=== PATIENT | female | born 1945 | race Caucasian/White ===

== ENCOUNTER → 2017-10-07 06:57 | Outpatient (CLI) | payer MEDICARE, OTHER, SELFPAY ==
[2017-10-07 08:09] LABS: Hemoglobin A1c 9.7 % (4.2-6.3)
[2017-10-07 08:16] LABS: ALB/GLOB Ratio 0.9 RATIO (0.9-2.4); AST(SGOT) 22 U/L (15-37); Alanine Aminotransfer ALT/SGPT 41 U/L (13-56); Albumin, Serum 3.7 g/dL (3.2-5.0); Alkaline Phosphatase 139 U/L (45-117); Anion Gap 8 (5-15); BUN 24 mg/dL (7-18); BUN/Creat Ratio 27.5 RATIO (10-20); Calcium,Total 8.3 mg/dL (8.5-10.1); Chloride 97 mmol/L (98-107); Cholesterol 200 mg/dL (200); Creatinine, Serum 0.87 mg/dL (0.55-1.02); EST Glomerular Filtration Rate 68 mL/min (>60); Est Glom Filt Rate - Afr Amer 82 mL/min (>60); Globulin 3.9 g/dL (2.2-4.2); Glucose 250 mg/dL (74-106); High Density Lipoprotein 56 mg/dL; Potassium 3.7 mmol/L (3.5-5.1); Protein, Total 7.6 g/dL (6.4-8.2); Sodium Level 136 mmol/L (136-145); Thyroid Stim Hormone (TSH) 1.06 uIU/mL (0.358-3.74); Triglycerides 358 mg/dL; Very Low Density Lipoprotein 72 mg/dL (5-40)
== END ==
PROVIDERS: Family Provider Family Medicine; PCP Family Medicine; Visit Provider Internal Medicine Endocrinology, Diabetes & Metabolism
DX: E11.65 Type 2 diabetes mellitus with hyperglycemia (principal)
CPT/HCPCS: 36415; 80053; 80061; 83036; 84443

== ENCOUNTER 2017-12-16 10:00 | Emergency (ER) | payer MEDICARE, OTHER, SELFPAY ==
[2017-12-16 10:02] VITALS: BP 177/99; PULSE 86; RESP 16; TEMP 36.9; O2SAT 94; BMI 33.2
--- NOTE | 2017-12-16 11:07 | ED.VISSUMM ---
- ER Visit Summary Date of Service: 12/16/17 Chief Complaint: Diabetic problem History of Present Illness: The patient is a 72 F who has a diabetic monitoring device on her right arm. She states she usually wears it for 14 days. The current one is only been on for 9 days. The monitor is starting to come loose and will not connect to show a reading. She states she was told that if it comes loose she should go to the emergency room and have them go back in place. Physical Examination: Vital signs are significant for blood pressure 177/99, otherwise unremarkable. Patient sitting upright in bed reading a book. She is in no acute distress. Skin examination is significant for a white round monitoring device on the right upper arm that is loose along the anterior border. No underlying skin changes are noted. Test Results: [] Emergency Department Course and Treatment: Endocrinology nurse from the hospital came down. She states that if the device is not connecting to the monitor there is no point in trying to reattach it. It simply needs to be removed. Patient cannot get her next device for another 3 days. She was instructed to use fingerstick blood sugars until that time. The patient follows up with an slurry control operator helper through [facility] [place]. I did talk to the nursing staff for this DrMayela and updated them on the patient's current situation as well. Treatment Plan: [] Disposition: Discharge Impression: Diabetic device check This note was generated with [employer] dictation software. It may contain incorrect words, spelling, and punctuation that were not noted in review of the chart prior to signing ED Disposition - Plan for ED Patient: Chief Complaint: Other, Pain/Inj Referrals: Theodore Rodríguez DO [Primary Care Provider] -
--- NOTE | 2017-12-16 11:09 | ED.DEP ---
ED Disposition - Plan for ED Patient: Disposition: Home or Assisted Living Chief Complaint: Other, Pain/Inj Referrals: Theodore Rodríguez DO [Primary Care Provider] - Additional Instructions: Use finger stick blood sugars for the next [address] a new monitoring device.
[2017-12-16 11:21] VITALS: BP 160/70; PULSE 82; RESP 18; O2SAT 98
== END 2017-12-16 11:22 | disposition home or self-care (01) ==
PROVIDERS: Emergency Provider Emergency Medicine; Family Provider Family Medicine; PCP Family Medicine
DX: T85.628A Displacement of other specified internal prosthetic devices, implants and grafts, initial encounter (principal); Z86.73 Personal history of transient ischemic attack (TIA), and cerebral infarction without residual deficits
CPT/HCPCS: 99282

== ENCOUNTER → 2018-02-11 12:53 | Outpatient (CLI) | payer MEDICARE, OTHER, SELFPAY ==
[2018-02-11 14:59] LABS: Anion Gap 9 (5-15); BUN 23 mg/dL (7-18); Calcium,Total 9.2 mg/dL (8.5-10.1); Chloride 99 mmol/L (98-107); Creatinine, Serum 1.15 mg/dL (0.55-1.02); EST Glomerular Filtration Rate 50 mL/min (>60); Est Glom Filt Rate - Afr Amer 60 mL/min (>60); Glucose 172 mg/dL (74-106); Potassium 3.4 mmol/L (3.5-5.1); Sodium Level 140 mmol/L (136-145)
[2018-02-11 15:06] LABS: BNP,B-Type NATRIURETIC PEPTIDE < 2.0 pg/mL (0-100)
== END ==
PROVIDERS: Family Provider Family Medicine; PCP Family Medicine; Visit Provider Nurse Practitioner Family
DX: I10 Essential (primary) hypertension (principal); R06.02 Shortness of breath
CPT/HCPCS: 36415; 80048; 83880

== ENCOUNTER → 2018-02-13 06:11 | Outpatient (CLI) | payer MEDICARE, OTHER, SELFPAY ==
--- NOTE | 2018-02-13 08:07 | ECHOD_ITS ---
Reason For Study: SOB Procedure This was a 2D Doppler, Color Flow transthoracic echocardiogram. The exam was of poor technical quality due to body habitus. The study was technically difficult. Exam performed in department. Left Ventricle Normal LV size. Left ventricular systolic function is normal. The estimated ejection fraction is 65 %. Normal diastology for age. No regional wall motion abnormalities noted. Right Ventricle Normal RV size. Normal systolic function. Atria Normal left atrium. Normal right atrium. No doppler evidence for ASD. Mitral Valve There is no mitral annular calcification. Normal mitral valve. Trivial mitral valve insufficiency. Tricuspid Valve Normal tricuspid valve. Mild tricuspid valve insufficiency. Right ventricular systolic pressure estimated to be 25 mmHg. Aortic Valve Trisinus/trileaflet aortic valve. Mild focal aortic valve calcification. Pulmonic Valve The pulmonic valve is not well visualized. Trivial pulmonic valve insufficiency. Great Vessels Normal sized aortic root. Pericardium/Pleural No pericardial effusion. MMode/2D Measurements & Calculations LVIDd: 3.7 cm IVSd: 1.3 cm Ao root diam: 3.2 cm LVIDs: 2.4 cm LVPWd: 1.2 cm RVDd: 3.1 cm FS: 35.9 % LAV(MOD-bp): 24.2 ml LA A4 area: 9.9 cm2 RA A4 area: 8.1 cm2 LAV(MOD-bp) Indexed: 13.5 ml/m2 LAV(MOD-sp2): 29.5 ml LAV(MOD-sp4): 20.0 ml Doppler Measurements & Calculations MV E max klaus: 54.5 cm/sec Lat Peak E' Klaus: 5.6 cm/sec Med Peak E' Klaus: 4.1 cm/sec MV A max klaus: 97.1 cm/sec E/E' lat: 9.7 E/E' med: 13.2 MV E/A: 0.56 Ao V2 max: 118.9 cm/sec LV V1 max: 96.4 cm/sec PA V2 max: 79.1 cm/sec Ao max P.7 mmHg LV V1 max P.7 mmHg Ao V2 mean: 84.3 cm/sec Ao mean P.3 mmHg Ao V2 VTI: 21.9 cm TR max klaus: 233.5 cm/sec TR max P.8 mmHg Interpretation Summary The study was technically difficult. Left ventricular systolic function is normal. The estimated ejection fraction is 65 %. Trivial mitral valve insufficiency. Mild tricuspid valve insufficiency. Mild focal aortic valve calcification. Trivial pulmonic valve insufficiency. Right ventricular systolic pressure estimated to be 25 mmHg. Normal diastology for age. Ordering Physician: RENZO Saldana Referring Physician: Theodore Rodríguez M.D. Performed By: Ana Longoria RDCS, SANJANAT
== END ==
PROVIDERS: Family Provider Family Medicine; PCP Family Medicine; Visit Provider Nurse Practitioner Family
DX: R06.02 Shortness of breath (principal); R07.9 Chest pain, unspecified
CPT/HCPCS: 93306

== ENCOUNTER → 2018-02-24 08:55 | Outpatient (CLI) | payer MEDICARE, OTHER, SELFPAY ==
--- NOTE | 2018-02-24 08:59 | STEWCON_ITS ---
Reason For Study: CAD Stress Results Protocol: Dobutamine Stress Echo Maximum Predicted HR: 150 bpm Target HR: 128 bpm% Maximum Pre dicted HR: 87 % DurationHeart Rate Stage (mm:ss) (bpm) BPCom ment Baseline 73 167/87 Definity 5 ML Diluted Given; No Chest Pain DSE 10 MCG 3:27 71 160/65No Chest Pain DSE 20 MCG 3:00 10 0 160/61No Chest Pain DSE 30 MCG 3:00 11 6 145/59No Chest Pain DSE 40 MCG 3:45 13 0 132/61Atropine 0.25 MG IVP; No Chest Pain Recovery 88 133/62 No Chest Pain Stress Duration: 13:12 mm:ss Maximum Stress HR: 130 bpm Baseline Echocardiogram Findings Stress Echo Wall motion Data Resting WMIntermediate WMStress WM Resting Wall Motion Wall Motion Int. Wall Motion Stress All segments Normal. All segments Hyperkinetic. All segments Hyperkinetic. Ejection Fraction 55 %. Ejection Fraction 65 %. Ejection Fraction 75 %. Stress Results Heart rate response: target heart rate achieved Arrhythmias: occasional PVC during infusion and recovery; isolated ventricular couplet during infusion. EKG Data Baseline ECG: NSR. Peak pharmacologic ECG: no obvious ECG changes. Symptoms with Stress No c/o chest pain during infusion / recovery. Interpretation Summary The study was technically difficult. Contrast injection was performed. Negative (adequate) Dobutamine Stress Echocardiogram Ordering Physician: RENZO Saldana Referring Physician: Tom Cabrales M.D. Performed By: Alise Sutton RDCS
== END ==
PROVIDERS: Family Provider Family Medicine; PCP Family Medicine; Visit Provider Nurse Practitioner Family
DX: R07.9 Chest pain, unspecified (principal); G47.33 Obstructive sleep apnea (adult) (pediatric); Z79.899 Other long term (current) drug therapy; I25.10 Atherosclerotic heart disease of native coronary artery without angina pectoris; I10 Essential (primary) hypertension; E11.9 Type 2 diabetes mellitus without complications; K21.9 Gastro-esophageal reflux disease without esophagitis; Z79.4 Long term (current) use of insulin
CPT/HCPCS: 93017; 93350; J7030; Q9957; A4216; C8928

== ENCOUNTER → 2018-05-01 08:05 | Outpatient (CLI) | payer MEDICARE, OTHER, SELFPAY ==
[2018-05-01 09:13] LABS: Hemoglobin A1c 8.9 % (4.2-6.3)
[2018-05-01 09:27] LABS: AST(SGOT) 25 U/L (15-37); Alanine Aminotransfer ALT/SGPT 45 U/L (13-56); Albumin, Serum 3.9 g/dL (3.2-5.0); Alkaline Phosphatase 137 U/L (45-117); Anion Gap 6 (5-15); BUN 16 mg/dL (7-18); BUN/Creat Ratio 18.5 RATIO (10-20); Calcium,Total 8.6 mg/dL (8.5-10.1); Chloride 99 mmol/L (98-107); Cholesterol 294 mg/dL (200); Creatinine, Serum 0.86 mg/dL (0.55-1.02); EST Glomerular Filtration Rate 69 mL/min (>60); Est Glom Filt Rate - Afr Amer 83 mL/min (>60); Globulin 3.8 g/dL (2.2-4.2); Glucose 269 mg/dL (74-106); High Density Lipoprotein 58 mg/dL; Potassium 4.4 mmol/L (3.5-5.1); Protein, Total 7.7 g/dL (6.4-8.2); Sodium Level 134 mmol/L (136-145); Thyroid Stim Hormone (TSH) 2.14 uIU/mL (0.358-3.74); Triglycerides 297 mg/dL; Very Low Density Lipoprotein 59 mg/dL (5-40)
== END ==
PROVIDERS: Family Provider Family Medicine; PCP Family Medicine; Referring Provider Internal Medicine Endocrinology, Diabetes & Metabolism; Visit Provider Internal Medicine Endocrinology, Diabetes & Metabolism
DX: E11.65 Type 2 diabetes mellitus with hyperglycemia (principal)
CPT/HCPCS: 36415; 80053; 80061; 83036; 84443

== ENCOUNTER 2019-02-25 20:07 | Emergency (ER) | payer MEDICARE, OTHER, SELFPAY ==
[2018-10-01 15:19] VITALS: BMI 33.3
[2019-02-25 20:09] VITALS: BP 165/82; PULSE 83; RESP 18; TEMP 36.6; O2SAT 96; BMI 33.0
--- NOTE | 2019-02-25 20:41 | RAD_ITS ---
STUDY: X-RAY - RIGHT TIBIA AND FIBULA REASON FOR EXAM: Female, 73 years old. Pain after falling. TECHNIQUE: 2 view(s) of the tibia and fibula were obtained. COMPARISON: None. FINDINGS: Multiple fragments at the tip of the lateral malleolus of indeterminate age. Fragments at the tip of the lateral malleolus of indeterminate age. Otherwise normal tibia and fibula status post total knee replacement with no acute hardware findings. Diffuse swelling of the ankle and medial side of the leg. RAD/Tibia & Fibula 2 Views IMPRESSION: Small osseous fragments at the tip of the medial and lateral malleolar line. Avulsion injuries of indeterminate age. Otherwise negative for fracture of the tibia or fibula. Total knee replacement intact with no hardware abnormality. Electronically Signed: Jessica Livingston MD at 21:37 EDT , Service support ,
--- NOTE | 2019-02-25 20:42 | ED.DCSUM_ITS ---
- ER Visit Summary Date of Service: 02/25/19 Chief Complaint: Fall x2 with right lower leg and left posterior shoulder pain. History of Present Illness: The patient is a 73 F getting in her hammock when it was over and she fell to the ground. She got back in it and fell again. She denies any head injury. No LOC. She is on no blood thinners besides aspirin. Denies any neck pain. Complaining of left posterior shoulder pain and right lower leg pain. No chest or abdominal pain. Physical Examination: Older female no acute distress. Vital signs are stable. She is afebrile. HEENT exam unremarkable atraumatic. Pupils round reactive light. No hematoma or swelling to the face or scalp. C-spine nontender. Back nontender. Trachea midline. Lungs clear to auscultation bilaterally. Heart regular rate and rhythm no murmur. Chest were nontender. Abdomen soft nontender. Pelvic girdle intact. Extremities moves all 4. Neurovascular intact. She has limited range of motion with extension her left elbow which is chronic. Both hands neurovascular intact. Her left posterior shoulder is swollen and tender. There is no gross bony deformity. Her right lower leg just below the knee the tib-fib is swollen and tender. Right foot neurovascular intact with normal touch sensation pulse and dorsi plantarflexion. Left lower extremity is unremarkable as is the right upper extremity. Neurologically she is awake and alert. Hard of hearing but no focal motor deficits. Answering questions and acting appropriately. Test Results: Left shoulder x-ray 3 view shows no acute abnormality read by myself. Right tibia and fibula x-ray no acute abnormality read by myself 2 views. Prosthesis has no acute abnormality either. Emergency Department Course and Treatment: Treated with [place] for pain. Repeat exam she is doing well at 2130. I discussed the x-ray results with her and her . Treatment Plan: She will use Tylenol at home for pain.. Disposition: discharge Impression: Fall out of a hammock x2 Left shoulder contusion Right lower leg contusion This note was generated with [employer] dictation software. It may contain incorrect words, spelling, and punctuation that were not noted in review of the chart prior to signing ED Disposition - Plan for ED Patient: Referrals: Theodore Rodríguez DO [Primary Care Provider] -
[2019-02-25] MEDS: HYDROcodone Bitartrate/Apap 5/325 Tablet PO (20:56)
--- NOTE | 2019-02-25 20:57 | RAD_ITS ---
STUDY: X-RAY - LEFT SHOULDER REASON FOR EXAM: Female, 73 years old. Pain after falling from hammock. TECHNIQUE: 4 view(s) of the shoulder. COMPARISON: None. FINDINGS: Normal glenohumeral articulation. Normal acromioclavicular joint. Normal acromion. Normal humeral head and visualized proximal humerus. The soft tissue structures are unremarkable. Normal visualized pulmonary apex. RAD/Shoulder min 2 Views IMPRESSION: Normal x-ray examination of the shoulder. Electronically Signed: Jessica Livingston MD at 21:38 EDT , Service support ,
--- NOTE | 2019-02-25 21:32 | ED.DEP ---
ED Disposition - Plan for ED Patient: Disposition: Home or Assisted Living Instructions: CONTUSION, Lower Extremity Referrals: Theodore Rodríguez DO [Primary Care Provider] - As Needed Additional Instructions: Ice and elevate both your left shoulder and right knee. You have significant bruises to both. Tylenol and Motrin or Naprosyn for pain. Your x-rays are unremarkable tonight. Follow-up if not improving.
== END 2019-02-25 21:57 | disposition home or self-care (01) ==
PROVIDERS: Emergency Provider Emergency Medicine; Family Provider Family Medicine; PCP Family Medicine
DX: S40.012A Contusion of left shoulder, initial encounter (principal); S80.11XA Contusion of right lower leg, initial encounter; W17.89XA Other fall from one level to another, initial encounter; Y93.9 Activity, unspecified; Y92.9 Unspecified place or not applicable; Y99.9 Unspecified external cause status; R19.7 Diarrhea, unspecified; I25.10 Atherosclerotic heart disease of native coronary artery without angina pectoris; E11.9 Type 2 diabetes mellitus without complications; I10 Essential (primary) hypertension; Z79.4 Long term (current) use of insulin; Z79.899 Other long term (current) drug therapy; Z86.73 Personal history of transient ischemic attack (TIA), and cerebral infarction without residual deficits; Z95.5 Presence of coronary angioplasty implant and graft
CPT/HCPCS: 73030; 73590; 99282

== ENCOUNTER → 2019-03-15 07:05 | Outpatient (CLI) | payer MEDICARE, OTHER, SELFPAY ==
[2019-02-25 20:09] VITALS: BMI 33.0
[2019-03-15 08:40] LABS: ALB/GLOB Ratio 0.9 RATIO (0.9-2.4); AST(SGOT) 23 U/L (15-37); Alanine Aminotransfer ALT/SGPT 37 U/L (13-56); Albumin, Serum 3.4 g/dL (3.2-5.0); Alkaline Phosphatase 170 U/L (45-117); Anion Gap 8 (5-15); BUN 17 mg/dL (7-18); BUN/Creat Ratio 21.1 RATIO (10-20); Calcium,Total 8.4 mg/dL (8.5-10.1); Chloride 104 mmol/L (98-107); Cholesterol 276 mg/dL (200); Creatinine, Serum 0.81 mg/dL (0.55-1.02); EST Glomerular Filtration Rate 74 mL/min (>60); Est Glom Filt Rate - Afr Amer 90 mL/min (>60); Globulin 3.9 g/dL (2.2-4.2); Glucose 187 mg/dL (74-106); High Density Lipoprotein 63 mg/dL; Potassium 3.4 mmol/L (3.5-5.1); Protein, Total 7.3 g/dL (6.4-8.2); Sodium Level 139 mmol/L (136-145); Triglycerides 148 mg/dL; Very Low Density Lipoprotein 30 mg/dL (5-40)
[2019-03-15 08:52] LABS: Hemoglobin A1c 9.1 % (4.2-6.3)
== END ==
PROVIDERS: Family Provider Family Medicine; PCP Family Medicine; Referring Provider Internal Medicine Endocrinology, Diabetes & Metabolism; Visit Provider Internal Medicine Endocrinology, Diabetes & Metabolism
DX: E11.65 Type 2 diabetes mellitus with hyperglycemia (principal)
CPT/HCPCS: 36415; 80053; 80061; 83036

== ENCOUNTER 2019-03-17 13:30 | Outpatient (RCR) | payer MEDICARE, OTHER, SELFPAY ==
[2018-10-01 15:19] VITALS: BMI 33.3
--- NOTE | 2019-02-17 09:18 | HP.PTEVAL ---
Patient's Visit Information MARINA DALTON is a 73 year old F referred to Physical Therapy by Dirk Mckeon MD with a diagnosis of Lumbago with sciatica. Date of Evaluation: 02/17/19 Physical Therapist: JIMBO De La OT, OCS, CSCS - Visit Plan Frequency: 2x /Week Duration: 4-6 Weeks Plan: Will need water proof dressing on L UE to cover glucometer. Will check with doctor if it can be submerged and bring in box for us to look at. Should wear waterproof dressing over it until verified adn should check blood sugar before and after. Pt to be using cane. 2x/week for 4 weeks for water therapy for LB ROM, NS core strength, LE strength and muscle pumping and balance( tandem stance, fucntional weight shifts). - Subjective Findings: Dr. Mckeon wants her to have water therapy. Legs go to sleep when she stands up. Had x ray and will have MRI. Walking 300 feet makes go to sleep. Gone after sitting a while. No real pain. This leg to sleep thing has been going on for months and insidiously. Had a stroke 2 yrs ago. 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 Sleeping well. Has not fallen yet to the ground. Needs cart in [facility]. Lives with in one story modular home with steps to enter with railing. Struggle on steps but she can do it , hard to tell where feet are. Basic ADLs are OK but standing makes them hard to do. Needs to sit frequently. Has walker with seat that she uses at times in the kitchen. 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 Takes her longer to do things at home as she needs frequent breaks especially while she is washing dishes. HEP: No. Was in pool therapy years ago, not sure why but it helped. - Pain B LE tingly Pain Intensity (Out of 10): 0 Pain Intensity Range: 0, 5 - Objective blood sugar 250 to start and will take meds at home(doesn't have them with her). Walks with neuropathic gait pattern but able to speed up nicey with cues. Transfers I. Steps recip with rail. AROM ankles WFL and strength 4-/5, knee aROM WFL and hips WFL. Tightness present in gastroc and HS and quads moderately. strength knees 4/5 and hips 3+ abd and ext adn flexion. Diminished sensation to gross light touch in B LE R>L distally in feet. Tingles after walking 200 feet today and starts to walk faster to get to sitting quicker. No LOB today. reflexes 0/3 R patella and 1/3 L, achilles 1/3 B. LB aROM is mod limited in ext and min limited in flexion and SB without pain or hesitation. Palpable pedal pulse hard to find B in feet. - Balance Scores Functional Gait Assessment Score: 21 % Disability: 30.0000 - Goals Goal 1:: Walk one lap HP without tingly in legs. Goal Time Frame: 4-6 Weeks Goal 2:: Pt feel 75% better in tingling in legs and able to wash dishes without a break. Goal Time Frame: 4-6 Weeks Goal 3:: FGA to diminish fall risk. Goal Time Frame: 4-6 Weeks - Rehabilitation Potential Physical Therapy Diagnosis: Leg tingly, back degeneration vs neuroapthy vs circulatory. Rehabilitation Potential: Questionable - Anticipated Interventions Patient/Client Instruction: Educate patient on: Condition, Plan of Care For the Purpose of:: To increase tolerance to activity/condition/position, To improve gait and locomotor functions, To improve balance Therapeutic Exercise to Include: Strength training, Balance training, Flexibilty training, Gait and locomotor training, In an aquatic setting, Active ROM, Dynamic Lumbar Stabilization For the Purpose of:: To increase ROM, To increase tolerance to activity/condition/position, To improve ability of physical actions for home/community/work/leisure, To improve gait and locomotor functions, To improve balance, To improve safety with gait Thank you for the opportunity to evaluate your patient. For Medicare and Medicare HMO plans, please review the plan of care and approve it. It will need to be FAXED BACK to us at [phone] for Medicare purposes. For Medicare only, by signing this I certify the plan of care. Please let me know if there are questions or concerns regarding this plan of care. Physician Signature: Date:
--- NOTE | 2019-03-17 13:55 | HP.PTDCSUM ---
HP - PT D/C Summary It has been my pleasure to treat MARINA DALTON under orders from Dirk Mckeon MD, for the diagnosis of Lumbago with sciatica for a total of 8 visit(s). Discharge Date: 03/17/19 Please see the following information for a summary of their discharge status. - Subjective Subjective: Therapy seemed to help first 3-4 times but then fell getting on hammock and hurt R leg. Pride adn shoulder adn toe was also hurt. LB not painful today. Walking distance can vary day to day. Rainy days are worse. Tingly R leg persists. No f/u scheduled with doctor Mike. Pt says she can get around if she takes her time. No hurries. Doing HEP focussing on trasnfers and LB ROM at home. Pt feels like she is getting around OK adn can manage this on her own with the exercises we have given her. - Pain B LE tingly Pain Intensity (Out of 10): 0 R denton/ankle Pain Intensity (Out of 10): 0 L Shldr Pain Intensity (Out of 10): Unrated - Overall Improvement % Improvement: 50 - Objective Objective/Function: FGA is +1. Walking is improved today and legs fatigue less with 300 foot walk. Prefers R foot on steps adn needs rail. Trasnfers out of chair without UE. OVERALL SLOW IMPROVEMENT. STILLHASS SOME SIGNS OF MOTOR CONTROL ISSUES AFTER DISTANCE WALKING IN LE BUT CAN MANAGE WITH HOME EXERCISES AND REST WHEN THIS OCCURS. - Goals Goal 1:: Walk one lap HP without tingly in legs. Goal Progress: Goal Met Goal 2:: Pt feel 75% better in tingling in legs and able to wash dishes without a break. Goal Progress: 50% Goal 3:: FGA to diminish fall risk. Goal Progress: +1, not met. - Plan Plan: pt ready to be done with PT, d/c , will manage with rests adn HEP. - D/C Information Discharge Comments: Will continue via HEP stretches. If there are questions or concerns regarding this patient's physical therapy, please feel free to call me at [phone]. Thank you for the referral of this patient. Sincerely, Mango Landon, DPT, OCS, CSCS
== END 2019-03-17 19:00 | disposition home or self-care (01) ==
LOC: PT 13:30
PROVIDERS: Family Provider Family Medicine; PCP Family Medicine; Visit Provider Orthopaedic Surgery
DX: M54.41 Lumbago with sciatica, right side (principal); M51.36 Other intervertebral disc degeneration, lumbar region
CPT/HCPCS: 97113; 97162; 97530

== ENCOUNTER 2019-04-05 11:06 | Emergency (ER) | payer MEDICARE, OTHER, SELFPAY ==
[2019-04-05 10:44] VITALS: BMI 33.0
[2019-04-05 11:07] VITALS: BP 163/83; PULSE 90; RESP 17; TEMP 37; O2SAT 95; BMI 33.6
--- NOTE | 2019-04-05 11:28 | VDLE_ITS ---
Reason For Study: Swelling RIGHT GSV is normal. CFV is compressible, spontaneous, phasic, competent and demonstrates normal augmentation. FV is compressible, spontaneous, phasic, competent and demonstrates normal augmentation. POP V is compressible, spontaneous, phasic, competent and demonstrates normal augmentation. T/P Trunk is compressible. PTV is compressible. RT PerV is compressible. Patient unable to tolerate compression in the groin Hypoechoic, non vascular structure noted Rt prox calf measuring 1.47cm x 5.50cm, over area of injury/swelling. Procedure Exam performed portable in ED. A preliminary report was called and/or faxed to Dr. White. Interpretation Summary There is no evidence of right lower extremity deep vein thrombosis. Right great saphenous vein appears patent and compressible segmentally. Irregular cystic mass right proximal calf measuring 1.47 x 5.5 cm. No vascular flow noted. Clinical correlation indicated. Ordering Physician: Marci White Referring Physician: Theodore Rodríguez Performed By: Ana Longoria, ERNESTINA, RVT
--- NOTE | 2019-04-05 11:55 | ED.VISSUMM ---
- ER Visit Summary Date of Service: 04/05/19 Chief Complaint: [Pain and swelling to right leg ] History of Present Illness: The patient is a 74 F [presents with symptoms that started February 25 after a fall. Patient was seen in the emergency department and had x-rays of her right tib-fib no fractures were noted. Patient continues to have swelling and discomfort to the area. Patient was seen at urgent care today and referred to the ER to rule out DVT. She denies any fevers at home. She denies any new injury. Patient has history of prior stroke, coronary artery disease, COPD, diabetes, hypertension, and high cholesterol.] Physical Examination: [HEENT-PERRLA, EOMI. Cranial nerves II through XII grossly intact. TMs clear. Mucous membranes moist. No adenopathy. Cardiovascular-regular rate and rhythm without murmur or ectopy Lungs-clear to auscultation, chest wall stable without crepitus or subcu emphysema Abdomen-normoactive bowel sounds, soft, nontender, no rebound or rigidity, no peritoneal signs. Extremities-intact ?4, normal range of motion, normal pulses right leg-patient does have soft tissue swelling and suspected hematoma over the mid right tibia with diffuse soft tissue swelling about the calf. She is neurovascular intact distally with normal station normal cap refill. Patient has normal range of motion of the toes.] There is no erythema or warmth noted to the area of the suspected hematoma. Test Results: [Venous Doppler of the right lower extremity showed no DVT and there was a suspected hematoma.] Emergency Department Course and Treatment: [] Treatment Plan: [Patient will be referred to orthopedics for follow-up.] Disposition: [Discharged home stable condition] Impression: [Hematoma right leg] This note was generated with [employer] dictation software. It may contain incorrect words, spelling, and punctuation that were not noted in review of the chart prior to signing ED Disposition - Plan for ED Patient: Referrals: Theodore Rodríguez DO [Primary Care Provider] -
--- NOTE | 2019-04-05 12:01 | ED.DEP ---
ED Disposition - Plan for ED Patient: Instructions: Hematoma Referrals: Theodore Rodríguez DO [Primary Care Provider] - Dirk Mckeon MD [STAFF PHYSICIAN] - 3-5 Days
== END 2019-04-05 12:06 | disposition home or self-care (01) ==
LOC: ED 11:58
PROVIDERS: Emergency Provider Emergency Medicine; Family Provider Family Medicine; PCP Family Medicine
DX: S80.11XA Contusion of right lower leg, initial encounter (principal); M79.89 Other specified soft tissue disorders; W19.XXXA Unspecified fall, initial encounter; Y93.9 Activity, unspecified; Y92.9 Unspecified place or not applicable; Y99.9 Unspecified external cause status; I25.10 Atherosclerotic heart disease of native coronary artery without angina pectoris; E11.9 Type 2 diabetes mellitus without complications; I10 Essential (primary) hypertension; J44.9 Chronic obstructive pulmonary disease, unspecified; E78.00 Pure hypercholesterolemia, unspecified; Z79.02 Long term (current) use of antithrombotics/antiplatelets; Z79.4 Long term (current) use of insulin; Z79.899 Other long term (current) drug therapy; Z86.73 Personal history of transient ischemic attack (TIA), and cerebral infarction without residual deficits; Z85.43 Personal history of malignant neoplasm of ovary; Z95.5 Presence of coronary angioplasty implant and graft
CPT/HCPCS: 93971; 99282

== ENCOUNTER → 2019-04-14 06:52 | Outpatient (CLI) | payer MEDICARE, OTHER, SELFPAY ==
[2019-04-05 11:07] VITALS: BMI 33.6
[2019-04-14 07:35] LABS: Hematocrit 46.3 % (37-47); Hemoglobin 14.9 g/dL (12.0-15.0); Mean Corp Hgb Conc 32.2 g/dL (32-36); Mean Corpuscular Hgb 26.7 pg (27.0-32.0); Mean Corpuscular Volume 82.8 fL (81-99); Mean Platelet Vol. 9.7 fl (6.2-12.0); Platelet Count 282 K/mm3 (150-450); RBC Distribution Width CV 12.6 % (11.6-14.6); RBC Distribution Width SD 38.1 fl (35.1-43.9); Red Blood Count 5.59 M/mm3 (4.2-5.4); White Blood Count 5.3 K/mm3 (4.4-11.0)
[2019-04-14 07:41] LABS: Color, Urine Yellow (Yellow); Glucose, Dipstick 250 mg/dl (Normal); Ketone-Dipstick 5 mg/dl (Negative); Leukocyte Esterase-Dipstick 100 /ul (Negative); Nitrite-Dipstick Negative (Negative); Occult Blood-Urine Negative /ul (Negative); Protein-Dipstick Negative (Negative); Specific Gravity, Urine 1.025 (1.002-1.030); Urine Bilirubin Dipstick Negative (Negative); Urine Clarity Clear (Clear); Urine Urobilinogen Normal (Normal)
[2019-04-14 07:50] LABS: Protein, Urine (Random) 17.1 mg/dL (<11.9); Protein:Creat Ratio 97 mg/g CRE (0-200)
[2019-04-14 08:12] LABS: ALB/GLOB Ratio 0.9 RATIO (0.9-2.4); AST(SGOT) 30 U/L (15-37); Alanine Aminotransfer ALT/SGPT 38 U/L (13-56); Albumin, Serum 3.7 g/dL (3.2-5.0); Alkaline Phosphatase 143 U/L (45-117); Anion Gap 8 (5-15); BUN 22 mg/dL (7-18); BUN/Creat Ratio 24.9 RATIO (10-20); Bilirubin, Direct 0.12 mg/dL (0.00-0.30); Calcium,Total 8.9 mg/dL (8.5-10.1); Chloride 100 mmol/L (98-107); Cholesterol 338 mg/dL (200); Creatinine, Serum 0.88 mg/dL (0.55-1.02); EST Glomerular Filtration Rate 67 mL/min (>60); Est Glom Filt Rate - Afr Amer 81 mL/min (>60); Glucose 228 mg/dL (74-106); High Density Lipoprotein 65 mg/dL; Phosphorus 3.6 mg/dL (2.5-4.9); Protein, Total 7.7 g/dL (6.4-8.2); Sodium Level 137 mmol/L (136-145); Thyroid Stim Hormone (TSH) 2.18 uIU/mL (0.358-3.74); Triglycerides 218 mg/dL; Very Low Density Lipoprotein 44 mg/dL (5-40)
[2019-04-14 08:15] LABS: Hemoglobin A1c 9.5 % (4.2-6.3)
== END ==
PROVIDERS: Family Provider Family Medicine; PCP Family Medicine; Referring Provider Student in an Organized Health Care Education/Training Program; Visit Provider Student in an Organized Health Care Education/Training Program
DX: E11.22 Type 2 diabetes mellitus with diabetic chronic kidney disease (principal); N18.9 Chronic kidney disease, unspecified
CPT/HCPCS: 36415; 80053; 80061; 81002; 82248; 82570; 83036; 84100; 84156; 84443; 85027

== ENCOUNTER 2019-07-25 10:46 | Emergency (ER) | payer MEDICARE, OTHER, SELFPAY ==
[2019-07-25 10:47] VITALS: BP 146/75; PULSE 70; RESP 16; TEMP 36.6; O2SAT 98; BMI 30.7
--- NOTE | 2019-07-25 10:50 | ED.RN ---
checked bs in triage 43. sent to room.
[2019-07-25 11:00] VITALS: PULSE 78; RESP 20; O2SAT 98
--- NOTE | 2019-07-25 11:03 | ED.VIS.GEN ---
History of Present Illness Chief Complaint: Hypoglycemia Informant: Patient, Significant Other Onset: Hours - 4 Quality: fatigue Location: all over Current Severity: Mild Maximum Severity: Severe Worsened by: nothing Relieved by: eating sugar Associated Symptoms: shaky. no LOC. Narrative: Patient went out to breakfast this morning and accidentally took the wrong insulin. She was supposed to take 56 units of her Trulicity, but she instead injected 56 units of NovoLog. This was at 0715. She presents at 11 AM. She has bottomed out about 6 times already, she keeps eating sugar and juice that her has been giving her, but they are concerned because she keeps bottoming out. She has gone as low as 40 and not lost consciousness. At breakfast she usually takes 26 units of NovoLog as a type II diabetic. She has had no recent illness prior to this. She is not suicidal and this was simply accidental. - Past Medical History (1) Stroke Status: Chronic (2) Benign hypertension Status: Chronic (3) CAD (coronary artery disease) Status: Chronic (4) COPD (chronic obstructive pulmonary disease) Status: Chronic (5) Dyslipidemia Status: Chronic (6) Osteoarthritis Status: Chronic (7) Type II diabetes mellitus Status: Chronic Past Medical History - Allergies and Home Meds Allergies/Adverse Reactions: Allergies latex Allergy (Verified 07/25/19 11:00) Rash Penicillins Allergy (Verified 07/25/19 11:00) Hives Primary Care Physician: Theodore Rodríguez DO [Primary Care Provider] - Lives: Spouse/ Significant Other Smoking Status: Never smoker - Family History Maternal Family History: Family History (Last Reviewed 04/05/19 @ 10:44 by Araceli Ricardo) Other Cancer Family History: Reports: No pertinent history Paternal Family History: Family History (Last Reviewed 04/05/19 @ 10:44 by Araceli Ricardo) Other Cancer Family History: Reports: No pertinent history Review of Systems General: Reports: Malaise, Sweats. Denies: Chills, Fever Eyes: Denies: Visual changes - bilaterally, Diplopia ENT: Denies: Rhinorrhea, Sore throat Cardiovascular: Denies: Chest pain, Palpitations Respiratory: Denies: Dyspnea, Cough, Dyspnea on exertion Gastrointestinal: Denies: Abdominal pain, Nausea, Vomiting, Diarrhea, Melena, Hematochezia Genitourinary: Denies: Dysuria, Hematuria, Frequency Musculoskeletal: Denies: Back pain, Extremity Pain Skin: Denies: Rash, Wounds Neurological: Denies: Headache, Weakness, Numbness Physical Exam Vital Signs/Narrative: Vital Signs Temp Pulse Resp BP Pulse Ox 07/25/19 11:00 78 20 H 98 07/25/19 10:47 97.8 F 70 16 146/75 H 98 Inital Vital Signs reviewed: Yes General: Well nourished, Well developed, No Acute Distress Head: Normocephalic, Atraumatic Eyes: Perrl, EOMI ENT: Moist mucous membranes, No rhinorrhea Neck: Supple, Nontender Cardiovascular: Regular rate, Regular rhythm, No murmurs Respiratory: No distress, CTA bilaterally, Chest nontender Abdomen: Soft, Nontender, Nondistended, Normal bowel sounds Back: Nontender, Normal Inspection Extremities: Nontender, No edema Skin: Normal color, No rash Neurological: Alert, Oriented x3, Cranial nerves II-XII grossly intact, Normal Strength, Normal Sensation Psychological: Normal affect, Normal Mood Diagnostic/Tx/Re-eval - Medical Decision Making Patient was given food to eat and a D5 half-normal drip in an IV for several hours. At one point we rechecked her sugar and it was 127, we stop the drip and rechecked in 30 minutes and it was 128. She is feeling fine and is stable for discharge. ED Disposition - Plan for ED Patient: Disposition: Home or Assisted Living Diagnosis: Hypoglycemia, Poisoning by insulin and oral hypoglycemic [antidiabetic] drugs, accidental (unintentional), initial encounter Instructions: Diabetic Insulin Reaction Referrals: Theodore Rodríguez DO [Primary Care Provider] - As Needed
[2019-07-25] MEDS: Dext 5%-0.45% NS 1,000 ML 150 ML IV (11:13)
[2019-07-25 11:26] LABS: Bedside Glucose 60 mg/dL (70-110)
[2019-07-25 12:00] VITALS: BP 149/68; PULSE 65; RESP 20; O2SAT 97
[2019-07-25 13:15] VITALS: BP 133/68; PULSE 65; RESP 16; O2SAT 96
[2019-07-25 13:35] VITALS: BP 133/68; PULSE 65; RESP 17; O2SAT 96
== END 2019-07-25 13:35 | disposition home or self-care (01) ==
PROVIDERS: Emergency Provider Emergency Medicine; Family Provider Family Medicine; PCP Family Medicine
DX: T38.3X1A Poisoning by insulin and oral hypoglycemic [antidiabetic] drugs, accidental (unintentional), initial encounter (principal); E09.649 Drug or chemical induced diabetes mellitus with hypoglycemia without coma; Y92.9 Unspecified place or not applicable; I10 Essential (primary) hypertension; I25.10 Atherosclerotic heart disease of native coronary artery without angina pectoris; J44.9 Chronic obstructive pulmonary disease, unspecified; E78.5 Hyperlipidemia, unspecified; M19.90 Unspecified osteoarthritis, unspecified site; Z79.4 Long term (current) use of insulin; Z79.82 Long term (current) use of aspirin; Z79.899 Other long term (current) drug therapy; Z91.040 Latex allergy status; Z88.0 Allergy status to penicillin; Z86.73 Personal history of transient ischemic attack (TIA), and cerebral infarction without residual deficits
CPT/HCPCS: 82962; 96365; 96366; 99284; A4216; J7799

== ENCOUNTER 2019-08-11 17:13 | Emergency (ER) | payer MEDICARE, OTHER, SELFPAY ==
[2019-08-11 17:14] VITALS: BP 153/73; PULSE 75; RESP 18; TEMP 36.4; O2SAT 96; BMI 23.5
--- NOTE | 2019-08-11 17:58 | ED.VISSUMM ---
- ER Visit Summary Date of Service: 08/11/19 Chief Complaint: Constipation History of Present Illness: The patient is a 74 F who presents with constipation that has been getting worse over the past 3 days. Patient states she has some sharp rectal pain and pressure type pain in her rectum. Patient states this has been getting worse over the past 3 days. Patient has tried [id number] laxatives from her primary care physician with no improvement. Patient states nothing makes it better or worse. Patient denies any fevers or chills. Patient denies any abdominal pain. Patient admits to some nausea but denies any vomiting. Physical Examination: Vital signs are stable. Patient is afebrile. Patient is in no acute distress. Oral mucosa is pink and moist. Neck is supple. Trachea is midline. There is no JVD noted. Heart was regular rate and rhythm. Lungs are clear and equal bilaterally. Abdomen is soft. Bowel sounds are normal. There is no tenderness. There is no rebound or guarding noted. Skin is warm dry. Cranial nerves II through XII are intact. There are no focal motor or sensory deficits noted. Extremities are intact. There is no calf tenderness or edema. Emergency Department Course and Treatment: Patient was given a soapsuds enema here. Patient was able to have a large bowel movement after this. Patient felt better on reevaluation. Patient was instructed to continue her laxatives and stool softeners as prescribed. Patient was instructed to follow-up with her primary care physician in 5 to 7 days. Patient was instructed to eat a high-fiber diet. Patient understood and was agreeable with the plan. All questions were answered. Disposition: Discharge home Impression: Constipation This note was generated with [employer] dictation software. It may contain incorrect words, spelling, and punctuation that were not noted in review of the chart prior to signing ED Disposition - Plan for ED Patient: Disposition: Home or Assisted Living Diagnosis: Constipation Instructions: CONSTIPATION (Adult) Referrals: Theodore Rodríguez DO [COURTESY STAFF PHYSICIAN] - 5-7 Days
== END 2019-08-11 20:07 | disposition home or self-care (01) ==
PROVIDERS: Emergency Provider Emergency Medicine; PCP Student in an Organized Health Care Education/Training Program
DX: K59.00 Constipation, unspecified (principal); R30.0 Dysuria; I25.10 Atherosclerotic heart disease of native coronary artery without angina pectoris; E11.9 Type 2 diabetes mellitus without complications; Z79.84 Long term (current) use of oral hypoglycemic drugs; Z79.82 Long term (current) use of aspirin; Z79.4 Long term (current) use of insulin; Z79.899 Other long term (current) drug therapy; Z95.5 Presence of coronary angioplasty implant and graft
CPT/HCPCS: 99284

== ENCOUNTER → 2019-09-14 07:09 | Outpatient (CLI) | payer MEDICARE, OTHER, SELFPAY ==
[2019-09-14 07:52] LABS: Hematocrit 38.8 % (37-47); Hemoglobin 12.8 g/dL (12.0-15.0); Mean Corpuscular Hgb 27.2 pg (27.0-32.0); Mean Corpuscular Volume 82.6 fL (81-99); Mean Platelet Vol. 9.4 fl (6.2-12.0); Platelet Count 338 K/mm3 (150-450); RBC Distribution Width SD 36.8 fl (35.1-43.9); White Blood Count 10.6 K/mm3 (4.4-11.0)
[2019-09-14 07:57] LABS: Protein, Urine (Random) 16.7 mg/dL (<11.9); Protein:Creat Ratio 165 mg/g CRE (0-200)
[2019-09-14 08:13] LABS: AST(SGOT) 24 U/L (15-37); Alanine Aminotransfer ALT/SGPT 39 U/L (13-56); Albumin, Serum 3.6 g/dL (3.2-5.0); Alkaline Phosphatase 159 U/L (45-117); Anion Gap 7 (5-15); BUN 23 mg/dL (7-18); BUN/Creat Ratio 24.5 RATIO (10-20); Bilirubin, Direct 0.15 mg/dL (0.00-0.30); Calcium,Total 8.9 mg/dL (8.5-10.1); Chloride 99 mmol/L (98-107); Cholesterol 157 mg/dL (200); Creatinine, Serum 0.94 mg/dL (0.55-1.02); EST Glomerular Filtration Rate 62 mL/min (>60); Est Glom Filt Rate - Afr Amer 75 mL/min (>60); Globulin 4.2 g/dL (2.2-4.2); Glucose 245 mg/dL (74-106); High Density Lipoprotein 55 mg/dL; Phosphorus 3.6 mg/dL (2.5-4.9); Potassium 3.9 mmol/L (3.5-5.1); Protein, Total 7.8 g/dL (6.4-8.2); Sodium Level 136 mmol/L (136-145); Triglycerides 193 mg/dL; Very Low Density Lipoprotein 39 mg/dL (5-40)
== END ==
PROVIDERS: PCP Student in an Organized Health Care Education/Training Program; Referring Provider Student in an Organized Health Care Education/Training Program; Visit Provider Student in an Organized Health Care Education/Training Program
DX: I12.9 Hypertensive chronic kidney disease with stage 1 through stage 4 chronic kidney disease, or unspecified chronic kidney disease (principal); N18.9 Chronic kidney disease, unspecified; E78.5 Hyperlipidemia, unspecified
CPT/HCPCS: 36415; 80048; 80061; 80076; 82570; 84100; 84156; 85027

== ENCOUNTER → 2019-09-20 12:52 | Outpatient (CLI) | payer MEDICARE, OTHER, SELFPAY ==
[2019-09-20 14:38] LABS: PTHIN 76.8 pg/mL (18.4-80.1)
[2019-09-20 14:42] LABS: Vitamin B12 753 pg/mL (211-911); Vitamin D,25 Hydroxy 16.6 ng/mL
[2019-09-20 14:52] LABS: Thyroid Stim Hormone (TSH) 1.07 uIU/mL (0.358-3.74)
== END ==
PROVIDERS: PCP Student in an Organized Health Care Education/Training Program; Referring Provider Student in an Organized Health Care Education/Training Program; Visit Provider Student in an Organized Health Care Education/Training Program
DX: N18.9 Chronic kidney disease, unspecified (principal); E11.65 Type 2 diabetes mellitus with hyperglycemia; R41.89 Other symptoms and signs involving cognitive functions and awareness
CPT/HCPCS: 36415; 82306; 82607; 82746; 83970; 84443

== ENCOUNTER 2019-09-26 14:46 | Emergency (ER) | payer MEDICARE, OTHER, SELFPAY ==
[2019-09-26 14:47] VITALS: BP 183/83; PULSE 70; RESP 14; TEMP 36.4; O2SAT 97; BMI 34.9
[2019-09-26 15:24] LABS: Absolute Lymphocyte Count 2.52 X10^3/uL (0.83-4.51); Absolute Neutrophil Count 5.7 X10^3/uL (2.0-7.7); Basophil# 0.06 X10^3/uL; Basophil% 0.6 % (0-1); Eosinophil# 0.52 X10^3/uL; Eosinophils% 5.2 % (0-5); Hematocrit 37.8 % (37-47); Hemoglobin 12.3 g/dL (12.0-15.0); Lymphocyte # 2.52 X10^3/ul (4.0); Lymphocyte % 25.2 % (19-41); Mean Corp Hgb Conc 32.5 g/dL (32-36); Mean Corpuscular Hgb 27.1 pg (27.0-32.0); Mean Corpuscular Volume 83.3 fL (81-99); Mean Platelet Vol. 9.8 fl (6.2-12.0); Monocyte# 1.12 X10^3/uL; Monocyte% 11.2 % (0-10); NRBC Flagged by Analyzer 0 % (0-5); Neutrophil # 5.73 X10^3/uL (2.7-7.7); Neutrophil % 57.4 % (47-70); Platelet Count 387 K/mm3 (150-450); RBC Distribution Width CV 12.7 % (11.6-14.6); RBC Distribution Width SD 38.8 fl (35.1-43.9); Red Blood Count 4.54 M/mm3 (4.2-5.4)
--- NOTE | 2019-09-26 15:30 | RAD_ITS ---
STUDY: X-RAY CHEST REASON FOR EXAM: Female, 74 years old. HYPOGLYCEMIA, WEAKNESS, CONFUSION TECHNIQUE: PA and lateral views of the chest. COMPARISON: 10/01/2016 FINDINGS: EKG leads project over the chest. Lungs are underexpanded. Patchy opacity in the left lung base is new since the prior study. There is no demonstrated pleural abnormality. Cardiac silhouette enlargement may be accentuated by degree of hypoinflation. Normal mediastinum and isreal. Normal visualized pulmonary arteries. Normal visualized aortic arch and descending thoracic aorta. There is demineralization of the osseous structures. Normal visualized ribs, clavicles, and shoulders. Cholecystectomy surgical clips are present. RAD/Chest PA and Lateral IMPRESSION: 1. Left lower lobe infiltrate may represent atelectasis versus early pneumonia. Hypoinflation. Electronically Signed: Jose Reyes MD ([place]) at 15:49 EDT , Service support ,
[2019-09-26 15:34] LABS: ALB/GLOB Ratio 0.9 RATIO (0.9-2.4); AST(SGOT) 31 U/L (15-37); Alanine Aminotransfer ALT/SGPT 42 U/L (13-56); Albumin, Serum 3.7 g/dL (3.2-5.0); Alkaline Phosphatase 158 U/L (45-117); Anion Gap 9 (5-15); BUN 32 mg/dL (7-18); BUN/Creat Ratio 26.4 RATIO (10-20); Calcium,Total 9.2 mg/dL (8.5-10.1); Chloride 104 mmol/L (98-107); Creatinine, Serum 1.21 mg/dL (0.55-1.02); EST Glomerular Filtration Rate 46 mL/min (>60); Est Glom Filt Rate - Afr Amer 56 mL/min (>60); Estimated Creatinine Clearance 31.71 ml/min; Globulin 4.2 g/dL (2.2-4.2); Glucose 49 mg/dL (74-106); Potassium 3.4 mmol/L (3.5-5.1); Protein, Total 7.9 g/dL (6.4-8.2); Sodium Level 141 mmol/L (136-145)
[2019-09-26 15:54] VITALS: BP 146/56; PULSE 71; RESP 16; O2SAT 98
[2019-09-26 15:56] LABS: Mucous, Urine 0 SEEN /hpf (<or=2+); Squamous Epithelial Cells - UA 0 SEEN /hpf (5-10)
[2019-09-26] MEDS: 0.9% Normal Saline 1,000 ML 150 ML IV (15:59)
[2019-09-26 16:00] VITALS: BP 136/72; PULSE 72; RESP 16; O2SAT 98
[2019-09-26 16:01] LABS: Color, Urine Yellow (Yellow); Glucose, Dipstick 100 mg/dl (Normal); Ketone-Dipstick Negative (Negative); Leukocyte Esterase-Dipstick Negative /ul (Negative); Nitrite-Dipstick Negative (Negative); Occult Blood-Urine 50 /ul (Negative); Protein-Dipstick 100 mg/dl (Negative); Specific Gravity, Urine 1.015 (1.002-1.030); Urine Bilirubin Dipstick Negative (Negative); Urine Clarity Clear (Clear); Urine Urobilinogen Normal (Normal)
--- NOTE | 2019-09-26 16:02 | ED.RN ---
1 AMP D50 GIVEN IMMEDIATELY AFTER ESTABLISHING IV ACCESS. FAMILY CHECKING BLOOD GLUCOSE CONSISTENTLY AFTER ARRIVAL WITH HOME METER FREESTYLE HANK 14 DAY MONITOR,
[2019-09-26 16:09] LABS: Red Blood Cells-Urine 0-5 SEEN /hpf (0-5); White Blood Cells 0-5 SEEN /hpf (0-5)
[2019-09-26 16:10] LABS: Amorphous Sediment 1+
[2019-09-26 16:11] LABS: Bedside Glucose 137 mg/dL (70-110)
[2019-09-26 16:45] VITALS: BP 136/78; PULSE 69; RESP 16; O2SAT 99
--- NOTE | 2019-09-26 16:56 | ED.VISSUMM ---
- ER Visit Summary Date of Service: 09/26/19 3 Chief Complaint: Low blood sugar History of Present Illness: The patient is a 74 F. Who saw her reactor service operator and had her insulin doses changed last week. She had been on a sliding scale. She was changed to schedule NovoLog 10 mg in the morning 15 in the afternoon and 15 in the evening. Patient ate lunch at approximately noon that consisted of bread and meat. reports that she did not check her sugar before. He checked on her shortly thereafter and her machine read 31. He was able to get her to eat peanut butter, milk, 2 glucose tabs, and liquid glucose bottle. However her sugar continued to be low and the patient became unresponsive. After D50 in the emergency department the patient is awake and appropriate. She reports that she has a cough that is nonproductive. She denies any fever or difficulty breathing. She also complains of dysuria. She denies any other complaints. Physical Examination: Vitals: Stable. Afebrile. General: Well-nourished and well-developed. Head: Normocephalic atraumatic. Neck: Supple, no lymphadenopathy. No JVD. Nontender. Cardiovascular: Regular rate and rhythm. No murmurs. Respiratory: No respiratory distress. Clear to auscultation bilaterally. Abdominal: Soft, nontender, nondistended, normal bowel sounds. No guarding, rebound, or peritoneal signs. Back: Nontender. Extremities: Nontender, no edema. Skin: Normal color, no rash. Neurologic: Alert and oriented ?3. Cranial nerves II through XII are intact. Normal strength and sensation. Psych: Normal affect. Test Results: CBC shows monocytes of 11. Chem-7 shows a potassium of 3.4, glucose 49, BUN 32, creatinine 1.21. LFTs show an alk phos 158. Urinalysis is negative. Chest x-ray shows left lower lobe infiltrate versus atelectasis. Emergency Department Course and Treatment: Patient was given an amp of D50. She ate while here. Her sugars remained stable. I discussed the findings on the x-ray with them. They did want to have her on an antibiotic. She is been a dose of doxycycline. Treatment Plan: Patient is instructed to go back to her sliding scale that she was using previously. She be placed back on doxycycline. Instructed to follow-up with her reactor service operator in the next 3 to 5 days. Return to the emergency department for any worsening symptoms. Disposition: To home in improved and stable condition. Impression: 1. Hyperglycemia on insulin. 2. Pneumonia. This note was generated with [employer] dictation software. It may contain incorrect words, spelling, and punctuation that were not noted in review of the chart prior to signing ED Disposition - Plan for ED Patient: Disposition: Home or Assisted Living Instructions: Diabetic Insulin Reaction, PNEUMONIA (Adult) Prescriptions: Doxycycline 100 mg PO BID #14 cap Prescription Printed Referrals: Martín Garcia DO [Primary Care Provider] - 3-5 Days
[2019-09-26] MEDS: Doxycycline 100 MG CAPSULE PO (17:09)
[2019-09-26 17:19] VITALS: BP 143/75; PULSE 73; RESP 16; O2SAT 98
== END 2019-09-26 17:21 | disposition home or self-care (01) ==
LOC: ED 15:53
PROVIDERS: Emergency Provider Emergency Medicine; PCP Student in an Organized Health Care Education/Training Program
DX: E10.65 Type 1 diabetes mellitus with hyperglycemia (principal); J18.9 Pneumonia, unspecified organism; R30.0 Dysuria; I25.10 Atherosclerotic heart disease of native coronary artery without angina pectoris; I10 Essential (primary) hypertension; Z79.4 Long term (current) use of insulin; Z79.02 Long term (current) use of antithrombotics/antiplatelets; Z79.82 Long term (current) use of aspirin; Z79.899 Other long term (current) drug therapy; Z86.73 Personal history of transient ischemic attack (TIA), and cerebral infarction without residual deficits; Z95.5 Presence of coronary angioplasty implant and graft
CPT/HCPCS: 71046; 80053; 81001; 82962; 85025; 96360; 99285; J7030; A4216

== ENCOUNTER → 2020-01-27 12:46 | Outpatient (CLI) | payer MEDICARE, OTHER, SELFPAY ==
--- NOTE | 2020-01-27 12:49 | ECHOD_ITS ---
Reason For Study: MV REGURGITATION Procedure This was a 2D Doppler, Color Flow transthoracic echocardiogram. The study was technically difficult. Exam performed in department. Left Ventricle Normal LV size. Left ventricular systolic function is normal. The estimated ejection fraction is 70 %. Diastolic function is indeterminate. No regional wall motion abnormalities noted. Right Ventricle Normal RV size. Normal systolic function. Atria Normal left atrium. Normal right atrium. No doppler evidence for ASD. Mitral Valve There is no mitral annular calcification. Normal mitral valve. Trivial mitral valve insufficiency. Tricuspid Valve Normal tricuspid valve. Trivial tricuspid valve insufficiency. Right ventricular systolic pressure estimated to be 34 mmHg. Aortic Valve Trisinus/trileaflet aortic valve. Normal aortic valve. Pulmonic Valve The pulmonic valve is not well visualized. Great Vessels Normal sized aortic root. Pericardium/Pleural No pericardial effusion. MMode/2D Measurements & Calculations LVIDd: 4.1 cm IVSd: 1.1 cm Ao root diam: 3.0 cm LVIDs: 2.8 cm LVPWd: 1.1 cm RVDd: 2.5 cm FS: 31.9 % LAV(MOD-bp): 27.1 ml LA A4 area: 11.8 cm2 LA dimension(2D): 3.8 cm LAV(MOD-bp) Indexed: 15.1 ml/m2 LAV(MOD-sp2): 31.1 ml LAV(MOD-sp4): 24.6 ml RA A4 area: 10.1 cm2 Time Measurements MV dec time: 0.13 sec Doppler Measurements & Calculations MV E max klaus: 60.5 cm/sec Lat Peak E' Klaus: 8.5 cm/sec Med Peak E' Klaus: 5.7 cm/sec MV A max klaus: 97.7 cm/sec E/E' lat: 7.2 E/E' med: 10.7 MV E/A: 0.62 Ao V2 max: 124.4 cm/sec LV V1 max: 104.0 cm/sec PA V2 max: 88.9 cm/sec Ao max P.2 mmHg LV V1 max P.3 mmHg TR max klaus: 278.8 cm/sec TR max P.2 mmHg Interpretation Summary The study was technically difficult. Left ventricular systolic function is normal. The estimated ejection fraction is 70 %. Trivial mitral valve insufficiency. Trivial tricuspid valve insufficiency. Right ventricular systolic pressure estimated to be 34 mmHg. Diastolic function is indeterminate. Ordering Physician: Arlet Toledo Referring Physician: Martín Garcia Performed By: Shani Knight RDCS, RVT
== END ==
PROVIDERS: PCP Student in an Organized Health Care Education/Training Program; Referring Provider Nurse Practitioner Family; Visit Provider Nurse Practitioner Family
DX: I34.0 Nonrheumatic mitral (valve) insufficiency (principal)
CPT/HCPCS: 93306

== ENCOUNTER → 2020-05-17 | Outpatient (CLI) | payer MEDICARE, OTHER, SELFPAY | END | disposition home or self-care (01) | LOC: MTDU 17:31 | PROVIDERS: PCP Student in an Organized Health Care Education/Training Program | DX: U07.1 COVID-19 (principal); Z11.59 Encounter for screening for other viral diseases | CPT/HCPCS: 87635; C9803; U0003 ==

== ENCOUNTER → 2020-09-21 08:35 | Outpatient (CLI) | payer MEDICARE, OTHER, SELFPAY ==
[2020-09-21 10:39] LABS: Hematocrit 40.4 % (37-47); Hemoglobin 13.2 g/dL (12.0-15.0); Mean Corp Hgb Conc 32.7 g/dL (32-36); Mean Corpuscular Hgb 27.6 pg (27.0-32.0); Mean Corpuscular Volume 84.3 fL (81-99); Mean Platelet Vol. 9.9 fl (6.2-12.0); Platelet Count 335 K/mm3 (150-450); RBC Distribution Width SD 36.3 fl (35.1-43.9); Red Blood Count 4.79 M/mm3 (4.2-5.4); White Blood Count 7.4 K/mm3 (4.4-11.0)
[2020-09-21 11:16] LABS: ALB/GLOB Ratio 1.1 RATIO (0.9-2.4); AST(SGOT) 21 U/L (15-37); Alanine Aminotransfer ALT/SGPT 28 U/L (13-56); Albumin, Serum 3.7 g/dL (3.2-5.0); Alkaline Phosphatase 75 U/L (45-117); BUN 26 mg/dL (7-18); Bilirubin, Direct 0.21 mg/dL (0.00-0.30); Calcium,Total 8.9 mg/dL (8.5-10.1); Chloride 101 mmol/L (98-107); Cholesterol 110 mg/dL (200); EST Glomerular Filtration Rate 58 mL/min (>60); Est Glom Filt Rate - Afr Amer 70 mL/min (>60); Globulin 3.5 g/dL (2.2-4.2); Glucose 178 mg/dL (74-106); High Density Lipoprotein 61 mg/dL; Phosphorus 3.4 mg/dL (2.5-4.9); Potassium 4.1 mmol/L (3.5-5.1); Protein, Total 7.2 g/dL (6.4-8.2); Sodium Level 138 mmol/L (136-145); Thyroid Stim Hormone (TSH) 1.45 uIU/mL (0.358-3.74); Triglycerides 164 mg/dL; Very Low Density Lipoprotein 33 mg/dL (5-40)
[2020-09-21 12:43] LABS: PTHIN 41.4 pg/mL (18.4-80.1)
== END ==
PROVIDERS: PCP Student in an Organized Health Care Education/Training Program; Visit Provider Student in an Organized Health Care Education/Training Program
DX: E11.22 Type 2 diabetes mellitus with diabetic chronic kidney disease (principal); N18.9 Chronic kidney disease, unspecified; E11.65 Type 2 diabetes mellitus with hyperglycemia
CPT/HCPCS: 36415; 80061; 80069; 82247; 82248; 83970; 84075; 84156; 84443; 84450; 84460; 85027

== ENCOUNTER 2020-12-16 12:07 | Observation (INO) | payer MEDICARE, OTHER, SELFPAY ==
[2020-12-16] VITALS (8 sets, daily range): BP systolic 94–142; BP diastolic 49–65; PULSE 63–69; RESP 14–18; TEMP 36.1–36.6; O2SAT 98–100; BMI 34.6; BMI 31.8
--- NOTE | 2020-12-16 12:31 | RAD_ITS ---
STUDY: X-RAY CHEST REASON FOR EXAM: Female, 75 years old. Dizziness TECHNIQUE: Single AP portable view of the chest. COMPARISON: 320 FINDINGS: The lungs are clear and expanded. There is no demonstrated pleural abnormality. Normal size heart. Normal mediastinum and isreal. Normal visualized pulmonary arteries. There is atherosclerotic tortuosity of the aortic arch and descending thoracic aorta. No demonstrated acute osseous changes. There is no demonstrated abnormality of the visualized soft tissue structures of the upper abdomen. RAD/Chest 1 View (Portable) IMPRESSION: No active pulmonary disease. Electronically Signed: Cesar Oden MD at 13:03 EDT Tel , Service support ,
--- NOTE | 2020-12-16 12:31 | EKG12_ITS ---
Test Reason : DIZZY Blood Pressure : / mmHG Vent. Rate : 064 BPM Atrial Rate : 064 BPM P-R Int : 186 ms QRS Dur : 104 ms QT Int : 442 ms P-R-T Axes : 011 -39 047 degrees QTc Int : 455 ms Normal sinus rhythm Left axis deviation Nonspecific T wave abnormality Abnormal ECG Confirmed by MARLEN CASEY, RITO ([id number]), editor index GUIDO GOLD ([id number]) on 12/19/2020 1:47:37 PM Referred By: ROSAURA Confirmed By:RITO GEE MD
--- NOTE | 2020-12-16 12:33 | EX.ED.DYSGE1 ---
HPI History of Present Illness Chief Complaint: Hyperglycemia Informant: patient and spouse/S.O. Onset/Context/Timing Onset: Today Context: Sudden Onset Quality: near-syncope Current Severity: Mild Maximum Severity: Severe Worsened by: being upright Relieved by: lying down w/ EMS Associated Symptoms Associated Symptoms: nausea Narrative Narrative: Patient lives with her walking in [facility] and all of a sudden started feeling lightheaded and poorly and nearly passed out. She has an automatic/needleless glucose pattern checker with a patch on her right arm that her used to check her blood sugar, it was 195 (although in comparing his reading to our BGT, her reading is about 40 or 50 points lower, and her arm patch has been on for the full 14 days and is due to be changed tonight). EMS transported her, and upon arrival here, her blood pressure is in the 70s. However, the patient is more alert, can recall all of the events and symptoms/lack thereof. She experienced no prodromal symptoms except for lightheadedness and seeing spots/blurry vision. She denies headache, vomiting, chest pain, shortness of breath, abdominal pain, focal neurologic symptoms or numbness anywhere, or acute back pain. She does admit that she has had dysuria lately and thinks she may have a urinary tract infection. She has been compliant with her diabetes medications which include oral medications as well as insulins, and there have been no recent major changes. She ate well this morning, gravy with biscuits, potatoes, eggs. She has had no recent illness or other symptoms. No recent injury or falls/trauma. [facility] Medical History (Updated 12/16/20 @ 14:[address] Isac Jones MD) Arthritis Diabetes Heart disease HTN (hypertension) Kidney disease Kidney stone Ovarian cancer SOB (shortness of breath) Stroke Home Medications metformin 1,000 mg PO BIDCM 10/05/13 [History Last Taken 10/01/16 05:30] furosemide 20 mg PO DAILY 10/01/16 [History Last Taken 10/01/16] benazepril 20 mg PO DAILY #30 tab 10/02/16 [Rx Last Taken Unknown] pantoprazole 40 mg tablet,delayed release 40 mg PO PRN PRN 30 Days #30 09/29/17 [History Last Taken Unknown] insulin aspart U-100 10 units SQ BREAKFAST 04/05/19 [History Last Taken Unknown] insulin degludec 56 unit SQ BREAKFAST 04/05/19 [History Last Taken Unknown] aspirin 81 mg PO DAILY 07/25/19 [History Last Taken Unknown] albuterol sulfate 1 - 2 puff INHALATION Q4H PRN PRN 09/26/19 [History Last Taken Unknown] carvedilol 12.5 mg PO BID 09/26/19 [History Last Taken Unknown] ergocalciferol (vitamin D2) 50,000 unit PO Q7D 09/26/19 [History Last Taken Unknown] hydroxyzine HCl 1 - 2 tab PO QHS PRN 09/26/19 [History Last Taken Unknown] insulin aspart U-100 15 unit SQ LUNCH 09/26/19 [History Last Taken Unknown] insulin aspart U-100 15 units SQ DINNER 09/26/19 [History Last Taken Unknown] Allergy/AdvReac Type Severity Reaction Status Date / Time latex Allergy Rash Verified 12/16/20 12:45 Penicillins Allergy Hives Verified 12/16/20 12:45 Family History Other Cancer Surgical History H/O heart surgery H/O knee surgery History of cholecystectomy Social History Smoking Status: Never smoker alcohol intake: never ROS ROS ED Constitutional Constitutional ED: Reports as per HPI and other Details: lightheadedness ; Denies anorexia, chills, fever(s), night sweats or poor appetite Eyes Eyes: Reports as per HPI and blurry vision; Denies change in vision or diplopia ENT ENT ED: Denies rhinorrhea or sore throat Cardiovascular Cardiovascular: Denies chest pain or palpitations Respiratory/Chest Respiratory/Chest: Denies cough or dyspnea Gastrointestinal Gastrointestinal: Reports nausea; Denies abdominal pain, diarrhea, melena or vomiting Genitourinary Genitourinary ED: Reports dysuria; Denies hematuria or urinary frequency Musculoskeletal Musculoskeletal: Denies back pain or neck pain Integumentary Denies abscess or rash Neurologic Neurologic: Denies headache(s), paresthesias or weakness Psychiatric Psychiatric: Denies anxiety or suicidal thoughts Endocrine Endocrinology: Denies cold intolerance, heat intolerance, polydipsia or polyuria EXAM Physical Exam Const Vital Signs: 12/16/20 12:09 12/16/20 12:43 12/16/20 12:46 Temperature 97.9 F 97.9 F Temperature Source Temporal Oral Pulse Rate 64 65 Respiratory Rate 14 16 Respiratory Effort Normal Non-Labored Respiratory Pattern Normal Blood Pressure 95/56 L 94/49 L Blood Pressure Mean 69 64 Pulse Ox 98 99 Oxygen Delivery Method Room Air Room Air 12/16/20 13:57 Temperature 97.8 F Temperature Source Oral Pulse Rate 64 Respiratory Rate 14 Respiratory Effort Respiratory Pattern Blood Pressure 110/54 L Blood Pressure Mean 72 Pulse Ox 100 Oxygen Delivery Method Room Air Positive well nourished, well developed and obese Constitutional Narrative: Keenly alert, hard of hearing but at baseline per , cooperative, moving all 4 extremities equally General Appearance ED: well developed and NAD Nutritional Appearance: obese HEENT Reports moist mucous membranes normocephalic and atraumatic Eyes PERRL and EOMs intact bilaterally Neck full ROM and supple Resp normal respiratory effort and clear to auscultation bilaterally Cardio regular rate, regular rhythm, no murmurs and peripheral pulses 2+ throughout GI non-tender and non-distended Auscultation: normoactive bowel sounds Palpation: soft Back/Spine no CVA tenderness General Back: other FROM Extremity normal to inspection General Extremety ED: Negative for edema, pulses abnormal or tenderness General Extremity: Negative for edema or pulses abnormal Neuro oriented x3, CN's II-XII intact bilaterally and no sensory deficits noted Sensorium / Orientation: awake and alert Motor Exam: strength 5/5 throughout Skin no wounds Skin Narrative: Small intertriginous patch of erythematous skin left lower abdominal wall consistent with Sheyla infection, no other rashes or lesions noted. MDM MDM MDM Narrative Medical decision making narrative: In considering infectious etiologies possibly coming from urine, along with a septic response, septic work-up was ordered along with an IV fluid bolus right away. Also, the patient is on carvedilol and her heart rate is around 60, it is possible she had symptomatic bradycardia. I do not think any of this event was blood sugar related nor do I think this was a pulmonary embolus or a CARDING MACHINE FEEDER primary event. Patient was given IV fluid bolus and her blood pressure did respond well to this, going up to the low 100s systolic. She felt better. Her urine appeared to be significantly infected, she was started on Rocephin as she does not have an anaphylactic reaction to penicillins, and given all of the above and the fact that her lactate is in the 3 range, plan is for admission for further treatment and observation. Of note, sepsis is in the differential diagnosis, but I think less likely since the patient was feeling fine prior to this event, which was more suspicious of possibly something cardiac. Vasovagal etiologies are in the differential but there was no history to support this as an obvious cause. Her lactic acidosis could also be related to her Metformin use. Lab Data Attestation: I reviewed the patient's lab results. Labs: Laboratory Results - last 24 hr 12/16/20 12/16/20 12/16/20 12:27 12:40 13:01 WBC 7.4 RBC 4.53 Hgb 12.5 Hct 38.9 MCV 85.9 MCH 27.6 MCHC 32.1 RDW Std Deviation 41.5 RDW Coeff of Scotty 13.2 Plt Count 313 MPV 10.0 Immature Gran % (Auto) 0.300 Neut % (Auto) 66.6 Lymph % (Auto) 23.1 Piute % (Auto) 6.9 Eos % (Auto) 2.6 Baso % (Auto) 0.5 Absolute Neuts (auto) 4.9 Absolute Lymphs (auto) 1.70 Nucleated RBC % 0 PT INR APTT Sodium Potassium Chloride Carbon Dioxide Anion Gap BUN Creatinine Estim Creat Clear Calc Est GFR (MDRD) Af Amer Est GFR (MDRD) Non-Af BUN/Creatinine Ratio Glucose Lactic Acid Calcium Total Bilirubin AST ALT Alkaline Phosphatase Troponin I Total Protein Albumin Globulin Albumin/Globulin Ratio Urine Color Yellow Urine Clarity Cloudy Urine pH 5.0 Ur Specific [place] 1.020 Urine Protein 100 H Urine Glucose (UA) 1000 H Urine Ketones Negative Urine Occult Blood 150 H Urine Nitrite Negative Urine Bilirubin Negative Urine Urobilinogen Normal Ur Leukocyte Esterase 500 H Urine RBC 5-10 SEEN Urine WBC >100 SEEN Ur Squamous Epith Cells 0 SEEN Urine Bacteria 2+ Urine Mucus 0 SEEN POC Glucose 238 H 12/16/20 12/16/20 12/16/20 13:01 13:01 13:01 WBC RBC Hgb Hct MCV MCH MCHC RDW Std Deviation RDW Coeff of Scotty Plt Count MPV Immature Gran % (Auto) Neut % (Auto) Lymph % (Auto) Piute % (Auto) Eos % (Auto) Baso % (Auto) Absolute Neuts (auto) Absolute Lymphs (auto) Nucleated RBC % PT 12.3 INR 1.0 APTT 26.4 Sodium 136 Potassium 3.5 Chloride 100 Carbon Dioxide 26.0 Anion Gap 10 BUN 28 H Creatinine 1.50 H Estim Creat Clear Calc 25.21 Est GFR (MDRD) Af Amer 44 L Est GFR (MDRD) Non-Af 36 L BUN/Creatinine Ratio 18.7 Glucose 250 H Lactic Acid 3.9 H* Calcium 9.3 Total Bilirubin 0.60 AST 19 ALT 35 Alkaline Phosphatase 127 H Troponin I < 0.015 Total Protein 7.4 Albumin 3.7 Globulin 3.7 Albumin/Globulin Ratio 1.0 Urine Color Urine Clarity Urine pH Ur Specific [place] Urine Protein Urine Glucose (UA) Urine Ketones Urine Occult Blood Urine Nitrite Urine Bilirubin Urine Urobilinogen Ur Leukocyte Esterase Urine RBC Urine WBC Ur Squamous Epith Cells Urine Bacteria Urine Mucus POC Glucose Radiography Chest X-Ray - ED: 1 View, Read by ED Physician, No Acute Disease and No Infiltrates Diagnostic Testing: Radiology Impression Chest X-Ray 12/16/20 12:31 IMPRESSION: No active pulmonary disease. Electronically Signed: Cesar Oden MD at 13:03 EDT Tel , Service support , EKG Initial EKG: Attestation: I personally reviewed and interpreted this EKG as follows: Interpretation: Sinus Rhythm, No Acute Injury Pattern and LAFB Prior EKG tracings: available for review Prior: Unchanged Discharge Plan Dx/Rx/DC Orders Clinical Impression: Syncope, Transient hypotension, Acute UTI Disposition Disposition: Acute Care [facility]
[2020-12-16 12:36] LABS: Bedside Glucose 238 mg/dL (70-110)
[2020-12-16 12:44] LABS: Mucous, Urine 0 SEEN /hpf (<or=2+); Squamous Epithelial Cells - UA 0 SEEN /hpf (5-10)
[2020-12-16 12:47] LABS: Color, Urine Yellow (Yellow); Glucose, Dipstick 1000 mg/dl (Normal); Ketone-Dipstick Negative (Negative); Leukocyte Esterase-Dipstick 500 /ul (Negative); Nitrite-Dipstick Negative (Negative); Occult Blood-Urine 150 /ul (Negative); Protein-Dipstick 100 mg/dl (Negative); Urine Bilirubin Dipstick Negative (Negative); Urine Clarity Cloudy (Clear); Urine Urobilinogen Normal (Normal)
[2020-12-16] MEDS: 0.9% Normal Saline 1,000 ML 999 ML IV (13:02)
[2020-12-16] MEDS: Ondansetron 4 MG/2 ML Vial IV (13:02)
[2020-12-16 13:05] LABS: Bacteria 2+ /hpf (None Seen); Red Blood Cells-Urine 5-10 SEEN /hpf (0-5); White Blood Cells >100 SEEN /hpf (0-5)
[2020-12-16 13:11] LABS: Absolute Neutrophil Count 4.9 X10^3/uL (2.0-7.7); Basophil# 0.04 X10^3/uL; Basophil% 0.5 % (0-1); Eosinophil# 0.19 X10^3/uL; Eosinophils% 2.6 % (0-5); Hematocrit 38.9 % (37-47); Hemoglobin 12.5 g/dL (12.0-15.0); Lymphocyte % 23.1 % (19-41); Mean Corp Hgb Conc 32.1 g/dL (32-36); Mean Corpuscular Hgb 27.6 pg (27.0-32.0); Mean Corpuscular Volume 85.9 fL (81-99); Monocyte# 0.51 X10^3/uL; Monocyte% 6.9 % (0-10); NRBC Flagged by Analyzer 0 % (0-5); Neutrophil % 66.6 % (47-70); Platelet Count 313 K/mm3 (150-450); RBC Distribution Width CV 13.2 % (11.6-14.6); RBC Distribution Width SD 41.5 fl (35.1-43.9); Red Blood Count 4.53 M/mm3 (4.2-5.4); White Blood Count 7.4 K/mm3 (4.4-11.0)
[2020-12-16 13:20] LABS: Prothrombin Time (Protime)PT. 12.3 SECONDS (11.7-14.9)
[2020-12-16 13:21] LABS: Partial Thromboplast Time 26.4 Seconds (24.1-36.2)
[2020-12-16 13:30] LABS: AST(SGOT) 19 U/L (15-37); Alanine Aminotransfer ALT/SGPT 35 U/L (13-56); Albumin, Serum 3.7 g/dL (3.2-5.0); Alkaline Phosphatase 127 U/L (45-117); Anion Gap 10 (5-15); BUN 28 mg/dL (7-18); BUN/Creat Ratio 18.7 RATIO (10-20); Calcium,Total 9.3 mg/dL (8.5-10.1); Chloride 100 mmol/L (98-107); EST Glomerular Filtration Rate 36 mL/min (>60); Est Glom Filt Rate - Afr Amer 44 mL/min (>60); Estimated Creatinine Clearance 25.21 ml/min; Globulin 3.7 g/dL (2.2-4.2); Glucose 250 mg/dL (74-106); Potassium 3.5 mmol/L (3.5-5.1); Protein, Total 7.4 g/dL (6.4-8.2); Sodium Level 136 mmol/L (136-145)
[2020-12-16 13:41] LABS: Lactic Acid 3.9 mmol/L (0.4-1.9)
[2020-12-16] MEDS: Ceftriaxone 1 GM/50 ML BAG IV (13:56)
--- NOTE | 2020-12-16 15:24 | HP.PCM.HOS_ITS ---
HPI - General General Date of Admission: 12/16/20 HPI Narrative MARINA DALTON, is a 75 F who presents with a near syncopal episose while at [facility]. Did not lose consciousness but fell over just felt unwell. Patient was hypotensive with a systolic in the 70s. Presented to the emergency room and patient did receive IV fluids and her blood pressure did improve subsequently thereafter. Patient had complaining of dysuria for about a week and normally is able to take care of it by drinking cranberry juice but did not alleviate at this time. Patient was on IV urinary tract infection I did receive ceftriaxone while she was here. States that she has been eating and drinking well. [facility] Medical History (Updated 12/16/20 @ 15:[address] Mango Mae, ) Arthritis Diabetes Heart disease HTN (hypertension) Kidney disease Kidney stone Ovarian cancer SOB (shortness of breath) Stroke Home Medications metformin 1,000 mg PO BIDCM 10/05/13 [History Last Taken 10/01/16 05:30] furosemide 20 mg PO BID 10/01/16 [History Last Taken 10/01/16] benazepril 20 mg PO DAILY #30 tab 10/02/16 [Rx Last Taken Unknown] pantoprazole 40 mg tablet,delayed release 40 mg PO PRN PRN 30 Days #30 09/29/17 [History Last Taken Unknown] aspirin 81 mg PO DAILY 07/25/19 [History Last Taken Unknown] albuterol sulfate 1 - 2 puff INHALATION Q4H PRN PRN 09/26/19 [History Last Taken Unknown] carvedilol 12.5 mg PO BID 09/26/19 [History Last Taken Unknown] ergocalciferol (vitamin D2) 50,000 unit PO QWEEK 09/26/19 [History Last Taken Unknown] hydroxyzine HCl 1 - 2 tab PO QHS PRN 09/26/19 [History Last Taken Unknown] acetaminophen [Tylenol Extra Strength] 1,000 mg PO Q6H PRN 12/16/20 [History Last Taken Unknown] insulin aspart U-100 [Novolog Flexpen U-100 Insulin] unit SUBCUT ACHS 12/16/20 [History Last Taken Unknown] insulin degludec [Tresiba FlexTouch U-100] 45 unit SUBCUT BREAKFAST 12/16/20 [History Last Taken Unknown] Allergy/AdvReac Type Severity Reaction Status Date / Time latex Allergy Rash Verified 12/16/20 12:45 Penicillins Allergy Hives Verified 12/16/20 12:45 Family History Other Cancer Surgical History H/O heart surgery H/O knee surgery History of cholecystectomy Social History Smoking Status: Never smoker alcohol intake: never ROS ROS Narrative All review of systems were negative except as mentioned above in the history of present illness and the other review of systems. Vital Signs Vital Signs Vital Signs: 12/16/20 12:09 12/16/20 12:43 12/16/20 12:46 Temperature 36.6 C 36.6 C Temperature Source Temporal Oral Pulse Rate 64 65 Respiratory Rate 14 16 Respiratory Effort Normal Non-Labored Respiratory Pattern Normal Blood Pressure 95/56 L 94/49 L Blood Pressure Mean 69 64 Pulse Ox 98 99 Oxygen Delivery Method Room Air Room Air 12/16/20 13:57 12/16/20 14:15 Temperature 36.6 C 36.6 C Temperature Source Oral Oral Pulse Rate 64 67 Respiratory Rate 14 16 Respiratory Effort Respiratory Pattern Blood Pressure 110/54 L 101/58 L Blood Pressure Mean 72 72 Pulse Ox 100 99 Oxygen Delivery Method Room Air Room Air Weight Weight: 76.6 kg Body Mass Index (BMI) 31.8 Physical Exam Const alert and no apparent distress General Appearance: cooperative HEENT normocephalic Eyes PERRL and EOMs intact bilaterally Neck no lymphadenopathy Resp normal respiratory effort and clear to auscultation bilaterally Cardio regular rate, regular rhythm, S1 normal heart sound and S2 normal heart sound GI normal to inspection, nondistended, normoactive bowel sounds, non-tender and non-distended Extremity normal to inspection Skin no rashes or lesions noted Neuro oriented x3, CN's II-XII intact bilaterally, moves all extremities and no focal motor deficits Sensorium / Orientation: awake and alert Psych affect normal Lab / Micro Data Result Diagrams: 12/16/20 13:01 12/16/20 13:01 Labs: Laboratory Results - last 24 hr 12/16/20 12/16/20 12/16/20 12:27 12:40 13:01 WBC 7.4 RBC 4.53 Hgb 12.5 Hct 38.9 MCV 85.9 MCH 27.6 MCHC 32.1 RDW Std Deviation 41.5 RDW Coeff of Scotty 13.2 Plt Count 313 MPV 10.0 Immature Gran % (Auto) 0.300 Neut % (Auto) 66.6 Lymph % (Auto) 23.1 [place] % (Auto) 6.9 Eos % (Auto) 2.6 Baso % (Auto) 0.5 Absolute Neuts (auto) 4.9 Absolute Lymphs (auto) 1.70 Nucleated RBC % 0 PT INR APTT Sodium Potassium Chloride Carbon Dioxide Anion Gap BUN Creatinine Estim Creat Clear Calc Est GFR (MDRD) Af Amer Est GFR (MDRD) Non-Af BUN/Creatinine Ratio Glucose Lactic Acid Calcium Total Bilirubin AST ALT Alkaline Phosphatase Troponin I Total Protein Albumin Globulin Albumin/Globulin Ratio Urine Color Yellow Urine Clarity Cloudy Urine pH 5.0 Ur Specific [place] 1.020 Urine Protein 100 H Urine Glucose (UA) 1000 H Urine Ketones Negative Urine Occult Blood 150 H Urine Nitrite Negative Urine Bilirubin Negative Urine Urobilinogen Normal Ur Leukocyte Esterase 500 H Urine RBC 5-10 SEEN Urine WBC >100 SEEN Ur Squamous Epith Cells 0 SEEN Urine Bacteria 2+ Urine Mucus 0 SEEN POC Glucose 238 H 12/16/20 12/16/20 12/16/20 13:01 13:01 13:01 WBC RBC Hgb Hct MCV MCH MCHC RDW Std Deviation RDW Coeff of Scotty Plt Count MPV Immature Gran % (Auto) Neut % (Auto) Lymph % (Auto) [place] % (Auto) Eos % (Auto) Baso % (Auto) Absolute Neuts (auto) Absolute Lymphs (auto) Nucleated RBC % PT 12.3 INR 1.0 APTT 26.4 Sodium 136 Potassium 3.5 Chloride 100 Carbon Dioxide 26.0 Anion Gap 10 BUN 28 H Creatinine 1.50 H Estim Creat Clear Calc 25.21 Est GFR (MDRD) Af Amer 44 L Est GFR (MDRD) Non-Af 36 L BUN/Creatinine Ratio 18.7 Glucose 250 H Lactic Acid 3.9 H* Calcium 9.3 Total Bilirubin 0.60 AST 19 ALT 35 Alkaline Phosphatase 127 H Troponin I < 0.015 Total Protein 7.4 Albumin 3.7 Globulin 3.7 Albumin/Globulin Ratio 1.0 Urine Color Urine Clarity Urine pH Ur Specific [place] Urine Protein Urine Glucose (UA) Urine Ketones Urine Occult Blood Urine Nitrite Urine Bilirubin Urine Urobilinogen Ur Leukocyte Esterase Urine RBC Urine WBC Ur Squamous Epith Cells Urine Bacteria Urine Mucus POC Glucose Radiology Impression Chest X-Ray 12/16/20 12:31 IMPRESSION: No active pulmonary disease. Electronically Signed: Cesar Oden MD at 13:03 EDT Tel , Service support , Assessment & Plan Assessment/Plan (1) Near syncope: (2) UTI (urinary tract infection): QUALIFIERS: Urinary tract infection type: acute cystitis Hematuria presence: without hematuria Qualified Code(s): N30.00 - Acute cysti tis without hematuria (3) ABISAI (acute kidney injury): PLAN: 1. Near syncope * Likely a vasovagal event given UTI, acute kidney injury * Monitor for now * Cycle troponins 2. UTI * Has been ongoing for about a week now * Continue with ceftriaxone * Follow-up urine culture 3. Acute kidney injury * Part related with IV dehydration * Hold KIRT inhibitor as well as diuretic * Given a liter of IV fluids and reevaluate on the 4. Diabetes mellitus type 2 * Continue basal insulin and add sliding scale insulin 5. Lactic acidosis * Skewed likely due to the patient being on Metformin which will be held * I do not feel the patient has severe sepsis and 6. VTE prophylaxis not indicated as patient is observation status at this time. Case discussed with the patient's significant other bedside. Visit Charges OBSV E&M: 28818 Initial observation care L3
[2020-12-16] MEDS: Insulin Lispro 100 UNIT/ML INSULN.PEN SC ×2 (16:34→21:33)
[2020-12-16] MEDS: 0.9% Normal Saline 1,000 ML 150 ML IV (16:35)
[2020-12-16] MEDS: 0.9% Saline Lock 10 ML Syringe IV (16:35)
[2020-12-16 16:50] LABS: Bedside Glucose 314 mg/dL (70-110)
[2020-12-16 17:08] LABS: Reflex Lactate? Y
[2020-12-16 19:18] LABS: Lactic Acid 3.3 mmol/L (0.4-1.9)
--- NOTE | 2020-12-16 19:43 | NURSING ---
DR ANTONY NOTIFIED VIA TEXT OF LACTIC ACID LEVEL OF 3.3. STATES TO INFORM CAYETANO BORREGO ALSO, TEXTED HER THE RESULT. REVIEWED IV FLUIDS WITH HER. NO NEW ORDERS RECEIVED AT THIS TIME.
[2020-12-16] MEDS: Carvedilol 12.5 MG Tablet PO (21:07)
[2020-12-16] MEDS: Nystatin Powder 15gm Bottle 1 APPLIC TOPICAL (21:07)
[2020-12-16 22:00] LABS: Bedside Glucose 343 mg/dL (70-110)
[2020-12-16] MEDS: Acetaminophen 325 MG Tablet 650 MG PO (22:20)
[2020-12-17 03:00] VITALS: BP 141/52; PULSE 62; PULSE 65; RESP 16; TEMP 36.5; O2SAT 95
[2020-12-17] MEDS: Nystatin Powder 15gm Bottle 1 APPLIC TOPICAL (05:39)
--- NOTE | 2020-12-17 05:47 | NURSING ---
lying and sitting bp checked 121/58 hr 71 lying, sitting 128/73 hr 67, orthostatic bp not yet ordered checked due to diagnosis as a nursing discrection. Unable to check standing bp at this time since pt needs to work with PT.
[2020-12-17 06:33] LABS: Anion Gap 7 (5-15); BUN 25 mg/dL (7-18); BUN/Creat Ratio 20.7 RATIO (10-20); Calcium,Total 8.7 mg/dL (8.5-10.1); Chloride 104 mmol/L (98-107); Creatinine, Serum 1.21 mg/dL (0.55-1.02); EST Glomerular Filtration Rate 46 mL/min (>60); Est Glom Filt Rate - Afr Amer 56 mL/min (>60); Estimated Creatinine Clearance 31.25 ml/min; Glucose 299 mg/dL (74-106); Potassium 3.9 mmol/L (3.5-5.1); Sodium Level 136 mmol/L (136-145)
[2020-12-17 07:10] VITALS: PULSE 74
[2020-12-17 09:00] VITALS: BP 148/69; PULSE 78; RESP 16; TEMP 36.6; O2SAT 98
[2020-12-17] MEDS: Insulin NPH Human 100 UNITS/ML PEN 21 UNITS SC (09:11)
[2020-12-17] MEDS: Insulin Lispro 100 UNIT/ML INSULN.PEN SC (09:12)
[2020-12-17] MEDS: Carvedilol 12.5 MG Tablet PO (09:17)
[2020-12-17] MEDS: Aspirin 81 MG TAB.CHEW PO (09:17)
[2020-12-17] MEDS: Acetaminophen 325 MG Tablet 650 MG PO (09:20)
[2020-12-17 09:31] LABS: Bedside Glucose 347 mg/dL (70-110)
--- NOTE | 2020-12-17 10:31 | PCM.DC ---
Discharge Instructions Diet Discharge Diet: 2000 Calorie Control Diet Activity Discharge Activity: Return to Normal Activity Follow Up Care Test Results: Test results from this visit will be discussed in further detail at your follow-up appointment, if applicable. Discharge Plan Admission Admit Date/Time: 12/16/20 15:23 Attending Provider: Mango Mae Primary Care Provider: Martín Garcia Discharge Orders/Prescriptions Prescriptions: New sulfamethoxazole-trimethoprim [Bactrim DS] 800-160 mg tablet 1 tab PO BID Qty: 10 RF: 0 Continued pantoprazole 40 mg tablet,delayed release (DR/EC) 40 mg PO PRN PRN (Reason: REFLUX) 30 Days Qty: 30 RF: 0 benazepril 20 MG tablet 20 mg PO DAILY Qty: 30 RF: 0 aspirin 81 MG tablet,chewable 81 mg PO DAILY RF: 0 carvedilol 12.5 MG tablet 12.5 mg PO BID RF: 0 hydroxyzine HCl 25 MG tablet 1 - 2 tab PO QHS PRN (Reason: Itching) RF: 0 ergocalciferol (vitamin D2) 50,000 UNIT capsule 50,000 unit PO QWEEK RF: 0 albuterol sulfate 1 INHALER inhaler 1 - 2 puff inhalation Q4H PRN PRN (Reason: Sob &/Or Wheezing) RF: 0 insulin aspart U-100 [Novolog Flexpen U-100 Insulin] 100 unit/mL (3 mL) insulin pen See Protocol unit subcut BREAKFAST RF: 0 Tresiba FlexTouch U-100 100 unit/mL (3 mL) insulin pen 42 unit SUBCUT BREAKFAST RF: 0 acetaminophen 500 mg Capsule 1,000 mg PO Q6H PRN (Reason: Pain) RF: 0 insulin aspart U-100 [Novolog Flexpen U-100 Insulin] 100 unit/mL (3 mL) insulin pen See Protocol unit SUBCUT LUNCH RF: 0 insulin aspart U-100 [Novolog Flexpen U-100 Insulin] 100 unit/mL (3 mL) insulin pen See Protocol unit SUBCUT DINNER RF: 0 Changed furosemide 20 MG tablet 20 mg PO BID PRN (Reason: weight gain) Qty: 0 RF: 0 Held metformin 500 MG tablet 1,000 mg PO BIDCM RF: 0 Hold Instructions: Resume on 12/19/20. Referrals / Follow Up: Martín Garcia DO [Primary Care Provider] - Within 1 Week Disposition Disposition (needs filled in before D/C Order can be placed): Home, self care
[2020-12-17] MEDS: Ceftriaxone 1 GM/50 ML BAG IV (10:32)
--- NOTE | 2020-12-17 10:43 | DS.PCM_ITS ---
Providers Date of Admission: 12/16/20 Primary Care Physician: Dr. Martín Garcia DO Reason For Visit: NEAR SYNCOPE. UTI Diagnosis Discharge Diagnosis (1) Near syncope: Status: Acute Code(s): R55 - Syncope and collapse (2) UTI (urinary tract infection): Status: Acute Code(s): N39.0 - Urinary tract infection, site not specified Qualifiers: Urinary tract infection type: acute cystitis Hematuria presence: without hematuria Qualified Code(s): N30.00 - Acute cystitis without hematuria (3) ABISAI (acute kidney injury): Status: Acute Code(s): N17.9 - Acute kidney failure, unspecified Medications at Discharge Home Medications metformin 1,000 mg PO BIDCM 10/05/13 benazepril 20 mg PO DAILY #30 tab 10/02/16 pantoprazole 40 mg tablet,delayed release 40 mg PO PRN PRN 30 Days #30 09/29/17 aspirin 81 mg PO DAILY 07/25/19 albuterol sulfate 1 - 2 puff INHALATION Q4H PRN PRN 09/26/19 carvedilol 12.5 mg PO BID 09/26/19 ergocalciferol (vitamin D2) 50,000 unit PO QWEEK 09/26/19 hydroxyzine HCl 1 - 2 tab PO QHS PRN 09/26/19 Tresiba FlexTouch U-100 42 unit SUBCUT BREAKFAST 12/16/20 acetaminophen 1,000 mg PO Q6H PRN 12/16/20 insulin aspart U-100 [Novolog Flexpen U-100 Insulin] See Protocol SUBCUT BREAKFA ST 12/16/20 insulin aspart U-100 [Novolog Flexpen U-100 Insulin] See Protocol SUBCUT DINNER 12/16/20 insulin aspart U-100 [Novolog Flexpen U-100 Insulin] See Protocol SUBCUT LUNCH 12/16/20 furosemide 20 mg PO BID PRN #0 tab 12/17/20 sulfamethoxazole-trimethoprim [Bactrim DS] 1 tab PO BID #10 tab 12/17/20 Hospital Course Operations None Procedures None Summary of Care Provided Minutes Spent on Discharge: 28 Hospital Course: Sent 5-year-old female had a near syncopal episode while shopping at [employer] Patient was found to have urinary tract infection based on urinalysis. Patient had been complaining of dysuria for about a week. States that normally she takes some cranberry juice that seems to alleviate this dysuria but did not this time. Patient did have some transient hypotension that did resolve with IV fluids and did have a lactic acidosis. Lactic acidosis felt to be related with Metformin. Patient instructed to hold off on the Metformin for another couple days before resuming. Cultures are still pending but patient will be discharged with trimethoprim/sulfamethoxazole for 5 more days for the urinary tract infection. Patient be discharged home in stable condition. Patient was seen by therapy and recommend no additional therapy needs. Physical Exam Const alert HEENT normocephalic Resp normal respiratory effort and clear to auscultation bilaterally Cardio regular rate, regular rhythm, S1 normal heart sound and S2 normal heart sound GI normal to inspection, nondistended, normoactive bowel sounds, non-tender and non-distended ABG / Lab / Microbiology Data Attestation: I reviewed the patient's lab results. Result Diagrams: 12/16/20 13:01 12/17/20 05:54 Laboratory: Laboratory Results - last 24 hr 12/16/20 12/16/20 12/16/20 12:27 12:40 13:01 WBC 7.4 RBC 4.53 Hgb 12.5 Hct 38.9 MCV 85.9 MCH 27.6 MCHC 32.1 RDW Std Deviation 41.5 RDW Coeff of Scotty 13.2 Plt Count 313 MPV 10.0 Immature Gran % (Auto) 0.300 Neut % (Auto) 66.6 Lymph % (Auto) 23.1 [place] % (Auto) 6.9 Eos % (Auto) 2.6 Baso % (Auto) 0.5 Absolute Neuts (auto) 4.9 Absolute Lymphs (auto) 1.70 Nucleated RBC % 0 PT INR APTT Sodium Potassium Chloride Carbon Dioxide Anion Gap BUN Creatinine Estim Creat Clear Calc Est GFR (MDRD) Af Amer Est GFR (MDRD) Non-Af BUN/Creatinine Ratio Glucose Lactic Acid Calcium Total Bilirubin AST ALT Alkaline Phosphatase Troponin I Total Protein Albumin Globulin Albumin/Globulin Ratio Urine Color Yellow Urine Clarity Cloudy Urine pH 5.0 Ur Specific [place] 1.020 Urine Protein 100 H Urine Glucose (UA) 1000 H Urine Ketones Negative Urine Occult Blood 150 H Urine Nitrite Negative Urine Bilirubin Negative Urine Urobilinogen Normal Ur Leukocyte Esterase 500 H Urine RBC 5-10 SEEN Urine WBC >100 SEEN Ur Squamous Epith Cells 0 SEEN Urine Bacteria 2+ Urine Mucus 0 SEEN POC Glucose 238 H 12/16/20 12/16/20 12/16/20 13:01 13:01 13:01 WBC RBC Hgb Hct MCV MCH MCHC RDW Std Deviation RDW Coeff of Scotty Plt Count MPV Immature Gran % (Auto) Neut % (Auto) Lymph % (Auto) [place] % (Auto) Eos % (Auto) Baso % (Auto) Absolute Neuts (auto) Absolute Lymphs (auto) Nucleated RBC % PT 12.3 INR 1.0 APTT 26.4 Sodium 136 Potassium 3.5 Chloride 100 Carbon Dioxide 26.0 Anion Gap 10 BUN 28 H Creatinine 1.50 H Estim Creat Clear Calc 25.21 Est GFR (MDRD) Af Amer 44 L Est GFR (MDRD) Non-Af 36 L BUN/Creatinine Ratio 18.7 Glucose 250 H Lactic Acid 3.9 H* Calcium 9.3 Total Bilirubin 0.60 AST 19 ALT 35 Alkaline Phosphatase 127 H Troponin I < 0.015 Total Protein 7.4 Albumin 3.7 Globulin 3.7 Albumin/Globulin Ratio 1.0 Urine Color Urine Clarity Urine pH Ur Specific [place] Urine Protein Urine Glucose (UA) Urine Ketones Urine Occult Blood Urine Nitrite Urine Bilirubin Urine Urobilinogen Ur Leukocyte Esterase Urine RBC Urine WBC Ur Squamous Epith Cells Urine Bacteria Urine Mucus POC Glucose 12/16/20 12/16/20 12/16/20 16:21 16:34 18:34 WBC RBC Hgb Hct MCV MCH MCHC RDW Std Deviation RDW Coeff of Scotty Plt Count MPV Immature Gran % (Auto) Neut % (Auto) Lymph % (Auto) [place] % (Auto) Eos % (Auto) Baso % (Auto) Absolute Neuts (auto) Absolute Lymphs (auto) Nucleated RBC % PT INR APTT Sodium Potassium Chloride Carbon Dioxide Anion Gap BUN Creatinine Estim Creat Clear Calc Est GFR (MDRD) Af Amer Est GFR (MDRD) Non-Af BUN/Creatinine Ratio Glucose Lactic Acid Calcium Total Bilirubin AST ALT Alkaline Phosphatase Troponin I < 0.015 < 0.015 Total Protein Albumin Globulin Albumin/Globulin Ratio Urine Color Urine Clarity Urine pH Ur Specific [place] Urine Protein Urine Glucose (UA) Urine Ketones Urine Occult Blood Urine Nitrite Urine Bilirubin Urine Urobilinogen Ur Leukocyte Esterase Urine RBC Urine WBC Ur Squamous Epith Cells Urine Bacteria Urine Mucus POC Glucose 314 H 12/16/20 12/16/20 12/17/20 18:34 21:06 05:54 WBC RBC Hgb Hct MCV MCH MCHC RDW Std Deviation RDW Coeff of Scotty Plt Count MPV Immature Gran % (Auto) Neut % (Auto) Lymph % (Auto) [place] % (Auto) Eos % (Auto) Baso % (Auto) Absolute Neuts (auto) Absolute Lymphs (auto) Nucleated RBC % PT INR APTT Sodium 136 Potassium 3.9 Chloride 104 Carbon Dioxide 25.0 Anion Gap 7 BUN 25 H Creatinine 1.21 H Estim Creat Clear Calc 31.25 Est GFR (MDRD) Af Amer 56 L Est GFR (MDRD) Non-Af 46 L BUN/Creatinine Ratio 20.7 H Glucose 299 H Lactic Acid 3.3 H* Calcium 8.7 Total Bilirubin AST ALT Alkaline Phosphatase Troponin I Total Protein Albumin Globulin Albumin/Globulin Ratio Urine Color Urine Clarity Urine pH Ur Specific [place] Urine Protein Urine Glucose (UA) Urine Ketones Urine Occult Blood Urine Nitrite Urine Bilirubin Urine Urobilinogen Ur Leukocyte Esterase Urine RBC Urine WBC Ur Squamous Epith Cells Urine Bacteria Urine Mucus POC Glucose 343 H 12/17/20 09:10 WBC RBC Hgb Hct MCV MCH MCHC RDW Std Deviation RDW Coeff of Scotty Plt Count MPV Immature Gran % (Auto) Neut % (Auto) Lymph % (Auto) [place] % (Auto) Eos % (Auto) Baso % (Auto) Absolute Neuts (auto) Absolute Lymphs (auto) Nucleated RBC % PT INR APTT Sodium Potassium Chloride Carbon Dioxide Anion Gap BUN Creatinine Estim Creat Clear Calc Est GFR (MDRD) Af Amer Est GFR (MDRD) Non-Af BUN/Creatinine Ratio Glucose Lactic Acid Calcium Total Bilirubin AST ALT Alkaline Phosphatase Troponin I Total Protein Albumin Globulin Albumin/Globulin Ratio Urine Color Urine Clarity Urine pH Ur Specific [place] Urine Protein Urine Glucose (UA) Urine Ketones Urine Occult Blood Urine Nitrite Urine Bilirubin Urine Urobilinogen Ur Leukocyte Esterase Urine RBC Urine WBC Ur Squamous Epith Cells Urine Bacteria Urine Mucus POC Glucose 347 H Radiography Diagnostic Testing: Radiology Impression Chest X-Ray 12/16/20 12:31 IMPRESSION: No active pulmonary disease. Electronically Signed: Cesar Oden MD at 13:03 EDT Tel , Service support , D/C Instructions Discharge Diet: 2000 Calorie Control Diet Discharge Activity: Return to Normal Activity Meaningful Use Info Meaningful Use Diagnoses (Choose all that apply): None applicable Discharge Plan Admission Admit Date/Time: 12/16/20 15:23 Attending Provider: Mango Mae Primary Care Provider: Martín Garcia Instructions Additional Instructions / Restrictions: Patient Problems: Altered Health Status related to Hospitalization Patient Goals: *Optimal Level of Health *Keep Appointments *Medication Compliance *Remain Safe Discharge Orders/Prescriptions Prescriptions: New sulfamethoxazole-trimethoprim [Bactrim DS] 800-160 mg tablet 1 tab PO BID Qty: 10 RF: 0 Continued pantoprazole 40 mg tablet,delayed release (DR/EC) 40 mg PO PRN PRN (Reason: REFLUX) 30 Days Qty: 30 RF: 0 benazepril 20 MG tablet 20 mg PO DAILY Qty: 30 RF: 0 aspirin 81 MG tablet,chewable 81 mg PO DAILY RF: 0 carvedilol 12.5 MG tablet 12.5 mg PO BID RF: 0 hydroxyzine HCl 25 MG tablet 1 - 2 tab PO QHS PRN (Reason: Itching) RF: 0 ergocalciferol (vitamin D2) 50,000 UNIT capsule 50,000 unit PO QWEEK RF: 0 albuterol sulfate 1 INHALER inhaler 1 - 2 puff inhalation Q4H PRN PRN (Reason: Sob &/Or Wheezing) RF: 0 insulin aspart U-100 [Novolog Flexpen U-100 Insulin] 100 unit/mL (3 mL) insulin pen See Protocol unit subcut BREAKFAST RF: 0 Tresiba FlexTouch U-100 100 unit/mL (3 mL) insulin pen 42 unit SUBCUT BREAKFAST RF: 0 acetaminophen 500 mg Capsule 1,000 mg PO Q6H PRN (Reason: Pain) RF: 0 insulin aspart U-100 [Novolog Flexpen U-100 Insulin] 100 unit/mL (3 mL) insulin pen See Protocol unit SUBCUT LUNCH RF: 0 insulin aspart U-100 [Novolog Flexpen U-100 Insulin] 100 unit/mL (3 mL) insulin pen See Protocol unit SUBCUT DINNER RF: 0 Changed furosemide 20 MG tablet 20 mg PO BID PRN (Reason: weight gain) Qty: 0 RF: 0 Held metformin 500 MG tablet 1,000 mg PO BIDCM RF: 0 Hold Instructions: Resume on 12/19/20. Referrals / Follow Up: Martín Garcia DO [Primary Care Provider] - Within 1 Week (Please call to schedule follow up appointment) Disposition Disposition (needs filled in before D/C Order can be placed): Home, self care Visit Charges OBSV E&M: 84312 Observation care discharge
== END 2020-12-17 10:41 | disposition home or self-care (01) ==
LOC: ED 14:24 → PCU 16:46
PROVIDERS: Emergency Provider Emergency Medicine; PCP Student in an Organized Health Care Education/Training Program
DX: R55 Syncope and collapse (principal); N30.00 Acute cystitis without hematuria; I95.9 Hypotension, unspecified; N17.9 Acute kidney failure, unspecified; E86.0 Dehydration; E11.65 Type 2 diabetes mellitus with hyperglycemia; M19.90 Unspecified osteoarthritis, unspecified site; I10 Essential (primary) hypertension; I51.9 Heart disease, unspecified; Z79.4 Long term (current) use of insulin; Z79.82 Long term (current) use of aspirin; Z79.899 Other long term (current) drug therapy; E87.2 Acidosis
CPT/HCPCS: 36415; 71045; 80048; 80053; 81001; 82962; 83605; 84484; 85025; 85610; 85730; 87040; 87077; 87086; 87088; 87186; 93005; 96361; 96365; 96366; 96375; 97162; 97165; 99218; 99285; J7030; P9612; A4216; G0378; J2405

== ENCOUNTER 2021-03-16 15:14 | Emergency (ER) | payer MEDICARE, OTHER, SELFPAY ==
[2021-03-16] VITALS (9 sets, daily range): BP systolic 99–148; BP diastolic 53–88; PULSE 69–101; RESP 15–25; TEMP 36.6; O2SAT 93–98; BMI 32.7
--- NOTE | 2021-03-16 15:21 | CT_ITS ---
STUDY: CT HEAD STROKE PROTOCOL W/O CONTRAST INJECTION REASON FOR EXAM: Female, 75 years old. Stroke RADIATION DOSAGE (If Supplied By Facility): CTDIvol = ( 44.99 ) mGy, DLP = ( 796.11 ) mGycm TECHNIQUE: Transaxial CT imaging of the brain was performed without administration of intravenous contrast material. Individualized dose optimization techniques were used for this CT. COMPARISON: Comparison is made with prior examination dated 10/01/2016. FINDINGS: Normal soft tissue structures. Normal calvarium. There is mild cerebral atrophy with widening of the extra-axial spaces and ventricular dilatation. Normal white matter tracts of the cerebral hemispheres. Normal basal ganglia and thalami. Normal brainstem. Normal cerebellum. There is no intracranial hemorrhage. There are no findings of an acute ischemic infarction. Atherosclerotic calcification of the cavernous portions of the internal carotid arteries bilaterally. Normal visualized paranasal sinuses. CT/STROKE Brain/Head without Cont IMPRESSION: Chronic involutional changes of the brain. N.B. : The above Results were Read Back by Varun Philippe MD to Martín Stoll and understanding confirmed on 03/16/2021 15:35:19 (ET). Electronically Signed: Varun Philippe MD at 15:36 EDT , Service support ,
--- NOTE | 2021-03-16 15:22 | CT_ITS ---
STUDY: CTA HEAD AND NECK WITH CONTRAST REASON FOR EXAM: Female, 75 years old. CVA RADIATION DOSAGE (If Supplied By Facility): CTDIvol = ( 17.59 ) mGy, DLP = ( 651.88 ) mGycm TECHNIQUE: CT angiography was performed with a multi-detector CT scanner. Data acquisition was obtained from the skull base through the vertex following intravenous administration of IV 100mL Isovue-370. MIP images were reconstructed from the axial data set. Post-processing of the angiographic images was performed, with multiplanar reformation and 3D reconstruction. Individualized dose optimization techniques were used for this CT. COMPARISON: 10/01/2016 FINDINGS: Normal bilateral petrous carotid arteries. Normal right cavernous carotid artery with a normal supraclinoid bifurcation. Normal left cavernous carotid artery with a normal supraclinoid bifurcation. Normal right A1 segments of the anterior cerebral artery. Normal left A1 segments of the anterior cerebral artery. Normal intact anterior communicating artery (ACOM). Normal bilateral A2 segments of the anterior cerebral arteries. There is irregularity of the right M1 and M2 branches with minimal luminal narrowing, suggesting atherosclerotic plaque formation, without an occlusion. There is irregularity of the left M1 and M2 branches with minimal luminal narrowing, suggesting atherosclerotic plaque formation, without an occlusion. Normal right posterior communicating artery (PCOM). Normal left posterior communicating artery (PCOM). Normal bilateral vertebral arteries. Normal basilar artery with a normal basilar bifurcation. The visualized bilateral superior cerebellar (SCA) arteries are normal. Normal bilateral P1, P2 and visualized P3 segments of the posterior cerebral arteries. There is no demonstrated aneurysm of the minto of [place]. There is no demonstrated abnormality of the visualized brain. AORTIC ARCH: Normal visualized aortic arch. Normal origins of the brachiocephalic, left common carotid, and left subclavian arteries. RIGHT CAROTID ARTERIES: Normal right common carotid artery (CCA). Normal right common carotid bulb. There is mild atherosclerotic plaque formation of the origin of the right internal carotid artery with less than 50% cross sectional diameter stenosis. Normal visualized cervical portion of the right internal carotid artery. Normal origin of the right external carotid artery (ECA). LEFT CAROTID ARTERIES: Normal left common carotid artery (CCA). There is mild atherosclerotic plaque formation with minimal narrowing of the left carotid bulb. There is mild atherosclerotic plaque formation of the origin of the left internal carotid artery with less than 50% cross sectional diameter stenosis. Normal visualized cervical portion of the left internal carotid artery. Normal origin of the left external carotid artery (ECA). VERTEBRAL ARTERIES: Normal bilateral vertebral arteries. CT/STROKE CTA Head AND Neck W/Con IMPRESSION: No change. Unremarkable brain. No evidence of large vessel occlusion or hemodynamically significant stenosis. N.B. : The above Results were Read Back by Layton Napoles MD to Dr. Martín Stoll MD, and understanding confirmed on 03/16/2021 16:16:18 (ET). Electronically Signed: Layton Napoles MD at 16:19 EDT , Service support ,
--- NOTE | 2021-03-16 15:28 | EKG12_ITS ---
Test Reason : STROKE Blood Pressure : / mmHG Vent. Rate : 094 BPM Atrial Rate : 094 BPM P-R Int : 170 ms QRS Dur : 100 ms QT Int : 366 ms P-R-T Axes : -03 -41 121 degrees QTc Int : 457 ms Normal sinus rhythm Left axis deviation Left ventricular hypertrophy with repolarization abnormality Abnormal ECG Confirmed by MARLEN CASEY, RITO ([id number]), editor in chief newspaper GUIDO GOLD ([id number]) on 03/19/2021 12:49:43 PM Referred By: SAJAN Confirmed By:RITO GEE MD
[2021-03-16] MEDS: 0.9% Normal Saline 1,000 ML 999 ML IV (15:47)
--- NOTE | 2021-03-16 15:50 | CM.ED ---
SOCIAL WORK Stroke Alert Responded to Stroke Alert. No family present at this time. SW to remain available for needs. Michael Morrison, [employer]CH[employer]IC, [employer]
[2021-03-16 15:55] LABS: Absolute Lymphocyte Count 1.73 X10^3/uL (0.83-4.51); Absolute Neutrophil Count 5.7 X10^3/uL (2.0-7.7); Basophil# 0.03 X10^3/uL; Basophil% 0.4 % (0-1); Eosinophil# 0.06 X10^3/uL; Eosinophils% 0.7 % (0-5); Hematocrit 36.6 % (37-47); Hemoglobin 12.1 g/dL (12.0-15.0); Lymphocyte # 1.73 X10^3/ul (0.83-4.51); Lymphocyte % 20.4 % (19-41); Mean Corp Hgb Conc 33.1 g/dL (32-36); Mean Corpuscular Hgb 27.9 pg (27.0-32.0); Mean Corpuscular Volume 84.3 fL (81-99); Mean Platelet Vol. 10.8 fl (6.2-12.0); Monocyte# 0.95 X10^3/uL; Monocyte% 11.2 % (0-10); NRBC Flagged by Analyzer 0 % (0-5); Neutrophil % 66.9 % (47-70); Platelet Count 249 K/mm3 (150-450); RBC Distribution Width CV 12.2 % (11.6-14.6); RBC Distribution Width SD 37.2 fl (35.1-43.9); Red Blood Count 4.34 M/mm3 (4.2-5.4); White Blood Count 8.5 K/mm3 (4.4-11.0)
[2021-03-16 15:59] LABS: Prothrombin Time (Protime)PT. 12.4 SECONDS (11.7-14.9)
[2021-03-16 16:00] LABS: Anion Gap 8 (5-15); BUN 17 mg/dL (7-18); BUN/Creat Ratio 12.6 RATIO (10-20); Calcium,Total 8.4 mg/dL (8.5-10.1); Chloride 98 mmol/L (98-107); Creatinine, Serum 1.35 mg/dL (0.55-1.02); EST Glomerular Filtration Rate 41 mL/min (>60); Est Glom Filt Rate - Afr Amer 49 mL/min (>60); Estimated Creatinine Clearance 28.01 ml/min; Glucose 335 mg/dL (74-106); Partial Thromboplast Time 27.1 Seconds (24.1-36.2); Potassium 3.4 mmol/L (3.5-5.1); Sodium Level 133 mmol/L (136-145); Troponin-I HS 13 pg/mL (3.0-54.0)
--- NOTE | 2021-03-16 16:00 | RAD_ITS ---
STUDY: X-RAY CHEST REASON FOR EXAM: Female, 75 years old. Neuro deficit, acute, stroke suspected TECHNIQUE: Single AP portable view of the chest. COMPARISON: 12/16/2020. FINDINGS: The lungs are clear and expanded. There is no demonstrated pleural abnormality. Normal size heart. Normal mediastinum and isreal. Normal visualized pulmonary arteries. Normal visualized aortic arch and descending thoracic aorta. Normal visualized thoracic spine. Normal visualized ribs, clavicles, and shoulders. There is no demonstrated abnormality of the visualized soft tissue structures of the upper abdomen. RAD/Chest 1 View IMPRESSION: Normal x-ray examination of the chest. Electronically Signed: Layton Napoles MD at 16:20 EDT , Service support ,
[2021-03-16 16:36] LABS: Bedside Glucose 268 mg/dL (70-110)
--- NOTE | 2021-03-16 17:08 | MRI_ITS ---
STUDY: MRI BRAIN WITHOUT CONTRAST REASON FOR EXAM: Female, 75 years old. Blurred vision TECHNIQUE: Standardized multiplanar fat and water weighted pulse sequences were obtained. COMPARISON: Head CT dated March 16, 2021 FINDINGS: Normal size of the ventricles and extra-axial spaces for the patient''s age. Normal white matter tracts of the supratentorial brain. There is no evidence for recent intracranial ischemia or other cause of cytotoxic edema on diffusion weighted imaging (DWI). Normal T2* images of the brain without demonstrated susceptibility artifact. There is no demonstrated hemosiderin stain. Normal bilateral basal ganglia. Normal thalami. There is no extra-axial fluid accumulation. Normal flow voids within the major intracranial circulation suggesting patency by spin echo criteria. Normal sella turcica, pituitary gland, infundibular stalk, optic chiasm and hypothalamus. Normal tectal plate and pineal gland. Normal midbrain, maira and medulla. Normal cerebellum. Normal basal cisterns. Normal bilateral temporal bones. Normal bilateral internal auditory canals. No demonstrated orbital abnormality, within the constraints of a routine brain study. Normal visualized paranasal sinuses. Normal calvarium and skull base. Normal visualized soft tissue structures. Normal visualized upper cervical spine. MRI/Brain without Contrast IMPRESSION: Involutional changes of the brain, as described above. Electronically Signed: Tushar Belcher MD at 20:29 EDT , Service support ,
--- NOTE | 2021-03-16 17:17 | ED.RN ---
PER AQUILINO GARCIA TO DISCONTINUE NIH
--- NOTE | 2021-03-16 17:34 | ED.VIS.STROK ---
HPI History of Present Illness Chief Complaint: Neuro S/Sx Narrative Narrative: Patient presenting for evaluation secondary to hyperglycemia and blurry vision. Patient has a underlying history of diabetes, past history of stroke, coronary artery disease, hyperlipidemia, COPD. Patient states that she was dealing with high blood sugars today in the four hundreds. States it was associated with some blurred vision, EMS was contacted and when they arrived they thought that the patient potentially had some lateralizing symptoms so prehospital stroke team was activated. Patient states that she had a prior stroke with left-sided symptoms but does not have any sort of residual weakness from this. States that she has bilateral blurred vision. She states that she feels somewhat weak on the left side, she denies any sensory deficits. Review of systems otherwise negative [facility] Medical History (Updated 03/16/21 @ 21:[address] Martín Stoll MD) Arthritis Diabetes Heart disease HTN (hypertension) Kidney disease Kidney stone Ovarian cancer SOB (shortness of breath) Stroke Home Medications metformin 1,000 mg PO BIDCM 10/05/13 [History Last Taken 10/01/16 05:30] benazepril 20 mg PO DAILY #30 tab 10/02/16 [Rx Last Taken Unknown] pantoprazole 40 mg tablet,delayed release 40 mg PO PRN PRN 30 Days #30 09/29/17 [History Last Taken Unknown] aspirin 81 mg PO DAILY 07/25/19 [History Last Taken Unknown] albuterol sulfate 1 - 2 puff INHALATION Q4H PRN PRN 09/26/19 [History Last Taken Unknown] carvedilol 12.5 mg PO BID 09/26/19 [History Last Taken Unknown] ergocalciferol (vitamin D2) 50,000 unit PO QWEEK 09/26/19 [History Last Taken Unknown] hydroxyzine HCl 1 - 2 tab PO QHS PRN 09/26/19 [History Last Taken Unknown] Tresiba FlexTouch U-100 42 unit SUBCUT BREAKFAST 12/16/20 [History Last Taken Unknown] acetaminophen 1,000 mg PO Q6H PRN 12/16/20 [History Last Taken Unknown] insulin aspart U-100 [Novolog Flexpen U-100 Insulin] See Protocol SUBCUT BREAKFAST 12/16/20 [History Last Taken Unknown] insulin aspart U-100 [Novolog Flexpen U-100 Insulin] See Protocol SUBCUT DINNER 12/16/20 [History Last Taken Unknown] insulin aspart U-100 [Novolog Flexpen U-100 Insulin] See Protocol SUBCUT LUNCH 12/16/20 [History Last Taken Unknown] furosemide 20 mg PO BID PRN #0 tab 12/17/20 [Rx Last Taken 10/01/16] Allergy/AdvReac Type Severity Reaction Status Date / Time latex Allergy Rash Verified 03/16/21 15:53 Penicillins Allergy Hives Verified 03/16/21 15:53 Family History Other Cancer Surgical History H/O heart surgery H/O knee surgery History of cholecystectomy Social History Smoking Status: Never smoker alcohol intake: never ROS ROS ED Constitutional Constitutional ED: Denies chills or fever(s) Eyes Eyes: Reports change in vision ENT ENT ED: Denies rhinorrhea Cardiovascular Cardiovascular: Denies chest pain Respiratory/Chest Respiratory/Chest: Denies cough or dyspnea Gastrointestinal Gastrointestinal: Denies abdominal pain, diarrhea, nausea or vomiting Genitourinary Genitourinary ED: Denies dysuria or hematuria Musculoskeletal Musculoskeletal: Denies back pain Integumentary Denies rash Neurologic Neurologic: Reports weakness Psychiatric Psychiatric: Denies depression Endocrine Endocrinology: Denies fatigue Allergic/Immunologic Allergic/Immunologic ED: Denies urticaria EXAM Physical Exam Const Vital Signs: 03/16/21 15:25 03/16/21 15:36 03/16/21 15:48 Temperature 97.9 F Temperature Source Temporal Pulse Rate 100 98 98 Respiratory Rate 20 H 17 23 H Blood Pressure 148/86 H 148/86 H 115/56 L Blood Pressure Mean 106 106 75 Pulse Ox 98 98 93 Oxygen Delivery Method Room Air Room Air Room Air 03/16/21 16:24 03/16/21 16:31 03/16/21 17:03 Temperature Temperature Source Pulse Rate 90 90 101 H Respiratory Rate 16 16 16 Blood Pressure 99/57 L 115/53 L 106/56 L Blood Pressure Mean 71 73 72 Pulse Ox 98 98 97 Oxygen Delivery Method Room Air Room Air Room Air 03/16/21 18:08 03/16/21 20:41 Temperature Temperature Source Pulse Rate 93 81 Respiratory Rate 17 15 Blood Pressure 103/55 L 138/79 H Blood Pressure Mean 71 98 Pulse Ox 94 98 Oxygen Delivery Method Room Air Room Air Positive well nourished and well developed Constitutional Narrative: Anxious appearing female no acute distress General Appearance ED: well developed and NAD HEENT Reports moist mucous membranes Negative for trauma or tenderness Eyes EOMs intact bilaterally Neck no lymphadenopathy, supple and no JVD Chest Wall inspection of chest normal Resp normal respiratory effort and clear to auscultation bilaterally Cardio regular rate, regular rhythm, no murmurs and peripheral pulses 2+ throughout GI normal to inspection, nondistended, normoactive bowel sounds, non-tender and no masses Palpation: soft Back/Spine normal to inspection Extremity normal to inspection General Extremety ED: Negative for tenderness Neuro oriented x3 and no sensory deficits noted Neuro Narrative: NIH stroke scale is 0. Patient complains of blurred vision throughout her visual granda, but there is no evidence of quadrantanopsia or hemianopsia. EOMI. Sensorium / Orientation: alert Motor Exam: strength 5/5 throughout Psych mental status grossly normal Skin no rashes or lesions noted STROKE Vital Signs/Narrative: Vital Signs Pulse Resp BP Pulse Ox 03/16/21 20:41 81 15 138/79 H 98 03/16/21 18:08 93 17 103/55 L 94 MDM MDM MDM Narrative Medical decision making narrative: Patient presented as a prehospital stroke team. I evaluated the patient immediately upon arrival, she was protecting her airway she was taken straight to CT scan. She was reevaluated upon arrival back into the emergency department. Patient's NIH stroke scale is 0, her initial head CT was negative I do not feel that she is a candidate for TPA. Teleneurology agrees with this. CT angiograms of the neck were found to be unremarkable. CBC was unremarkable. Chemistry does demonstrate the patient to have hyperglycemia with glucose of 335 patient was given a liter of saline and 10 units of subcutaneous insulin. Chest x-ray by my personal review was found to be negative, radiology agrees. Due to the hospital being close to at capacity, I discussed patient's case with the hospitalist and he requested that if the patient could receive a MRI from the emergency department that was negative she could potentially be discharged with outpatient follow-up. MRI was performed, patient did require some anxiolysis due to complaints of claustrophobia, she was given Ativan prior to the procedure. MRI per radiology does not demonstrate any evidence of acute stroke. Patient at this point has some blurry vision which she states is improving, no other stroke symptoms, and a negative MRI, negative angiograms of the head neck, no pathologic elevation of cardiac troponin and an otherwise negative work-up. Patient's glucose was noted to be improving with intervention. I do not believe that she requires further observation or admission. Patient was discharged in improved condition. Lab Data Labs: Laboratory Results - last 24 hr 03/16/21 03/16/21 03/16/21 15:37 15:37 15:37 WBC 8.5 RBC 4.34 Hgb 12.1 Hct 36.6 L MCV 84.3 MCH 27.9 MCHC 33.1 RDW Std Deviation 37.2 RDW Coeff of Scotty 12.2 Plt Count 249 MPV 10.8 Immature Gran % (Auto) 0.400 Neut % (Auto) 66.9 Lymph % (Auto) 20.4 Rankin % (Auto) 11.2 H Eos % (Auto) 0.7 Baso % (Auto) 0.4 Absolute Neuts (auto) 5.7 Absolute Lymphs (auto) 1.73 Nucleated RBC % 0 PT 12.4 INR 1.0 APTT 27.1 Sodium 133 L Potassium 3.4 L Chloride 98 Carbon Dioxide 27.0 Anion Gap 8 BUN 17 Creatinine 1.35 H Estim Creat Clear Calc 28.01 Est GFR (MDRD) Af Amer 49 L Est GFR (MDRD) Non-Af 41 L BUN/Creatinine Ratio 12.6 Glucose 335 H Calcium 8.4 L Troponin I High Sens 13 Acetone Level POC Glucose 03/16/21 03/16/21 03/16/21 15:37 16:31 18:36 WBC RBC Hgb Hct MCV MCH MCHC RDW Std Deviation RDW Coeff of Scotty Plt Count MPV Immature Gran % (Auto) Neut % (Auto) Lymph % (Auto) Rankin % (Auto) Eos % (Auto) Baso % (Auto) Absolute Neuts (auto) Absolute Lymphs (auto) Nucleated RBC % PT INR APTT Sodium Potassium Chloride Carbon Dioxide Anion Gap BUN Creatinine Estim Creat Clear Calc Est GFR (MDRD) Af Amer Est GFR (MDRD) Non-Af BUN/Creatinine Ratio Glucose Calcium Troponin I High Sens Acetone Level NEGATIVE POC Glucose 268 H 289 H Radiography Diagnostic Testing: Radiology Impression Brain CT 03/16/21 15:21 IMPRESSION: Chronic involutional changes of the brain. N.B. : The above Results were Read Back by Varun Philippe MD to Martín Stoll and understanding confirmed on 03/16/2021 15:35:19 (ET). Electronically Signed: Varun Philippe MD at 15:36 EDT , Service support , Head/Neck CTA 03/16/21 15:22 IMPRESSION: No change. Unremarkable brain. No evidence of large vessel occlusion or hemodynamically significant stenosis. N.B. : The above Results were Read Back by Layton Napoles MD to Dr. Martín Stoll MD, and understanding confirmed on 03/16/2021 16:16:18 (ET). Electronically Signed: Layton Napoles MD at 16:19 EDT , Service support , ADDENDUM: 03/16/21 1626 IMPRESSION: No change. Unremarkable brain. No evidence of large vessel occlusion or hemodynamically significant stenosis. N.B. : The above Results were Read Back by Layton Napoles MD to Dr. Martín Stoll MD, and understanding confirmed on 03/16/2021 16:16:18 (ET). Electronically Signed: Layton Napoles MD at 16:19 EDT , Service support , Chest X-Ray 03/16/21 16:00 IMPRESSION: Normal x-ray examination of the chest. Electronically Signed: Layton Napoles MD at 16:20 EDT , Service support , Brain MRI 03/16/21 17:08 IMPRESSION: Involutional changes of the brain, as described above. Electronically Signed: Tushar Belcher MD at 20:29 EDT , Service support , EKG Initial EKG: Attestation: I personally reviewed and interpreted this EKG as follows: (Sinus rhythm at 94 with LVH and left axis deviation, no evidence of acute ischemic changes.) Critical Care Time Critical care time (excluding procedures): 30-74 minutes (50), Discussing w/Patient &/or Family/Manager Travel, Discussing w/Consultants and Performing Direct Patient Care at Bedside Discharge Plan Triage Chief Complaint: Neuro S/Sx ED Provider: Martín Stoll Dx/Rx/DC Orders Clinical Impression: Acute hyperglycemia, Blurred vision Instructions: ED Diabetic Hyperglycemia Prescriptions: No Action pantoprazole 40 mg tablet,delayed release (DR/EC) 40 mg PO PRN PRN (Reason: REFLUX) 30 Days Qty: 30 RF: 0 metformin 500 MG tablet 1,000 mg PO BIDCM RF: 0 Hold Instructions: Resume on 12/19/20. benazepril 20 MG tablet 20 mg PO DAILY Qty: 30 RF: 0 aspirin 81 MG tablet,chewable 81 mg PO DAILY RF: 0 carvedilol 12.5 MG tablet 12.5 mg PO BID RF: 0 hydroxyzine HCl 25 MG tablet 1 - 2 tab PO QHS PRN (Reason: Itching) RF: 0 ergocalciferol (vitamin D2) 50,000 UNIT capsule 50,000 unit PO QWEEK RF: 0 albuterol sulfate 1 INHALER inhaler 1 - 2 puff inhalation Q4H PRN PRN (Reason: Sob &/Or Wheezing) RF: 0 insulin aspart U-100 [Novolog Flexpen U-100 Insulin] 100 unit/mL (3 mL) insulin pen See Protocol unit subcut BREAKFAST RF: 0 Tresiba FlexTouch U-100 100 unit/mL (3 mL) insulin pen 42 unit SUBCUT BREAKFAST RF: 0 acetaminophen 500 mg Capsule 1,000 mg PO Q6H PRN (Reason: Pain) RF: 0 insulin aspart U-100 [Novolog Flexpen U-100 Insulin] 100 unit/mL (3 mL) insulin pen See Protocol unit SUBCUT LUNCH RF: 0 insulin aspart U-100 [Novolog Flexpen U-100 Insulin] 100 unit/mL (3 mL) insulin pen See Protocol unit SUBCUT DINNER RF: 0 furosemide 20 MG tablet 20 mg PO BID PRN (Reason: weight gain) Qty: 0 RF: 0 Primary Care Provider: Martín Garcia Referrals: Martín Garcia DO [Primary Care Provider] - 3-5 Days Disposition Disposition: Home, Self Care
[2021-03-16] MEDS: Insulin Lispro 100 UNIT/ML INSULN.PEN 10 UNIT SC (18:14)
[2021-03-16] MEDS: LORazepam 2 MG/ML Syringe IV (18:33)
[2021-03-16 18:41] LABS: Bedside Glucose 289 mg/dL (70-110)
[2021-03-17 00:52] LABS: Bedside Glucose 279 mg/dL (70-110)
== END 2021-03-16 21:31 | disposition home or self-care (01) ==
PROVIDERS: Emergency Provider Emergency Medicine; PCP Student in an Organized Health Care Education/Training Program
DX: E11.65 Type 2 diabetes mellitus with hyperglycemia (principal); H53.8 Other visual disturbances; R29.700 NIHSS score 0; F40.240 Claustrophobia; I25.10 Atherosclerotic heart disease of native coronary artery without angina pectoris; J44.9 Chronic obstructive pulmonary disease, unspecified; I10 Essential (primary) hypertension; E78.5 Hyperlipidemia, unspecified; M19.90 Unspecified osteoarthritis, unspecified site; Z79.82 Long term (current) use of aspirin; Z79.4 Long term (current) use of insulin; Z79.899 Other long term (current) drug therapy; Z86.73 Personal history of transient ischemic attack (TIA), and cerebral infarction without residual deficits
CPT/HCPCS: 70450; 70496; 70498; 70551; 71045; 80048; 82009; 82962; 84484; 85025; 85610; 85730; 93005; 96361; 96374; 99285; J7030; Q9967; A4216

== ENCOUNTER 2021-04-05 09:45 | Inpatient (IN) | payer MEDICARE, OTHER, SELFPAY ==
[2021-04-05] VITALS (13 sets, daily range): BP systolic 118–169; BP diastolic 51–116; PULSE 81–111; RESP 12–19; TEMP 35.8–37.1; O2SAT 96–98; BMI 31.7
--- NOTE | 2021-04-05 10:02 | EKG12_ITS ---
Test Reason : GENERAL Blood Pressure : / mmHG Vent. Rate : 111 BPM Atrial Rate : 111 BPM P-R Int : 160 ms QRS Dur : 104 ms QT Int : 352 ms P-R-T Axes : 037 -44 119 degrees QTc Int : 478 ms Poor data quality, interpretation may be adversely affected Sinus tachycardia Left axis deviation Left ventricular hypertrophy Poor R wave progression Nonspecific ST and T wave abnormality Abnormal ECG Confirmed by TONIA CASEY, REFUGIO ([id number]), purchasing expeditor [employer]UIDO GOLD ([id number]) on 04/06/2021 1:08:15 PM Referred By: JUANCARLOS/AARON Confirmed By:REFUGIO RANDALL MD
--- NOTE | 2021-04-05 10:07 | EDS_ITS ---
HPI History of Present Illness Chief Complaint: General Illness Informant: patient Onset/Context/Timing Onset: Yesterday Current Severity: Moderate Maximum Severity: Moderate Narrative Narrative: Patient presents with chief complaint of I just do not feel good. When asked further what she means she states that she has pain from her upper abdomen near where her gallbladder was up through the center of her chest. She does report some nausea. She has a history of diabetes but states she has not been checking her blood sugars. She denies fever or chills. She does report mild cough. [facility] Medical History (Updated 04/05/21 @ 13:[address] Gauri Farnsworth MD) Arthritis Diabetes Heart disease HTN (hypertension) Kidney disease Kidney stone Ovarian cancer SOB (shortness of breath) Stroke Home Medications metformin 1,000 mg PO BIDCM 10/05/13 [History Last Taken 10/01/16 05:30] benazepril 20 mg PO DAILY #30 tab 10/02/16 [Rx Last Taken Unknown] pantoprazole 40 mg tablet,delayed release 40 mg PO PRN PRN 30 Days #30 09/29/17 [History Last Taken Unknown] aspirin 81 mg PO DAILY 07/25/19 [History Last Taken Unknown] albuterol sulfate 1 - 2 puff INHALATION Q4H PRN PRN 09/26/19 [History Last Taken Unknown] carvedilol 12.5 mg PO BID 09/26/19 [History Last Taken Unknown] ergocalciferol (vitamin D2) 50,000 unit PO QWEEK 09/26/19 [History Last Taken Unknown] hydroxyzine HCl 1 - 2 tab PO QHS PRN 09/26/19 [History Last Taken Unknown] Tresiba FlexTouch U-100 42 unit SUBCUT BREAKFAST 12/16/20 [History Last Taken Unknown] acetaminophen 1,000 mg PO Q6H PRN 12/16/20 [History Last Taken Unknown] insulin aspart U-100 [Novolog Flexpen U-100 Insulin] See Protocol SUBCUT BREAKFAST 12/16/20 [History Last Taken Unknown] insulin aspart U-100 [Novolog Flexpen U-100 Insulin] See Protocol SUBCUT DINNER 12/16/20 [History Last Taken Unknown] insulin aspart U-100 [Novolog Flexpen U-100 Insulin] See Protocol SUBCUT LUNCH 12/16/20 [History Last Taken Unknown] furosemide 20 mg PO BID PRN #0 tab 12/17/20 [Rx Last Taken 10/01/16] Allergy/AdvReac Type Severity Reaction Status Date / Time latex Allergy Rash Verified 04/05/21 09:46 Penicillins Allergy Hives Verified 04/05/21 09:46 Family History Other Cancer Surgical History H/O heart surgery H/O knee surgery History of cholecystectomy Social History Smoking Status: Never smoker alcohol intake: never ROS ROS ED Constitutional Constitutional ED: Denies chills or fever(s) Eyes Eyes: Denies change in vision ENT ENT ED: Denies sore throat Cardiovascular Cardiovascular: Reports chest pain Respiratory/Chest Respiratory/Chest: Reports cough and dyspnea Gastrointestinal Gastrointestinal: Reports abdominal pain and nausea; Denies diarrhea Genitourinary Genitourinary ED: Reports dysuria Musculoskeletal Musculoskeletal: Denies back pain Integumentary Denies rash Neurologic Neurologic: Denies headache(s) or weakness Allergic/Immunologic Allergic/Immunologic ED: Denies urticaria EXAM Physical Exam Const Vital Signs: 04/05/21 09:46 04/05/21 09:58 04/05/21 10:32 Temperature 97.8 F 97.8 F Temperature Source Temporal Temporal Pulse Rate 111 H 111 H Respiratory Rate 19 H 19 H Respiratory Effort Normal Non-Labored Respiratory Pattern Normal Blood Pressure 155/93 H 155/93 H Blood Pressure Mean 113 113 Pulse Ox 98 98 Oxygen Delivery Method Room Air Room Air 04/05/21 10:53 04/05/21 11:45 04/05/21 11:46 Temperature 97.6 F L 96.4 F L 96.4 F L Temperature Source Oral Temporal Temporal Pulse Rate 102 H 109 H 109 H Respiratory Rate 15 17 17 Respiratory Effort Respiratory Pattern Blood Pressure 162/85 H 131/78 H 131/78 H Blood Pressure Mean 110 95 95 Pulse Ox 98 98 98 Oxygen Delivery Method Room Air Room Air Room Air 04/05/21 12:36 04/05/21 13:05 Temperature 98.7 F 97.3 F L Temperature Source Temporal Temporal Pulse Rate 94 86 Respiratory Rate 16 19 H Respiratory Effort Respiratory Pattern Blood Pressure 169/116 H 139/66 H Blood Pressure Mean 133 90 Pulse Ox 97 96 Oxygen Delivery Method Room Air Room Air Positive well nourished and well developed General Appearance ED: well developed HEENT Reports normocephalic and head/scalp atraumatic Eyes PERRL and EOMs intact bilaterally Neck supple Chest Wall inspection of chest normal and palpation of chest normal Resp normal respiratory effort and clear to auscultation bilaterally Cardio regular rate and regular rhythm GI normal to inspection, nondistended, normoactive bowel sounds Palpation: soft and tender epigastric Extremity normal to inspection Neuro oriented x3 Neuro Narrative: No focal neurologic deficits. Sensorium / Orientation: alert Psych mental status grossly normal Skin no rashes or lesions noted MDM MDM MDM Narrative Medical decision making narrative: Lab work, Covid swab, EKG, acute abdominal series ordered. Patient was given IV fluids. Lab Data Attestation: I reviewed the patient's lab results. Labs: Laboratory Results - last 24 hr 04/05/21 04/05/21 04/05/21 10:29 10:29 10:29 WBC 9.6 RBC 5.48 H Hgb 15.3 H Hct 46.7 MCV 85.2 MCH 27.9 MCHC 32.8 RDW Std Deviation 39.3 RDW Coeff of Scotty 12.8 Plt Count 349 MPV 10.4 Immature Gran % (Auto) 0.600 Neut % (Auto) 83.8 H Lymph % (Auto) 10.3 L Pett[place] % (Auto) 4.7 Eos % (Auto) 0.1 Baso % (Auto) 0.5 Absolute Neuts (auto) 8.1 H Absolute Lymphs (auto) 0.99 Nucleated RBC % 0 Sodium 132 L Potassium 4.2 Chloride 98 Carbon Dioxide 13.0 L Anion Gap 21 H BUN 16 Creatinine 1.33 H Estim Creat Clear Calc 28.00 Est GFR (MDRD) Af Amer 50 L Est GFR (MDRD) Non-Af 41 L BUN/Creatinine Ratio 12.0 Glucose 472 H* Calcium 9.3 Total Bilirubin 0.70 Direct Bilirubin 0.18 AST 19 ALT 29 Alkaline Phosphatase 174 H Troponin I High Sens 17 Total Protein 9.0 H Albumin 3.5 Globulin 5.5 H Lipase 111 Urine Color Urine Clarity Urine pH Ur Specific [place] Urine Protein Urine Glucose (UA) Urine Ketones Urine Occult Blood Urine Nitrite Urine Bilirubin Urine Urobilinogen Ur Leukocyte Esterase Urine RBC Urine WBC Ur Squamous Epith Cells Urine Bacteria Urine Mucus Acetone Level LARGE H 04/05/21 11:41 WBC RBC Hgb Hct MCV MCH MCHC RDW Std Deviation RDW Coeff of Scotty Plt Count MPV Immature Gran % (Auto) Neut % (Auto) Lymph % (Auto) [place] % (Auto) Eos % (Auto) Baso % (Auto) Absolute Neuts (auto) Absolute Lymphs (auto) Nucleated RBC % Sodium Potassium Chloride Carbon Dioxide Anion Gap BUN Creatinine Estim Creat Clear Calc Est GFR (MDRD) Af Amer Est GFR (MDRD) Non-Af BUN/Creatinine Ratio Glucose Calcium Total Bilirubin Direct Bilirubin AST ALT Alkaline Phosphatase Troponin I High Sens Total Protein Albumin Globulin Lipase Urine Color Yellow Urine Clarity Clear Urine pH 5.0 Ur Specific [place] 1.020 Urine Protein 100 H Urine Glucose (UA) 1000 H Urine Ketones 150 A* Urine Occult Blood 25 H Urine Nitrite Negative Urine Bilirubin Negative Urine Urobilinogen Normal Ur Leukocyte Esterase Negative Urine RBC 0 SEEN Urine WBC 0-5 SEEN Ur Squamous Epith Cells 0-5 SEEN Urine Bacteria 0 SEEN Urine Mucus 0 SEEN Acetone Level Radiography Diagnostic Testing: Radiology Impression Acute Abdomen Series 04/05/21 10:50 IMPRESSION: Moderate amount of fecal material is seen in the colon. Electronically Signed: Varun Philippe MD at 11:10 EDT , Service support , EKG Initial EKG: Attestation: I personally reviewed and interpreted this EKG as follows: Interpretation: Sinus Tachycardia (Sinus tachycardia at 111. No acute ischemia.) Treatment and Re-Evaluation Comments:: Acute abdominal series per my interpretation reveals no obvious acute abnormalities. Chronic changes noted. Lab work significant for a blood sugar of 472 with an anion gap of 21. Serum acetone is added and does reveal large serum acetone. Patient has been given IV fluids. Insulin drip will be started and patient will be discussed with hospitalist. Discharge Plan Triage Chief Complaint: General Illness ED Provider: Gauri Farnsworth Dx/Rx/DC Orders Clinical Impression: DKA (diabetic ketoacidosis) Prescriptions: No Action pantoprazole 40 mg tablet,delayed release (DR/EC) 40 mg PO PRN PRN (Reason: REFLUX) 30 Days Qty: 30 RF: 0 metformin 500 MG tablet 1,000 mg PO BIDCM RF: 0 Hold Instructions: Resume on 12/19/20. benazepril 20 MG tablet 20 mg PO DAILY Qty: 30 RF: 0 aspirin 81 MG tablet,chewable 81 mg PO DAILY RF: 0 carvedilol 12.5 MG tablet 12.5 mg PO BID RF: 0 hydroxyzine HCl 25 MG tablet 1 - 2 tab PO QHS PRN (Reason: Itching) RF: 0 ergocalciferol (vitamin D2) 50,000 UNIT capsule 50,000 unit PO QWEEK RF: 0 albuterol sulfate 1 INHALER inhaler 1 - 2 puff inhalation Q4H PRN PRN (Reason: Sob &/Or Wheezing) RF: 0 insulin aspart U-100 [Novolog Flexpen U-100 Insulin] 100 unit/mL (3 mL) insulin pen See Protocol unit subcut BREAKFAST RF: 0 Tresiba FlexTouch U-100 100 unit/mL (3 mL) insulin pen 42 unit SUBCUT BREAKFAST RF: 0 acetaminophen 500 mg Capsule 1,000 mg PO Q6H PRN (Reason: Pain) RF: 0 insulin aspart U-100 [Novolog Flexpen U-100 Insulin] 100 unit/mL (3 mL) insulin pen See Protocol unit SUBCUT LUNCH RF: 0 insulin aspart U-100 [Novolog Flexpen U-100 Insulin] 100 unit/mL (3 mL) insulin pen See Protocol unit SUBCUT DINNER RF: 0 furosemide 20 MG tablet 20 mg PO BID PRN (Reason: weight gain) Qty: 0 RF: 0 Primary Care Provider: Martín Garcia Referrals: Martín Garcia DO [Primary Care Provider] - Disposition Disposition: Acute Care Hospital [facility]
[2021-04-05] MEDS: 0.9% Normal Saline 1,000 ML 150 ML IV ×2 (10:31→20:10)
[2021-04-05 10:44] LABS: Absolute Lymphocyte Count 0.99 X10^3/uL (0.83-4.51); Absolute Neutrophil Count 8.1 X10^3/uL (2.0-7.7); Basophil# 0.05 X10^3/uL; Basophil% 0.5 % (0-1); Eosinophil# 0.01 X10^3/uL; Eosinophils% 0.1 % (0-5); Hematocrit 46.7 % (37-47); Hemoglobin 15.3 g/dL (12.0-15.0); Lymphocyte # 0.99 X10^3/ul (0.83-4.51); Lymphocyte % 10.3 % (19-41); Mean Corp Hgb Conc 32.8 g/dL (32-36); Mean Corpuscular Hgb 27.9 pg (27.0-32.0); Mean Corpuscular Volume 85.2 fL (81-99); Mean Platelet Vol. 10.4 fl (6.2-12.0); Monocyte# 0.45 X10^3/uL; Monocyte% 4.7 % (0-10); NRBC Flagged by Analyzer 0 % (0-5); Neutrophil # 8.06 X10^3/uL (2.7-7.7); Neutrophil % 83.8 % (47-70); Platelet Count 349 K/mm3 (150-450); RBC Distribution Width CV 12.8 % (11.6-14.6); RBC Distribution Width SD 39.3 fl (35.1-43.9); Red Blood Count 5.48 M/mm3 (4.2-5.4); White Blood Count 9.6 K/mm3 (4.4-11.0)
--- NOTE | 2021-04-05 10:50 | RAD_ITS ---
STUDY: X-RAY - ACUTE ABDOMINAL SERIES REASON FOR EXAM: Female, 76 years old. Abd pain TECHNIQUE: Single view of the chest. Supine, and erect view(s) of the abdomen were obtained. COMPARISON: Comparison is made with prior examination dated 03/16/2021. FINDINGS: EKG electrodes are seen. The lungs are clear and expanded. Normal size heart. Normal mediastinum and isreal. Normal visualized pulmonary arteries. There is atherosclerotic tortuosity of the aortic arch and descending thoracic aorta. There is a moderate amount of colonic fecal material. The soft tissue structures of the abdomen and pelvis are unremarkable. The patient is status post cholecystectomy. There are diffuse degenerative changes of the visualized lumbar spine. RAD/Acute Abdomen Inc Chest IMPRESSION: Moderate amount of fecal material is seen in the colon. Electronically Signed: Varun Philippe MD at 11:10 EDT , Service support ,
[2021-04-05 11:09] LABS: AST(SGOT) 19 U/L (15-37); Alanine Aminotransfer ALT/SGPT 29 U/L (13-56); Albumin, Serum 3.5 g/dL (3.2-5.0); Alkaline Phosphatase 174 U/L (45-117); Anion Gap 21 (5-15); BUN 16 mg/dL (7-18); Bilirubin, Direct 0.18 mg/dL (0.00-0.30); Calcium,Total 9.3 mg/dL (8.5-10.1); Chloride 98 mmol/L (98-107); Creatinine, Serum 1.33 mg/dL (0.55-1.02); EST Glomerular Filtration Rate 41 mL/min (>60); Est Glom Filt Rate - Afr Amer 50 mL/min (>60); Globulin 5.5 g/dL (2.2-4.2); Glucose 472 mg/dL (74-106); Lipase 111 U/L (73-393); Potassium 4.2 mmol/L (3.5-5.1); Sodium Level 132 mmol/L (136-145); Troponin-I HS 17 pg/mL (3.0-54.0)
[2021-04-05 11:46] LABS: Bacteria 0 SEEN /hpf (None Seen); Mucous, Urine 0 SEEN /hpf (<or=2+); Red Blood Cells-Urine 0 SEEN /hpf (0-5)
[2021-04-05 11:56] LABS: Color, Urine Yellow (Yellow); Glucose, Dipstick 1000 mg/dl (Normal); Leukocyte Esterase-Dipstick Negative /ul (Negative); Nitrite-Dipstick Negative (Negative); Occult Blood-Urine 25 /ul (Negative); Protein-Dipstick 100 mg/dl (Negative); Urine Bilirubin Dipstick Negative (Negative); Urine Clarity Clear (Clear); Urine Urobilinogen Normal (Normal)
[2021-04-05 11:58] LABS: Ketone-Dipstick 150 mg/dl (Negative)
[2021-04-05 12:03] LABS: Squamous Epithelial Cells - UA 0-5 SEEN /hpf (5-10); White Blood Cells 0-5 SEEN /hpf (0-5)
[2021-04-05] MEDS: 0.9% Normal Saline 1,000 ML 999 ML IV (13:04)
--- NOTE | 2021-04-05 14:26 | PCM.HP.STD ---
HPI - General HPI Narrative MARINA DALTON, is a 76 F with type 2 diabetes and who was recently a few months ago and as such has not been unable to afford her insulin as she informs me. She presents with several days history of feeling unwell and crappy. Noted to have marked elevated blood glucose in the high 400s and with ketosis/ketonuria and acidosis. Patient complains of a headache. Denies any abdominal pain but does have some nausea. Denies any chest pain or shortness of breath. Denies any dysuria frequency. Denies any diarrhea. Of note is that patient is really a poor historian. [facility] Medical History (Updated 04/05/21 @ 14:[address] Alaina Sin MD) Arthritis Diabetes Heart disease HTN (hypertension) Kidney disease Kidney stone Ovarian cancer SOB (shortness of breath) Stroke Home Medications metformin 1,000 mg PO BIDCM 10/05/13 [History Last Taken 10/01/16 05:30] benazepril 20 mg PO DAILY #30 tab 10/02/16 [Rx Last Taken Unknown] pantoprazole 40 mg tablet,delayed release 40 mg PO PRN PRN 30 Days #30 09/29/17 [History Last Taken Unknown] aspirin 81 mg PO DAILY 07/25/19 [History Last Taken Unknown] albuterol sulfate 1 - 2 puff INHALATION Q4H PRN PRN 09/26/19 [History Last Taken Unknown] carvedilol 12.5 mg PO BID 09/26/19 [History Last Taken Unknown] ergocalciferol (vitamin D2) 50,000 unit PO QWEEK 09/26/19 [History Last Taken Unknown] hydroxyzine HCl 1 - 2 tab PO QHS PRN 09/26/19 [History Last Taken Unknown] Tresiba FlexTouch U-100 42 unit SUBCUT BREAKFAST 12/16/20 [History Last Taken Unknown] acetaminophen 1,000 mg PO Q6H PRN 12/16/20 [History Last Taken Unknown] insulin aspart U-100 [Novolog Flexpen U-100 Insulin] See Protocol SUBCUT BREAKFAST 12/16/20 [History Last Taken Unknown] insulin aspart U-100 [Novolog Flexpen U-100 Insulin] See Protocol SUBCUT DINNER 12/16/20 [History Last Taken Unknown] insulin aspart U-100 [Novolog Flexpen U-100 Insulin] See Protocol SUBCUT LUNCH 12/16/20 [History Last Taken Unknown] furosemide 20 mg PO BID PRN #0 tab 12/17/20 [Rx Last Taken 10/01/16] Allergy/AdvReac Type Severity Reaction Status Date / Time latex Allergy Rash Verified 04/05/21 09:46 Penicillins Allergy Hives Verified 04/05/21 09:46 Family History Other Cancer Surgical History H/O heart surgery H/O knee surgery History of cholecystectomy Social History Smoking Status: Never smoker alcohol intake: never ROS ROS Narrative Denies any chest pain or shortness of breath. All other systems reviewed and essentially negative. Vital Signs Vital Signs Vital Signs: 04/05/21 09:46 04/05/21 09:58 04/05/21 10:32 Temperature 36.6 C 36.6 C Temperature Source Temporal Temporal Pulse Rate 111 H 111 H Respiratory Rate 19 H 19 H Respiratory Effort Normal Non-Labored Respiratory Pattern Normal Blood Pressure 155/93 H 155/93 H Blood Pressure Mean 113 113 Pulse Ox 98 98 Oxygen Delivery Method Room Air Room Air 04/05/21 10:53 04/05/21 11:45 04/05/21 11:46 Temperature 36.4 C L 35.8 C L 35.8 C L Temperature Source Oral Temporal Temporal Pulse Rate 102 H 109 H 109 H Respiratory Rate 15 17 17 Respiratory Effort Respiratory Pattern Blood Pressure 162/85 H 131/78 H 131/78 H Blood Pressure Mean 110 95 95 Pulse Ox 98 98 98 Oxygen Delivery Method Room Air Room Air Room Air 04/05/21 12:36 04/05/21 13:05 Temperature 37.1 C 36.3 C L Temperature Source Temporal Temporal Pulse Rate 94 86 Respiratory Rate 16 19 H Respiratory Effort Respiratory Pattern Blood Pressure 169/116 H 139/66 H Blood Pressure Mean 133 90 Pulse Ox 97 96 Oxygen Delivery Method Room Air Room Air Weight Weight: 76.204 kg Body Mass Index (BMI) 31.7 Physical Exam Narrative General. Elderly man, acutely ill-appearing, restless, in some distress, teary and emotionally labile HEENT. Oral mucosa is quite dry. Head is normocephalic. Extraocular movements normal. Neck. Neck is supple Heart. Heart sounds 1 and 2 heard without any murmurs. Lungs. Clear to auscultation. Abdomen. Obese. Soft moves with respiration. Nontender. No organomegaly no palpable masses. Bladder appears full though. 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 Conscious and alert. Oriented x3. Cranial nerves II through XII grossly intact. Power appears to be 5 out of 5 in all extremities. Extremities. No pedal edema. Skin. Skin is dry. Slight loss of turgor. Results Lab / Micro Data Result Diagrams: 04/05/21 10:29 04/05/21 10:29 Labs: Laboratory Results - last 24 hr 04/05/21 10:29: WBC 9.6, RBC 5.48 H, Hgb 15.3 H, Hct 46.7, MCV 85.2, MCH 27.9, MCHC 32.8, RDW Std Deviation 39.3, RDW Coeff of Scotty 12.8, Plt Count 349, MPV 10.4, Immature Gran % (Auto) 0.600, Neut % (Auto) 83.8 H, Lymph % (Auto) 10.3 L, [place] % (Auto) 4.7, Eos % (Auto) 0.1, Baso % (Auto) 0.5, Absolute Neuts (auto) 8.1 H, Absolute Lymphs (auto) 0.99, Nucleated RBC % 0 04/05/21 10:29: Sodium 132 L, Potassium 4.2, Chloride 98, Carbon Dioxide 13.0 L, Anion Gap 21 H, BUN 16, Creatinine 1.33 H, Estim Creat Clear Calc 28.00, Est GFR (MDRD) Af Amer 50 L, Est GFR (MDRD) Non-Af 41 L, BUN/Creatinine Ratio 12.0, Glucose 472 H*, Calcium 9.3, Total Bilirubin 0.70, Direct Bilirubin 0.18, AST 19, ALT 29, Alkaline Phosphatase 174 H, Troponin I High Sens 17, Total Protein 9.0 H, Albumin 3.5, Globulin 5.5 H, Lipase 111 04/05/21 10:29: Acetone Level LARGE H 04/05/21 11:41: Urine Color Yellow, Urine Clarity Clear, Urine pH 5.0, Ur Specific [place] 1.020, Urine Protein 100 H, Urine Glucose (UA) 1000 H, Urine Ketones 150 A*, Urine Occult Blood 25 H, Urine Nitrite Negative, Urine Bilirubin Negative, Urine Urobilinogen Normal, Ur Leukocyte Esterase Negative, Urine RBC 0 SEEN, Urine WBC 0-5 SEEN, Ur Squamous Epith Cells 0-5 SEEN, Urine Bacteria 0 SEEN, Urine Mucus 0 SEEN Micro: Microbiology 04/05/21 10:40 Nasal Secretion SARS-CoV-2 Antigen (Rapid) - Final Radiology Impression Acute Abdomen Series 04/05/21 10:50 IMPRESSION: Moderate amount of fecal material is seen in the colon. Electronically Signed: Varun Philippe MD at 11:10 EDT , Service support , Assessment & Plan Assessment/Plan (1) DKA (diabetic ketoacidosis): PLAN: Secondary to noncompliance with medications. Patient has been out of insulin for 2 weeks and states she is unable to afford due to financial difficulties she has run into since the disease of her . We will consult social service technician to see how patient can be assisted and what resources may be available in the community. For now admitted to ICU and start on insulin drip and IV fluids. Closely monitor electrolytes and adjust IV fluid constitution as necessary. Hourly Accu-Cheks. (2) Poorly controlled diabetes mellitus: PLAN: We will check hemoglobin A1c. neighborhood worker to assist with financial constraints making obtaining supplies and medications challenging. Home health care for shelter will be medically beneficial for this patient. Consult dietitian and early childhood special educator. (3) COPD (chronic obstructive pulmonary disease): PLAN: Stable and not in exacerbation. (4) Obesity: PLAN: Lifestyle modifications as able. Charges/Coding Visit Charges Inpatient E&M: 82928 Init Hosp L3
[2021-04-05 14:35] LABS: Bedside Glucose 382 mg/dL (70-110)
[2021-04-05 15:21] LABS: Bedside Glucose 379 mg/dL (70-110)
--- NOTE | 2021-04-05 15:22 | CM.ED ---
Addendum entered by Parish Franz 04/05/21 19:13: CHANDLER had called [facility] at [facility]. Left voice mail inquiring if they are currently taking patients. As of this writing 04/05/21 at 7:15pm. No response back. parish MONSALVE Original Note: CHANDLER Note Referral Source: food and beverage service manager Stacey Referral Reason: Patient told RN that she has not gotten her 's social security benefits as she has not called as she doesn't feel good . Told RN that her this summer. SW met with patient. She said that she does not feel good. Patient said that she gets $200 month in social security but pays $100 for hygiene supplies. Patient said she hasn't felt well and has not applied for any social security benefits related to her spouse's . She advised she has applied to receive her 's life insurance but has not gotten it yet. SW spoke of services through [facility] Program at [facility]. Patient reports that she gets assistance from [facility] for heat. Patient was in agreement with referral to Senior Outreach. CHANDLER called Teagan and requested an referral form. SW made a referral to Senior Outreach program at [facility] via fax. Confirmation received. Husam Sen Tech advised that patient reports she has not taken her diabetic medication for 2 weeks due to cost. CHANDLER provided Mckinley with list of home health agencies and Self Pay Packet with information on [facility]. (CHANDLER reviewed chart and patient has insurance) Plan: Referral to [facility] for supportive services Parish MONSALVE
[2021-04-05 16:56] LABS: Bedside Glucose 252 mg/dL (70-110)
[2021-04-05 17:56] LABS: Bedside Glucose 226 mg/dL (70-110)
[2021-04-05 19:31] LABS: Bedside Glucose 150 mg/dL (70-110)
[2021-04-05 20:16] LABS: Bedside Glucose 180 mg/dL (70-110)
[2021-04-05 21:20] LABS: Bedside Glucose 180 mg/dL (70-110)
[2021-04-05 21:55] LABS: Anion Gap 15 (5-15); BUN 18 mg/dL (7-18); BUN/Creat Ratio 16.7 RATIO (10-20); Calcium,Total 8.5 mg/dL (8.5-10.1); Chloride 113 mmol/L (98-107); Creatinine, Serum 1.08 mg/dL (0.55-1.02); EST Glomerular Filtration Rate 53 mL/min (>60); Est Glom Filt Rate - Afr Amer 64 mL/min (>60); Estimated Creatinine Clearance 34.49 ml/min; Glucose 182 mg/dL (74-106); Phosphorus 2.4 mg/dL (2.5-4.9); Potassium 3.3 mmol/L (3.5-5.1); Sodium Level 143 mmol/L (136-145)
[2021-04-05 22:36] LABS: Bedside Glucose 216 mg/dL (70-110)
[2021-04-05 23:41] LABS: Bedside Glucose 182 mg/dL (70-110)
[2021-04-06] VITALS (8 sets, daily range): BP systolic 109–153; BP diastolic 56–89; PULSE 68–77; RESP 16–20; TEMP 36.3–36.6; O2SAT 96–100; BMI 31.4
[2021-04-06 00:30] LABS: Bedside Glucose 174 mg/dL (70-110)
[2021-04-06 02:13] LABS: Anion Gap 12 (5-15); BUN 17 mg/dL (7-18); Calcium,Total 8.5 mg/dL (8.5-10.1); Chloride 112 mmol/L (98-107); Creatinine, Serum 0.95 mg/dL (0.55-1.02); EST Glomerular Filtration Rate 61 mL/min (>60); Est Glom Filt Rate - Afr Amer 74 mL/min (>60); Glucose 159 mg/dL (74-106); Potassium 3.1 mmol/L (3.5-5.1); Sodium Level 139 mmol/L (136-145)
[2021-04-06 02:26] LABS: Bedside Glucose 166 mg/dL (70-110)
[2021-04-06 03:16] LABS: Bedside Glucose 168 mg/dL (70-110)
[2021-04-06 04:21] LABS: Bedside Glucose 156 mg/dL (70-110)
[2021-04-06 05:45] LABS: Bedside Glucose 137 mg/dL (70-110)
--- NOTE | 2021-04-06 08:25 | RAD_ITS ---
STUDY: X-RAY CHEST REASON FOR EXAM: Female, 76 years old. INFECTION TECHNIQUE: Single AP portable view of the chest. COMPARISON: Comparison is made with prior study dated 04/05/2021. FINDINGS: The lungs are clear and expanded. There is no demonstrated pleural abnormality. Normal size heart. Normal mediastinum and isreal. Normal visualized pulmonary arteries. There is atherosclerotic calcification of the aortic arch with tortuosity. Normal visualized thoracic spine. Normal visualized ribs, clavicles, and shoulders. There is no demonstrated abnormality of the visualized soft tissue structures of the upper abdomen. RAD/Chest 1 View (Portable) IMPRESSION: No acute abnormality is seen. Electronically Signed: Varun Philippe MD at 14:28 EDT , Service support ,
[2021-04-06] MEDS: Potassium Chloride Oral Tablet 20 MEQ 40 MEQ PO (09:22)
[2021-04-06] MEDS: Acetaminophen 500 MG Tablet 1000 MG PO (09:22)
[2021-04-06] MEDS: Lisinopril 20 MG Tablet PO (09:23)
[2021-04-06] MEDS: Aspirin 81 MG TAB.CHEW PO (09:27)
[2021-04-06 09:36] LABS: Bedside Glucose 201 mg/dL (70-110)
[2021-04-06 09:38] LABS: Anion Gap 13 (5-15); BUN 17 mg/dL (7-18); BUN/Creat Ratio 18.6 RATIO (10-20); Calcium,Total 8.4 mg/dL (8.5-10.1); Chloride 109 mmol/L (98-107); Creatinine, Serum 0.92 mg/dL (0.55-1.02); EST Glomerular Filtration Rate 64 mL/min (>60); Est Glom Filt Rate - Afr Amer 77 mL/min (>60); Estimated Creatinine Clearance 40.48 ml/min; Glucose 227 mg/dL (74-106); Potassium 3.2 mmol/L (3.5-5.1); Sodium Level 138 mmol/L (136-145)
[2021-04-06 10:12] LABS: Hemoglobin A1c > 14.0 % (3.8-5.6)
[2021-04-06] MEDS: Insulin Lispro 100 UNIT/ML INSULN.PEN SC ×4 (10:59→21:00)
[2021-04-06] MEDS: Insulin Lispro 100 UNIT/ML INSULN.PEN 8 UNIT SC ×3 (10:59→16:17)
[2021-04-06] MEDS: Carvedilol 12.5 MG Tablet PO ×2 (11:00→20:59)
--- NOTE | 2021-04-06 11:30 | CASEMGMT ---
KARINE HARRISON Face to Face with patient for initial transition planning/care coordination assessment. KARINE HARRISON introduced self and role at [facility]. Patient lying in bed, alert and oriented. Patient willing to participate in assessment and is able to answer all questions appropriately. Care providers, pharmacy, and demographics verified. Patient wishes to discharge home with resumption of HHC for nursing. Patient states she has no further needs or concerns at this time. CM to follow for discharge planning needs that may arise. PCP: Radha Specialists: none Preferred Pharmacy: [facility] Insurance: Christopher HUI Prescription Benefit: yes Living Will/HPOA: None LNOK: son Living Arrangements: Patient lives with son in a mobile home with 3 steps and a railing to enter the home. Patient states she is independent at home. Transportation: son DME/HHC: Patient states she has walker and raised toilet. Patient states she has a nurse that comes to setup her medications for her. KARINE HARRISON called PCP office to inquire which HHC company patient is with. Will follow-up and assist with HHC resumption. Disposition Plan: Patient to discharge home with resumption of HHC, family support, and follow-up plans in place. Uma BALL, RN, CM
[2021-04-06 12:25] LABS: Bedside Glucose 320 mg/dL (70-110)
--- NOTE | 2021-04-06 14:00 | CASEMGMT ---
KARINE HARRISON received call back from PCP office and patient is setup with [facility]. KARINE HARRISON called [facility] and confirmed services. Patient has shelter. KARINE HARRISON added SW to [facility] services. KARINE HARRISON also sent referral to [facility]. CM to continue to follow this patient and plan for a safe discharge.
--- NOTE | 2021-04-06 14:29 | CHAPLAIN ---
Type of Pastoral Visit _x__ Initial Visit ___ Follow-up Visit ___ On-call Visit ___ General Patient Visit ___ Spiritual Assessment ___ Family Conference ___ Bereavement ___ Rapid Response ___ Code Blue ___ Other (describe below) Pastoral Care Referral From _x__ Patient ___ Family ___ Nurse ___ Physician ___ Barrow Worker Helper ___ Sewer Separation Designer ___ Other (describe below) Sacrament/Intervention _x__ Active listening ___ Anointing ___ Quaker ___ Bereavement ___ Communion ___ Ana exploration ___ _x__ Life review _x__ Prayer ___ Reconciliation ___ Sacrament of Sick _x__ Supportive presence ___ Wedding ___ Other (describe below) Pastoral Comments patient is talkative and gives much life review; pt lost her spouse in December and talks about that; pt requests that her welding machine operator friction be contacted as to her admission in hospital; call to welding machine operator friction was completed; presence and prayer given
--- NOTE | 2021-04-06 15:45 | CASEMGMT ---
Addendum entered by Alejandra Shannon 04/06/21 16:35: SW did also speak to our retail pharmacy about what strips the meter pt has at home takes, they are called Freestyle Precision angela glucose test strips. SW asked [facility], they could not tell SW cost without a script. However, in this SW's experience, the strips from [facility] are less expensive than strips through insurance, which is why this SW advised pt to get a new meter and strips from [facility] (it's $16 for the meter and $8 for 50 strips.) MAREN Kruse Original Note: SW met w/pt in room in regard to her medications, discharge plan. Pt states that she lives w/her son. She has not been checking her blood sugar as she can't afford the cost of the monitoring system. She has a system that goes on her arm, but is $77 and she can't afford it, she says it's not covered by her insurance. She also states cannot afford the copays for her diabetic medications so has not been getting them. Pt does have a meter, SW asked pt four times, she did finally state she doesn't know what kind it is. Pt states lives w/her son, gave SW permission to call her son. Pt states she is [place]( in [place]) with her daughter, but can't go because she's here. She states she will follow up after she's home a couple of days. SW called son in regard to pt and to verify what pt said to SW. He confirms that pt has not been checking her blood sugar. He states her meter at home is the Freestyle [id number](he spelled it) 14. This is the meter that goes with the monitor that goes on pt's arm. He is aware pt has not been getting the monitor or medications as cannot afford them. He states cannot help pt with the cost, he does not get paid until April 20. SW called our financial dept, pt does not have Medicaid. SW called [facility], confirmed the arm monitor is $73 and not covered by insurance. SW was able to get permission to use hospital assist to cover pt's copays for when she leaves here. SW spoke w/pt about getting a meter from [facility] and strips, she states that she can afford this. SW let pt know we will help with her copays when she leaves here, and she will get her meds from our pharmacy here. SW explained that we can only do this one time per year. Pt states understanding. SW gave pt information on the cost of the meter and strips at [place], SW gave pt a Medicaid application, information on [employer], the number to Social Security to call to try to get 's benefits, and the number for hospice for bereavement counseling, as she is having a tough time with the loss of her . She states they were 52 years. SW will also reach out to the SW at home health as well to ask her to follow up w/pt when she goes home. Green sheet and form for hospital assist on chart in anticipation of weekend discharge. MAREN Kruse
[2021-04-06 16:25] LABS: Bedside Glucose 300 mg/dL (70-110)
--- NOTE | 2021-04-06 19:19 | PN.HOSP_ITS ---
Subjective Subjective Patient was seen and examined today, it became evident that she did not really understand her disease process as far as her diabetes is concerned, she has not been giving herself insulin, she has not been monitoring her blood sugars. Patient appears to have some level of cognitive dysfunction, she complains that she cannot afford her medications or her blood sugar monitoring supplies. Objective Data Objective Data Vital Signs: Vital Signs Temp Pulse Resp BP Pulse Ox 98 F 76 16 109/56 L 99 04/06/21 15:36 04/06/21 15:36 04/06/21 15:36 04/06/21 15:36 04/06/21 15:36 Oxygen Delivery Method Room Air Weight: 76.657 kg Body Mass Index (BMI) 31.4 Intake & Output: Intake and Output for Last 24 Hours 04/04/21 04/05/21 04/06/21 23:59 23:59 23:59 Intake Total 1568.39 / 1568.39 3661.61 / 3661.61 Balance 1568.39 / 1568.39 3661.61 / 3661.61 Lab / Micro Data Result Diagrams: 04/05/21 10:29 04/06/21 09:07 Labs: Laboratory Results - last 24 hr 04/05/21 19:06: POC Glucose 150 H 04/05/21 20:01: POC Glucose 180 H 04/05/21 21:04: POC Glucose 180 H 04/05/21 21:05: Sodium 143, Potassium 3.3 L, Chloride 113 H, Carbon Dioxide 15.0 L, Anion Gap 15, BUN 18, Creatinine 1.08 H, Estim Creat Clear Calc 34.49, Est GFR (MDRD) Af Amer 64, Est GFR (MDRD) Non-Af 53 L, BUN/Creatinine Ratio 16.7, Glucose 182 H, Calcium 8.5, Phosphorus 2.4 L 04/05/21 22:27: POC Glucose 216 H 04/05/21 23:21: POC Glucose 182 H 04/06/21 00:20: POC Glucose 174 H 04/06/21 01:16: POC Glucose 166 H 04/06/21 01:54: Sodium 139, Potassium 3.1 L, Chloride 112 H, Carbon Dioxide 15.0 L, Anion Gap 12, BUN 17, Creatinine 0.95, Estim Creat Clear Calc 39.20, Est GFR (MDRD) Af Amer 74, Est GFR (MDRD) Non-Af 61, BUN/Creatinine Ratio 18.0, Glucose 159 H, Calcium 8.5 04/06/21 03:08: POC Glucose 168 H 04/06/21 04:14: POC Glucose 156 H 04/06/21 05:38: POC Glucose 137 H 04/06/21 09:07: Sodium 138, Potassium 3.2 L, Chloride 109 H, Carbon Dioxide 16.0 L, Anion Gap 13, BUN 17, Creatinine 0.92, Estim Creat Clear Calc 40.48, Est GFR (MDRD) Af Amer 77, Est GFR (MDRD) Non-Af 64, BUN/Creatinine Ratio 18.6, Glucose 227 H, Calcium 8.4 L 04/06/21 09:07: Hemoglobin A1c > 14.0 H 04/06/21 09:29: POC Glucose 201 H 04/06/21 12:14: POC Glucose 320 H 04/06/21 16:15: POC Glucose 300 H Micro: Microbiology 04/05/21 10:40 Nasal Secretion SARS-CoV-2 Antigen (Rapid) - Final Radiography Diagnostic Testing: Radiology Impression Chest X-Ray 04/06/21 08:25 IMPRESSION: No acute abnormality is seen. Electronically Signed: Varun Philippe MD at 14:28 EDT , Service support , Physical Exam Const alert, oriented x3 and no apparent distress Constitutional Narrative: Patient exhibits some form of cognitive dysfunction as it pertains to her type 2 diabetes General Appearance: cooperative, well kempt and well developed Orientation / Consciousness: awake, oriented to person, oriented to place and oriented to time HEENT normocephalic, head/scalp atraumatic and moist oral mucous membranes HEENT Narrative: Patient is hard of hearing Head and Scalp: normocephalic Eyes PERRL, EOMs intact bilaterally and conjunctivae normal Neck nuchal rigidity, no lymphadenopathy, supple, no JVD, thyroid normal and no carotid bruits General: trachea midline Resp normal respiratory effort, no retractions, no use of accessory muscles and clear to auscultation bilaterally Auscultation: Negative for rales, rhonchi or wheezes Cardio regular rate, regular rhythm, S1 normal heart sound, S2 normal heart sound, no murmurs, no rub and no gallops GI normal to inspection, nondistended, normoactive bowel sounds, soft to palpation, non-tender and non-distended Extremity no clubbing, cyanosis or edema Skin no rashes or lesions noted General Skin Exam: no breakdown Neuro oriented x3, CN's II-XII intact bilaterally, no focal motor deficits and no sensory deficits noted Sensorium / Orientation: awake and alert Speech: speech normal Psych thought process normal and affect normal Assessment & Plan Assessment/Plan (1) Type II diabetes mellitus: PLAN: 1. Diabetic ketoacidosis-resolved at this time, I will adjust the patient's insulin to something more cost effective when she goes home, I will make these changes before she is discharged. I talked to case management social worker concerning a home glucose monitor, they recommended to use a [employer] monitor which is more cost effective. Patient has been using a continuous glucose monitor at home but she cannot afford the accessories to go with the monitor. #2 noncompliance with medical regimen-patient does not appear to understand her disease process as far as her type 2 diabetes is concerned, I do not know if this is cognitive in nature or whether she is just not compliant. I will talk with her at length before she is discharged. #3 chronic obstructive pulmonary disease #4 type 2 diabetes #5 coronary artery disease #6 cerebrovascular disease #7 hypokalemia-additional potassium was given today Charges/Coding Visit Charges Inpatient E&M: 02526 Subs Hosp L2
[2021-04-06] MEDS: metFORMIN HCl 500 MG Tablet PO (20:59)
[2021-04-06 21:35] LABS: Bedside Glucose 309 mg/dL (70-110)
[2021-04-07 03:14] VITALS: BP 122/52; PULSE 68; RESP 16; TEMP 36.5; O2SAT 97
[2021-04-07 06:47] LABS: Bedside Glucose 326 mg/dL (70-110)
[2021-04-07] MEDS: Insulin Lispro 100 UNIT/ML INSULN.PEN 8 UNIT SC ×3 (09:49→12:37)
[2021-04-07] MEDS: metFORMIN HCl 500 MG Tablet PO ×3 (09:51→21:09)
[2021-04-07] MEDS: Insulin Lispro 100 UNIT/ML INSULN.PEN SC ×4 (09:51→21:09)
[2021-04-07] MEDS: Aspirin 81 MG TAB.CHEW PO (09:52)
[2021-04-07] MEDS: Lisinopril 20 MG Tablet PO (09:53)
[2021-04-07] MEDS: Carvedilol 12.5 MG Tablet PO ×2 (09:53→21:09)
[2021-04-07 10:00] VITALS: BP 134/73; PULSE 60; RESP 18; TEMP 36.7; O2SAT 94
[2021-04-07 11:36] LABS: Bedside Glucose 346 mg/dL (70-110)
[2021-04-07 17:20] LABS: Bedside Glucose 155 mg/dL (70-110)
--- NOTE | 2021-04-07 18:00 | PN.HOSP_ITS ---
Subjective Subjective Patient was seen and examined today, her blood sugar still not under good control. I phoned a prescription for basal insulin into the hospital's pharmacy for the patient, she told case management that she was not able to afford insulin at her pharmacy. I have my doubts that the patient will be compliant with using her diabetic medications at home. I am going to increase her Metformin today and monitor her sugars. Objective Data Objective Data Vital Signs: Vital Signs Temp Pulse Resp BP Pulse Ox 98.0 F 60 18 134/73 H 94 04/07/21 10:00 04/07/21 10:00 04/07/21 10:00 04/07/21 10:00 04/07/21 10:00 Oxygen Delivery Method Room Air Weight: 78.1 kg Body Mass Index (BMI) 31.4 Intake & Output: Intake and Output for Last 24 Hours 04/05/21 04/06/21 04/07/21 23:59 23:59 23:59 Intake Total 1568.39 / 1568.39 4661.61 / 4661.61 Output Total 400 / 400 400 / 400 Balance 1568.39 / 1568.39 4261.61 / 4261.61 -400 / -400 Lab / Micro Data Result Diagrams: 04/05/21 10:29 04/06/21 09:07 Labs: Laboratory Results - last 24 hr 04/06/21 20:49: POC Glucose 309 H 04/07/21 06:36: POC Glucose 326 H 04/07/21 11:29: POC Glucose 346 H 04/07/21 17:07: POC Glucose 155 H Micro: Microbiology 04/05/21 10:40 Nasal Secretion SARS-CoV-2 Antigen (Rapid) - Final Physical Exam Const alert, oriented x3 and no apparent distress Constitutional Narrative: Patient exhibits some signs of chronic cognitive impairment General Appearance: cooperative, well kempt and well developed Orientation / Consciousness: awake, oriented to person, oriented to place and oriented to time HEENT normocephalic, head/scalp atraumatic and moist oral mucous membranes Head and Scalp: normocephalic Eyes PERRL, EOMs intact bilaterally and conjunctivae normal Neck nuchal rigidity, supple, no JVD, thyroid normal and no carotid bruits General: trachea midline Resp normal respiratory effort, no retractions, no use of accessory muscles and clear to auscultation bilaterally Auscultation: Negative for rales, rhonchi or wheezes Cardio regular rate, regular rhythm, S1 normal heart sound, S2 normal heart sound, no murmurs, no rub and no gallops GI normal to inspection, nondistended, normoactive bowel sounds, soft to palpation, non-tender and non-distended Extremity no clubbing, cyanosis or edema Skin no rashes or lesions noted General Skin Exam: no breakdown Neuro oriented x3, CN's II-XII intact bilaterally, no focal motor deficits and no sensory deficits noted Sensorium / Orientation: awake and alert Speech: speech normal Psych thought process normal and affect normal Assessment & Plan Assessment/Plan (1) Type II diabetes mellitus: PLAN: 1. Diabetic ketoacidosis-resolved at this time, I will adjust the patient's insulin to something more cost effective when she goes home, I will make these changes before she is discharged. Today I have increased her basal i nsulin, I would like to send her home on no regular insulin because I do not think she will be compliant with giving herself 3 injections of regular insulin per day. #2 noncompliance with medical regimen-patient does not appear to understand her disease process as far as her type 2 diabetes is concerned, I do not know if this is cognitive in nature or whether she is just not compliant. Again I will try to adjust her medications so at the time of discharge she is on a simple regimen. #3 chronic obstructive pulmonary disease #4 type 2 diabetes #5 coronary artery disease #6 cerebrovascular disease #7 hypokalemia-I will recheck the patient's BMP tomorrow Charges/Coding Visit Charges Inpatient E&M: 99383 Subs Hosp L2
[2021-04-07 21:01] LABS: Bedside Glucose 190 mg/dL (70-110)
[2021-04-07 21:04] VITALS: BP 152/74; PULSE 64; RESP 16; TEMP 36.7; O2SAT 98
[2021-04-08 02:25] VITALS: BP 115/51; PULSE 76; RESP 18; TEMP 36.8; O2SAT 98
[2021-04-08 07:18] LABS: Anion Gap 7 (5-15); BUN 20 mg/dL (7-18); BUN/Creat Ratio 32.5 RATIO (10-20); Calcium,Total 8.5 mg/dL (8.5-10.1); Chloride 107 mmol/L (98-107); Creatinine, Serum 0.62 mg/dL (0.55-1.02); EST Glomerular Filtration Rate 101 mL/min (>60); Est Glom Filt Rate - Afr Amer 122 mL/min (>60); Estimated Creatinine Clearance 37.24 ml/min; Glucose 211 mg/dL (74-106); Potassium 3.3 mmol/L (3.5-5.1); Sodium Level 136 mmol/L (136-145)
[2021-04-08] MEDS: Insulin Lispro 100 UNIT/ML INSULN.PEN 8 UNIT SC (08:41)
[2021-04-08] MEDS: Insulin Lispro 100 UNIT/ML INSULN.PEN SC (08:42)
[2021-04-08] MEDS: metFORMIN HCl 850 MG Tablet PO (08:43)
[2021-04-08] MEDS: Aspirin 81 MG TAB.CHEW PO (08:44)
[2021-04-08] MEDS: Carvedilol 12.5 MG Tablet PO (08:44)
[2021-04-08] MEDS: Lisinopril 20 MG Tablet PO (08:44)
[2021-04-08] MEDS: Benzonatate 100 MG Capsule PO (08:50)
--- NOTE | 2021-04-08 10:00 | PCM.DC ---
Discharge Instructions Diet Discharge Diet: 1800 Calorie Control Diet Activity Discharge Activity: Return to Normal Activity Weight Bearing Status: Full weight bearing Follow Up Care Test Results: Test results from this visit will be discussed in further detail at your follow-up appointment, if applicable. Discharge Plan Admission Admit Date/Time: 04/05/21 14:10 Primary Reason for Your Visit: DKA Attending Provider: Avinash Hernandez Primary Care Provider: Martín Garcia Discharge Orders/Prescriptions Prescriptions: New Lantus Solostar U-100 Insulin 100 unit/mL (3 mL) Insulin Pen 45 unit subcut BREAKFAST Qty: 0 RF: 0 metformin 850 mg Tablet 850 mg PO BIDCM Qty: 0 RF: 0 Continued aspirin 81 MG tablet,chewable 81 mg PO DAILY RF: 0 carvedilol 12.5 MG tablet 12.5 mg PO BID RF: 0 hydroxyzine HCl 25 MG tablet 25 mg PO QHS PRN (Reason: Itching) RF: 0 ergocalciferol (vitamin D2) 50,000 UNIT capsule 50,000 unit PO QWEEK RF: 0 albuterol sulfate 1 INHALER inhaler 1 - 2 puff inhalation Q4H PRN PRN (Reason: Sob &/Or Wheezing) RF: 0 acetaminophen 500 mg Capsule 1,000 mg PO Q6H PRN (Reason: Pain) RF: 0 ondansetron HCl 4 mg tablet 4 mg PO Q8H PRN (Reason: Nausea) RF: 0 famotidine 40 mg Tablet 40 mg PO BID RF: 0 benzonatate 100 mg capsule 100 mg PO QHS PRN (Reason: Cough) RF: 0 ferrous sulfate 325 mg (65 mg iron) Tablet 325 mg PO TID RF: 0 buspirone 10 mg tablet 10 mg PO BID PRN (Reason: Anxiety) RF: 0 benazepril 40 mg Tablet 40 mg PO DAILY RF: 0 Flovent HFA 110 mcg/actuation Hfa Aerosol Inhaler 2 puff INHALATION BID RF: 0 escitalopram oxalate 20 mg tablet 20 mg PO DAILY RF: 0 sodium chloride 0.65 % Aerosol,[place] 1 spray INTRANASAL DAILY RF: 0 rosuvastatin 10 mg tablet 10 mg PO DAILY RF: 0 furosemide 20 MG tablet 20 mg PO DAILY PRN (Reason: WT GAIN) RF: 0 Discontinued insulin aspart U-100 [Novolog Flexpen U-100 Insulin] 100 unit/mL (3 mL) insulin pen See Protocol unit subcut TIDCM RF: 0 Tresiba FlexTouch U-100 100 unit/mL (3 mL) insulin pen 42 unit SUBCUT BREAKFAST RF: 0 oxybutynin chloride 5 mg tablet extended release 24hr 5 mg PO DAILY RF: 0 metformin 500 mg Tablet Extended Release 24 Hr 500 mg PO DAILY RF: 0 Referrals / Follow Up: Martín Garcia DO [Primary Care Provider] - Within 1 Week Disposition Disposition (needs filled in before D/C Order can be placed): Home, Self Care
[2021-04-08 10:17] VITALS: BP 127/70; PULSE 77; RESP 18; TEMP 36.7; O2SAT 96
[2021-04-08 11:45] LABS: Bedside Glucose 256 mg/dL (70-110)
--- NOTE | 2021-04-08 12:50 | NURSING ---
discharge instructions faxed to [facility]. called cement or concrete finishing supervisor RN to notify of discharge.
--- NOTE | 2021-04-09 13:55 | CASEMGMT ---
KARINE HARRISON Discharge Follow-up Phone Call: BRITNI: Lionel Strata: 3 Call Date: 04/09/21 Discharge Date: 04/08/21 Time of Call: 1355 Duration: 1 min Admitting Diagnosis: DKA KARINE HARRISON attempted to complete follow-up phone call after recent hospitalization. No answer, voice message left with return contact information. Patient was setup with [facility] and [facility] at discharge.
--- NOTE | 2021-04-09 19:19 | DS.PCM_ITS ---
Providers Date of Admission: 04/05/21 Date of Discharge: 04/08/21 Primary Care Physician: Dr. Martín Garcia DO Reason For Visit: DKA Diagnosis Discharge Diagnosis (1) Type II diabetes mellitus: Status: Chronic Code(s): E11.9 - Type 2 diabetes mellitus without complications Plan: Final diagnosis #1 type 2 diabetes with ketoacidosis #2 noncompliance with medical regimen #3 chronic obstructive pulmonary disease #4 coronary artery disease #5 cerebrovascular disease #6 hypokalemia #7 cognitive impairment-not felt to be secondary to dementia, chronic in nature Medications at Discharge Home Medications aspirin 81 mg PO DAILY 07/25/19 albuterol sulfate 1 - 2 puff INHALATION Q4H PRN PRN 09/26/19 carvedilol 12.5 mg PO BID 09/26/19 ergocalciferol (vitamin D2) 50,000 unit PO QWEEK 09/26/19 hydroxyzine HCl 25 mg PO QHS PRN 09/26/19 acetaminophen 1,000 mg PO Q6H PRN 12/16/20 Flovent HFA 2 puff INHALATION BID 04/05/21 benazepril 40 mg PO DAILY 04/05/21 benzonatate 100 mg PO QHS PRN 04/05/21 buspirone 10 mg PO BID PRN 04/05/21 escitalopram oxalate 20 mg PO DAILY 04/05/21 famotidine 40 mg PO BID 04/05/21 ferrous sulfate 325 mg PO TID 04/05/21 furosemide 20 mg PO DAILY PRN 04/05/21 ondansetron HCl 4 mg PO Q8H PRN 04/05/21 rosuvastatin 10 mg PO DAILY 04/05/21 sodium chloride 1 spray INTRANASAL DAILY 04/05/21 insulin glargine [Lantus Solostar U-100 Insulin] 45 unit SUBCUT BREAKFAST #0 ml 04/08/21 metformin 850 mg PO BIDCM #0 tab 04/08/21 Hospital Course Operations None Procedures None Summary of Care Provided Minutes Spent on Discharge: 32 Hospital Course: This 76-year-old white female was seen in the emergency room at [facility] with complaints of malaise and generalized fatigue, she was noted upon work-up in the emergency room to have an elevated blood glucose with ketosis and ketonuria and acidosis. Patient was admitted to ICU and placed on an insulin drip with IV fluids, patient's blood sugars became under control in a short period of time and she was moved out to the [facility] floor. Patient complained that she had no money to get her medications although some of her medications were extremely inexpensive (Metformin), it appeared that the patient was not knowingly not taking her medication for some reason. It was theorized that the patient was either depressed or was mentally not capable of staying compliant with her medications, patient's earlier this year and it was felt that he was probably doing most of the patient's medical care at home. Patient's medications were adjusted for her diabetes while she was in the hospital to simplify administration. On 04/08/2021, patient was seen and examined: On examination she appeared in good health and spirits, she does not appear to be in any distress. Vital signs as documented. Skin warm and dry and without overt rashes. Neck without JVD, thyroid appears normal, trachea is midline, neck is supple. Lungs clear, normal air movement was noted. Heart exam notable for regular rhythm, normal sounds and absence of murmurs, rubs or gallops. Abdomen unremarkable and without evidence of organomegaly, masses, or abdominal aortic enlargement, bowel sounds are present in all 4 quadrants, no abdominal tenderness was noted. Extremities nonedematous, no cyanosis was noted, no clubbing was noted. Neuro: Cranial nerves II through XII are grossly intact, no focal motor deficits were noted, sensation to light touch and pinprick is intact, motor exam 5/5 throughout. Psych: Patient is alert and oriented x3, she does not appear anxious or depressed, she does not appear agitated. Patient was felt to be stable for discharge on 04/08/2021, prognosis was guarded due to the patient's cognitive impairment which was felt to be chronic. Weight / BMI Weight Weight: 77.6 kg Body Mass Index (BMI) 31.4 ABG / Lab / Microbiology Data Result Diagrams: 04/05/21 10:29 04/08/21 06:49 Microbiology: Microbiology 04/05/21 10:40 Nasal Secretion SARS-CoV-2 Antigen (Rapid) - Final D/C Instructions Discharge Diet: 1800 Calorie Control Diet Weight Bearing Status: Full weight bearing Meaningful Use Info Meaningful Use Diagnoses (Choose all that apply): None applicable Discharge Plan Admission Admit Date/Time: 04/05/21 14:10 Primary Reason for Your Visit: DKA Attending Provider: Avinash Hernandez Primary Care Provider: Martín Garcia Discharge Orders/Prescriptions Prescriptions: New Lantus Solostar U-100 Insulin 100 unit/mL (3 mL) Insulin Pen 45 unit subcut BREAKFAST Qty: 0 RF: 0 metformin 850 mg Tablet 850 mg PO BIDCM Qty: 0 RF: 0 Continued aspirin 81 MG tablet,chewable 81 mg PO DAILY RF: 0 carvedilol 12.5 MG tablet 12.5 mg PO BID RF: 0 hydroxyzine HCl 25 MG tablet 25 mg PO QHS PRN (Reason: Itching) RF: 0 ergocalciferol (vitamin D2) 50,000 UNIT capsule 50,000 unit PO QWEEK RF: 0 albuterol sulfate 1 INHALER inhaler 1 - 2 puff inhalation Q4H PRN PRN (Reason: Sob &/Or Wheezing) RF: 0 acetaminophen 500 mg Capsule 1,000 mg PO Q6H PRN (Reason: Pain) RF: 0 ondansetron HCl 4 mg tablet 4 mg PO Q8H PRN (Reason: Nausea) RF: 0 famotidine 40 mg Tablet 40 mg PO BID RF: 0 benzonatate 100 mg capsule 100 mg PO QHS PRN (Reason: Cough) RF: 0 ferrous sulfate 325 mg (65 mg iron) Tablet 325 mg PO TID RF: 0 buspirone 10 mg tablet 10 mg PO BID PRN (Reason: Anxiety) RF: 0 benazepril 40 mg Tablet 40 mg PO DAILY RF: 0 Flovent HFA 110 mcg/actuation Hfa Aerosol Inhaler 2 puff INHALATION BID RF: 0 escitalopram oxalate 20 mg tablet 20 mg PO DAILY RF: 0 sodium chloride 0.65 % Aerosol,[place] 1 spray INTRANASAL DAILY RF: 0 rosuvastatin 10 mg tablet 10 mg PO DAILY RF: 0 furosemide 20 MG tablet 20 mg PO DAILY PRN (Reason: WT GAIN) RF: 0 Discontinued insulin aspart U-100 [Novolog Flexpen U-100 Insulin] 100 unit/mL (3 mL) insulin pen See Protocol unit subcut TIDCM RF: 0 Tresiba FlexTouch U-100 100 unit/mL (3 mL) insulin pen 42 unit SUBCUT BREAKFAST RF: 0 oxybutynin chloride 5 mg tablet extended release 24hr 5 mg PO DAILY RF: 0 metformin 500 mg Tablet Extended Release 24 Hr 500 mg PO DAILY RF: 0 Referrals / Follow Up: Martín Garcia DO [Primary Care Provider] - Within 1 Week Disposition Disposition (needs filled in before D/C Order can be placed): Home, Self Care Charges/Coding Visit Charges Inpatient E&M: 88924 Disch Hosp
--- NOTE | 2021-04-11 13:15 | CCN.REFER ---
PATIENT DOES NOT QUALIFY FOR CCN PATIENT EXCEEDS WHAT CCN CAN OFFER AT THIS TIME. ALSO, HEALTH DEPT MADE AWARE OF BED BUGS, AND PCP MADE AWARE.
== END 2021-04-08 14:09 | disposition home health service (06) | DRG 639 ==
LOC: ED 13:28 → MS2 04-06 07:33
PROVIDERS: Emergency Medicine; Admitting Provider Internal Medicine; Emergency Provider Emergency Medicine; PCP Student in an Organized Health Care Education/Training Program; Visit Provider Internal Medicine
DX: E11.10 Type 2 diabetes mellitus with ketoacidosis without coma (principal); E87.6 Hypokalemia; Z20.822 Contact with and (suspected) exposure to COVID-19; I25.10 Atherosclerotic heart disease of native coronary artery without angina pectoris; J44.9 Chronic obstructive pulmonary disease, unspecified; I10 Essential (primary) hypertension; M19.90 Unspecified osteoarthritis, unspecified site; E66.9 Obesity, unspecified; Z68.31 Body mass index [BMI] 31.0-31.9, adult; Z91.14 Patient's other noncompliance with medication regimen; Z79.82 Long term (current) use of aspirin; Z79.4 Long term (current) use of insulin; Z79.899 Other long term (current) drug therapy; Z86.73 Personal history of transient ischemic attack (TIA), and cerebral infarction without residual deficits; Z85.43 Personal history of malignant neoplasm of ovary
CPT/HCPCS: 36415; 71045; 74022; 80048; 80076; 81001; 82009; 82962; 83036; 83690; 84100; 84484; 85025; 87426; 93005; 97161; 97165; 97802; 99285; J7030; A4216; J7799

== ENCOUNTER 2021-04-26 13:25 | Inpatient (IN) | payer MEDICARE, OTHER, SELFPAY ==
[2021-04-26] VITALS (25 sets, daily range): BP systolic 78–138; BP diastolic 48–97; PULSE 65–90; RESP 13–20; TEMP 35.3–36.7; O2SAT 91–99; BMI 29.7; BMI 27.7
[2021-04-26] MEDS: Dextrose 50%-Water 25 GM/50 ML DISP.SYRIN IV ×3 (13:38→16:20)
--- NOTE | 2021-04-26 13:39 | EX.ED.DYSGE1 ---
HPI History of Present Illness Chief Complaint: Hypoglycemia Detail of Chief Complaint: Altered mental status due to hypoglycemia Informant: EMS Onset/Context/Timing Onset: - (Unknown) Context: - (Unknown) Timing: - (Known) Quality: Blood sugar was 40 Location: Unknown Current Severity: Per HPI Maximum Severity: Per HPI Worsened by: Unknown Relieved by: Transiently better after D50 Associated Symptoms Associated Symptoms: I am cold Narrative Narrative: Patient is a 76-year-old woman with history of type 2 diabetes who was brought in for hypoglycemia. She received D50. She had improvement of her blood sugar and awoke. When I entered the room she was unresponsive diaphoretic and pale. After patient received amp of D50 she was examined again. She remains pale diaphoretic with depressed level conscious. Her only responses . Unable to get any other history. Prior similar symptoms: No (Unknown) Recent Illness/Hospitalization: No PFSH PFSH Medical History Arthritis Diabetes Heart disease HTN (hypertension) Kidney disease Kidney stone Non-smoker Ovarian cancer SOB (shortness of breath) Stroke Home Medications aspirin 81 mg PO DAILY 07/25/19 [History Last Taken 04/05/21] albuterol sulfate 1 - 2 puff INHALATION Q4H PRN PRN 09/26/19 [History Last Taken 04/05/21] carvedilol 12.5 mg PO BID 09/26/19 [History Last Taken Unknown] ergocalciferol (vitamin D2) 50,000 unit PO QWEEK 09/26/19 [History Last Taken Unknown] hydroxyzine HCl 25 mg PO QHS PRN 09/26/19 [History Last Taken Unknown] acetaminophen 1,000 mg PO Q6H PRN 12/16/20 [History Last Taken 04/04/21] Flovent HFA 2 puff INHALATION BID 04/05/21 [History Last Taken Unknown] benazepril 40 mg PO DAILY 04/05/21 [History Last Taken Unknown] benzonatate 100 mg PO QHS PRN 04/05/21 [History Last Taken Unknown] buspirone 10 mg PO BID PRN 04/05/21 [History Last Taken Unknown] escitalopram oxalate 20 mg PO DAILY 04/05/21 [History Last Taken Unknown] famotidine 40 mg PO BID 04/05/21 [History Last Taken Unknown] ferrous sulfate 325 mg PO TID 04/05/21 [History Last Taken Unknown] furosemide 20 mg PO DAILY PRN 04/05/21 [History Last Taken Unknown] ondansetron HCl 4 mg PO Q8H PRN 04/05/21 [History Last Taken Unknown] rosuvastatin 10 mg PO DAILY 04/05/21 [History Last Taken Unknown] sodium chloride 1 spray INTRANASAL DAILY 04/05/21 [History Last Taken Unknown] insulin glargine [Lantus Solostar U-100 Insulin] 45 unit SUBCUT BREAKFAST #0 ml 04/08/21 [Rx Last Taken Unknown] metformin 850 mg PO BIDCM #0 tab 04/08/21 [Rx Last Taken Unknown] Allergy/AdvReac Type Severity Reaction Status Date / Time latex Allergy Rash Verified 04/26/21 13:27 Penicillins Allergy Hives Verified 04/26/21 13:27 Family History Other Cancer Surgical History H/O heart surgery H/O knee surgery History of cholecystectomy History of coronary artery stent placement Social History (Updated 04/26/21 @ 14:[address] Tom Leary MD) household members: none Smoking Status: Never smoker alcohol intake: never ROS ROS ED Review of Systems ROS Unobtainable: due to mental condition EXAM Physical Exam Const Vital Signs: 04/26/21 13:27 04/26/21 13:35 04/26/21 13:39 Temperature 97.6 F L 97.6 F L Temperature Source Oral Oral Pulse Rate 90 90 90 Respiratory Rate 16 20 H 16 Respiratory Effort Normal Non-Labored Blood Pressure 138/97 H 138/97 H Blood Pressure Mean 110 110 Pulse Ox 94 95 95 Oxygen Delivery Method Room Air Room Air Room Air Positive well nourished and well developed General Appearance ED: well developed, diaphoretic and pallor HEENT HEENT Narrative: Head is atraumatic normocephalic. Pupils are equal round reactive. Ears normal. Nares patent. Uvula midline. No erythema or exudate. Eyes PERRL and EOMs intact bilaterally General Eye ED: Negative for pale conjunctiva or scleral icterus Neck no lymphadenopathy, supple and no JVD Resp normal respiratory effort and No clear to auscultation bilaterally Effort and Inspection: other Adventitial breath sounds noted bilaterally. Cardio regular rate, regular rhythm, S1 normal heart sound, S2 normal heart sound and no murmurs GI normal to inspection, nondistended, normoactive bowel sounds and non-tender Palpation: soft Back/Spine no CVA tenderness Extremity normal to inspection General Extremety ED: Negative for tenderness Neuro No oriented x3 Neuro Narrative: Moves all extremities. Opens eyes to questions. Follows simple commands. DTR symmetric with no clonus or Babinski sign. Sensorium / Orientation: Negative for alert Psych Negative for mental status grossly normal Skin Skin Narrative: Patient is diaphoretic. General Skin Exam: pallor; Negative for jaundice MDM MDM MDM Narrative Medical decision making narrative: Since patient's blood sugar was low she received amp of D50. Since this recurred rapidly and she is on oral agents she was treated with 100 mcg of octreotide subcu. Initially a BMP was ordered. Since she still is pale diaphoretic and not very responsive additional laboratory tests were obtained. Chest x-ray to rule out aspiration or pneumonia. CBC to assess white count and H&H. Basic metabolic panel to assess renal function electrolytes. Straight cath urine to rule out urinary tract infection. Patient was reassessed at 1440. She is oriented x3. She is not awake, however. She states she wants to go home. When asked to set up she cannot. Blood sugar was reassessed and is 65. This would explain her altered mental status. Since this is the third episode in spite of appropriate treatment will call hospitalist for admission. She received a amp of D50 and placed on a D10 drip. Since patient remains with altered mental status and depressed GCS CT of the head was obtained. This will be followed by the hospitalist. Plan is admit to PCU stepdown. Lab Data Attestation: I reviewed the patient's lab results. Labs: Laboratory Results - last 24 hr 04/26/21 04/26/21 04/26/21 13:33 13:50 13:50 WBC RBC Hgb Hct MCV MCH MCHC RDW Std Deviation RDW Coeff of Scotty Plt Count MPV Immature Gran % (Auto) Neut % (Auto) Lymph % (Auto) [place] % (Auto) Eos % (Auto) Baso % (Auto) Absolute Neuts (auto) Absolute Lymphs (auto) Nucleated RBC % Sodium 138 Potassium 3.3 L Chloride 105 Carbon Dioxide 24.0 Anion Gap 9 BUN 16 Creatinine 0.84 Estim Creat Clear Calc 50.74 Est GFR (MDRD) Af Amer 85 Est GFR (MDRD) Non-Af 71 BUN/Creatinine Ratio 19.1 Glucose 245 H Calcium 8.3 L Total Bilirubin 0.50 Direct Bilirubin 0.13 AST 34 ALT 31 Alkaline Phosphatase 111 Total Protein 6.8 Albumin 2.9 L Globulin 3.9 Lipase 131 POC Glucose 72 04/26/21 04/26/21 13:59 14:10 WBC 9.0 RBC 4.84 Hgb 13.4 Hct 41.4 MCV 85.5 MCH 27.7 MCHC 32.4 RDW Std Deviation 39.6 RDW Coeff of Scotty 12.7 Plt Count 339 MPV 10.1 Immature Gran % (Auto) 0.400 Neut % (Auto) 75.1 H Lymph % (Auto) 16.1 L [place] % (Auto) 6.9 Eos % (Auto) 1.2 Baso % (Auto) 0.3 Absolute Neuts (auto) 6.8 Absolute Lymphs (auto) 1.45 Nucleated RBC % 0 Sodium Potassium Chloride Carbon Dioxide Anion Gap BUN Creatinine Estim Creat Clear Calc Est GFR (MDRD) Af Amer Est GFR (MDRD) Non-Af BUN/Creatinine Ratio Glucose Calcium Total Bilirubin Direct Bilirubin AST ALT Alkaline Phosphatase Total Protein Albumin Globulin Lipase POC Glucose 180 H EKG Initial EKG: Attestation: I personally reviewed and interpreted this EKG as follows: Interpretation: Sinus Rhythm (Sinus rhythm with a ventricular rate of 80. DC intervals 172 ms. QS duration 110 ms and there is criteria for LVH by voltage. QT duration 348 ms. [place] to the left.) Critical Care Time Critical Care Time: Yes Critical care time (excluding procedures): 30-74 minutes (History, physical, documentation, review of prior records, interpretation of laboratory results, treatment), Including time spent:, Discussing w/Patient &/or Family/Soil Science Technical Officer, Discussing w/Consultants and Arranging Admission or Transfer Discharge Plan Dx/Rx/DC Orders Clinical Impression: Hypoglycemia, coma, Type II diabetes mellitus Disposition [facility]
[2021-04-26 13:41] LABS: Bedside Glucose 72 mg/dL (70-110)
--- NOTE | 2021-04-26 14:02 | EKG12_ITS ---
Test Reason : HYPOGLYCEMIA Blood Pressure : / mmHG Vent. Rate : 080 BPM Atrial Rate : 080 BPM P-R Int : 172 ms QRS Dur : 110 ms QT Int : 348 ms P-R-T Axes : 046 -42 068 degrees QTc Int : 401 ms Normal sinus rhythm Left axis deviation Voltage criteria for left ventricular hypertrophy Abnormal ECG When compared with ECG of 05-APR-2021 10:18, Non-specific change in ST segment in Inferior leads ST no longer depressed in Lateral leads Nonspecific T wave abnormality has replaced inverted T waves in Lateral leads Confirmed by MARLEN CASEY, RITO ([id number]), senior editor GUIDO GOLD ([id number]) on 05/02/2021 9:25:12 AM Referred By: JEFF Confirmed By:RITO GEE MD
[2021-04-26 14:06] LABS: Bedside Glucose 180 mg/dL (70-110)
[2021-04-26 14:11] LABS: Anion Gap 9 (5-15); BUN 16 mg/dL (7-18); BUN/Creat Ratio 19.1 RATIO (10-20); Calcium,Total 8.3 mg/dL (8.5-10.1); Chloride 105 mmol/L (98-107); Creatinine, Serum 0.84 mg/dL (0.55-1.02); EST Glomerular Filtration Rate 71 mL/min (>60); Est Glom Filt Rate - Afr Amer 85 mL/min (>60); Estimated Creatinine Clearance 50.74 ml/min; Glucose 245 mg/dL (74-106); Potassium 3.3 mmol/L (3.5-5.1); Sodium Level 138 mmol/L (136-145)
[2021-04-26 14:33] LABS: Absolute Lymphocyte Count 1.45 X10^3/uL (0.83-4.51); Absolute Neutrophil Count 6.8 X10^3/uL (2.0-7.7); Basophil# 0.03 X10^3/uL; Basophil% 0.3 % (0-1); Eosinophil# 0.11 X10^3/uL; Eosinophils% 1.2 % (0-5); Hematocrit 41.4 % (37-47); Hemoglobin 13.4 g/dL (12.0-15.0); Lymphocyte # 1.45 X10^3/ul (0.83-4.51); Lymphocyte % 16.1 % (19-41); Mean Corp Hgb Conc 32.4 g/dL (32-36); Mean Corpuscular Hgb 27.7 pg (27.0-32.0); Mean Corpuscular Volume 85.5 fL (81-99); Mean Platelet Vol. 10.1 fl (6.2-12.0); Monocyte# 0.62 X10^3/uL; Monocyte% 6.9 % (0-10); NRBC Flagged by Analyzer 0 % (0-5); Neutrophil # 6.75 X10^3/uL (2.7-7.7); Neutrophil % 75.1 % (47-70); Platelet Count 339 K/mm3 (150-450); RBC Distribution Width CV 12.7 % (11.6-14.6); RBC Distribution Width SD 39.6 fl (35.1-43.9); Red Blood Count 4.84 M/mm3 (4.2-5.4)
[2021-04-26 14:40] LABS: AST(SGOT) 34 U/L (15-37); Alanine Aminotransfer ALT/SGPT 31 U/L (13-56); Albumin, Serum 2.9 g/dL (3.2-5.0); Alkaline Phosphatase 111 U/L (45-117); Bilirubin, Direct 0.13 mg/dL (0.00-0.30); Globulin 3.9 g/dL (2.2-4.2); Lipase 131 U/L (73-393); Protein, Total 6.8 g/dL (6.4-8.2)
[2021-04-26 14:56] LABS: Bedside Glucose 65 mg/dL (70-110)
[2021-04-26] MEDS: Octreotide 0.1 MG/ML ML SC (14:57)
--- NOTE | 2021-04-26 15:06 | CT_ITS ---
EXAM: CT HEAD WITHOUT INTRAVENOUS CONTRAST CLINICAL INDICATION: Encephalopathy TECHNIQUE: Multiple axial images were obtained of the head without intravenous contrast. This CT exam was performed using one or more of the following dose reduction techniques: automated exposure control, adjustment of the mA and/or kV according to patient size, and/or use of iterative reconstruction technique. This report was created using [employer] report generation technology. COMPARISON: MRI brain without contrast 03/16/2021. CT head without contrast 03/16/2021. FINDINGS: BRAIN AND EXTRA-AXIAL SPACES: Unremarkable. No intra- or extra-axial hemorrhage. No evidence of acute infarct. No intracranial mass or mass effect. There is preservation of the orozco/white matter interface. Posterior fossa structures are unremarkable. Ventricles are appropriate for age. No hydrocephalus. Basal cisterns are patent. BONES/JOINTS: Unremarkable. No discrete lytic or blastic abnormalities. SINUSES: Unremarkable as visualized. Clear. MASTOID AIR CELLS: Unremarkable. Clear. ORBITS: Visualized globes, extraocular muscles, optic nerves and retrobulbar fat appear unremarkable. CT/Brain/Head without Contrast IMPRESSION: Negative head/brain CT without intravenous contrast and unchanged since 02/24/2021. Electronically Signed: Humphrey Rodriguez MD at 15:31 EDT , Service support ,
--- NOTE | 2021-04-26 15:25 | RAD_ITS ---
EXAM: XR CHEST, 1 VIEW CLINICAL INDICATION: Adventitial breath sounds TECHNIQUE: Frontal view of the chest. This report was created using [employer] report generation technology. COMPARISON: 04/06/2021. FINDINGS: LUNGS AND PLEURAL SPACES: Unremarkable. No consolidation or edema. No pneumothorax. No effusion. HEART: Unremarkable. Cardiac silhouette not enlarged. MEDIASTINUM: Central airways and mediastinal contour are unremarkable. BONES/JOINTS: Unremarkable. SOFT TISSUES: Unremarkable. RAD/Chest 1 View (Portable) IMPRESSION: No radiographic evidence of acute cardiopulmonary disease and unchanged since 04/06/2021. Electronically Signed: Humphrey Rodriguez MD at 15:32 EDT , Service support ,
[2021-04-26] MEDS: Dextrose 10%-Water 250 ML 40 ML IV (15:30)
--- NOTE | 2021-04-26 15:30 | PCM.HP.STD ---
Documented by User: Albertina Arroyo NP, DIRECTOR RADIATION ONCOLOGY-C 04/26/21 15:56 HPI - General General Date of Admission: 04/26/21 Date of Service: 04/26/21 HPI Narrative MARINA ADLTON, is a 76 F who presents to the Emergency Room due to altered mental status. Patient is encephalopathic during exam and unable to provide HPI. She does open eyes to noxious stimuli. No family at bedside. Per EMS report, squad was called due to patient drowsy, confused. She was found to be sitting in the driveway with family helping her stay alert. Her blood sugar was noted to be 52 and the squad blood glucose reading was 40. Patient was given 12.5 g of D50 and repeat glucose 180. Mental status reportedly initially improved however continues to remain lethargic and confused despite improvement in blood glucose. Per records, patient was admitted recently April 05, 2021 due to DKA as result of noncompliance with medications. She was reported to have difficulty affording due to financial difficulties and was assisted with medications at discharge. Per pharmacy records, patient was started on relion 70/30 35 units BID which she filled 04/10/21. She has a past medical history of type 2 diabetes mellitus, COPD, CAD with history of stents, hypertension, hyperlipidemia, history of CVA, cognitive impairment, anxiety, depression. [facility] Medical History Arthritis Diabetes Heart disease HTN (hypertension) Kidney disease Kidney stone Non-smoker Ovarian cancer SOB (shortness of breath) Stroke Home Medications aspirin 81 mg PO DAILY 07/25/19 [History Last Taken 04/05/21] albuterol sulfate 1 - 2 puff INHALATION Q4H PRN PRN 09/26/19 [History Last Taken 04/05/21] carvedilol 12.5 mg PO BID 09/26/19 [History Last Taken Unknown] ergocalciferol (vitamin D2) 50,000 unit PO QWEEK 09/26/19 [History Last Taken Unknown] hydroxyzine HCl 25 mg PO QHS PRN 09/26/19 [History Last Taken Unknown] Flovent HFA 2 puff INHALATION BID 04/05/21 [History Last Taken Unknown] buspirone 10 mg PO BID PRN 04/05/21 [History Last Taken Unknown] escitalopram oxalate 20 mg PO DAILY 04/05/21 [History Last Taken Unknown] famotidine 40 mg PO BID 04/05/21 [History Last Taken Unknown] ferrous sulfate 325 mg PO TID 04/05/21 [History Last Taken Unknown] furosemide 20 mg PO DAILY PRN 04/05/21 [History Last Taken Unknown] ondansetron HCl 4 mg PO Q8H PRN 04/05/21 [History Last Taken Unknown] rosuvastatin 10 mg PO DAILY 04/05/21 [History Last Taken Unknown] sodium chloride 1 spray INTRANASAL DAILY 04/05/21 [History Last Taken Unknown] benazepril 20 mg PO DAILY 04/26/21 [History Last Taken Unknown] insulin aspart U-100 [Novolog Flexpen U-100 Insulin] 18 unit SUBCUT TIDCM 04/26/21 [History Last Taken Unknown] insulin degludec [Tresiba FlexTouch U-100] 52 unit SUBCUT DAILY 04/26/21 [History Last Taken Unknown] metformin 500 mg PO DAILY 04/26/21 [History Last Taken Unknown] oxybutynin chloride 5 mg PO DAILY 04/26/21 [History Last Taken Unknown] Allergy/AdvReac Type Severity Reaction Status Date / Time latex Allergy Rash Verified 04/26/21 13:27 Penicillins Allergy Hives Verified 04/26/21 13:27 Family History Other Cancer unable to obtain (Due to patient encephalopathic.) Surgical History H/O heart surgery H/O knee surgery History of cholecystectomy History of coronary artery stent placement Social History (Updated 04/26/21 @ 14:[address] Tom Leary MD) household members: none Smoking Status: Never smoker alcohol intake: never ROS ROS Narrative Unable to obtain ROS due to encephalopathy. Review of Systems ROS Unobtainable: due to encephalopathy and due to mental status Vital Signs Vital Signs Vital Signs: 04/26/21 13:27 04/26/21 13:35 04/26/21 13:39 Temperature 97.6 F L 97.6 F L Temperature Source Oral Oral Pulse Rate 90 90 90 Respiratory Rate 16 20 H 16 Respiratory Effort Normal Non-Labored Blood Pressure 138/97 H 138/97 H Blood Pressure Mean 110 110 Pulse Ox 94 95 95 Oxygen Delivery Method Room Air Room Air Room Air Oxygen Flow Rate (L/min) 04/26/21 15:28 Temperature 97.4 F L Temperature Source Oral Pulse Rate 70 Respiratory Rate 17 Respiratory Effort Blood Pressure 91/69 Blood Pressure Mean 76 Pulse Ox 97 Oxygen Delivery Method Nasal Cannula Oxygen Flow Rate (L/min) 2 Weight Weight: 176 lb 5.917 oz Body Mass Index (BMI) 29.7 Physical Exam Const Constitutional Narrative: Awakens to noxious stimuli, confused Orientation / Consciousness: lethargic HEENT normocephalic Mouth: dry mucous membranes Eyes PERRL, EOMs intact bilaterally and conjunctivae normal Neck no lymphadenopathy Resp normal respiratory effort and clear to auscultation bilaterally Cardio regular rate, regular rhythm and no murmurs Peripheral Pulses: pulses 2+ throughout GI normal to inspection, nondistended, normoactive bowel sounds, non-tender and non-distended Extremity normal to inspection Skin no rashes or lesions noted Lesions: no lesions Rashes: no rashes Trauma: no lacerations or abrasions Neuro CN's II-XII intact bilaterally, no focal motor deficits, no sensory deficits noted and deep tendon reflexes 2+ bilaterally Psych Psych Narrative: Unable to assess due to encephalopathy Results Lab / Micro Data Result Diagrams: 04/26/21 14:10 04/26/21 13:50 Labs: Laboratory Results - last 24 hr 04/26/21 13:33: POC Glucose 72 04/26/21 13:50: Sodium 138, Potassium 3.3 L, Chloride 105, Carbon Dioxide 24.0, Anion Gap 9, BUN 16, Creatinine 0.84, Estim Creat Clear Calc 50.74, Est GFR (MDRD) Af Amer 85, Est GFR (MDRD) Non-Af 71, BUN/Creatinine Ratio 19.1, Glucose 245 H, Calcium 8.3 L 04/26/21 13:50: Total Bilirubin 0.50, Direct Bilirubin 0.13, AST 34, ALT 31, Alkaline Phosphatase 111, Total Protein 6.8, Albumin 2.9 L, Globulin 3.9, Lipase 131 04/26/21 13:59: POC Glucose 180 H 04/26/21 14:10: WBC 9.0, RBC 4.84, Hgb 13.4, Hct 41.4, MCV 85.5, MCH 27.7, MCHC 32.4, RDW Std Deviation 39.6, RDW Coeff of Scotty 12.7, Plt Count 339, MPV 10.1, Immature Gran % (Auto) 0.400, Neut % (Auto) 75.1 H, Lymph % (Auto) 16.1 L, [place] % (Auto) 6.9, Eos % (Auto) 1.2, Baso % (Auto) 0.3, Absolute Neuts (auto) 6.8, Absolute Lymphs (auto) 1.45, Nucleated RBC % 0 04/26/21 14:49: POC Glucose 65 L Micro: Microbiology 04/26/21 14:15 Nasal Secretion SARS-CoV-2 Antigen (Rapid) - Final Assessment & Plan Assessment/Plan (1) Hypoglycemia, coma: PLAN: 1. Metabolic encephalopathy secondary to hypoglycemia in the setting of type 2 diabetes mellitus-rule out other etiology as well given patient remains lethargic/encephalopathic with improvement in glucose. Brain CT unremarkable. Chest x-ray unremarkable. Obtain UA/urine culture. Initiate hypoglycemia protocol with every hour glucose checks. Currently on dextrose 10%. If patient subsequently becomes hyperglycemic, will need to transition. Speech therapy eval. PT/OT. N.p.o. pending improvement in lethargy. 2. COPD-no exacerbation. As needed albuterol aerosol. 3. CAD with history of stents-continue aspirin, statin, carvedilol, benazepril. 4. Hypertension-stable, continue benazepril, carvedilol. 5. Hyperlipidemia-continue statin. 6. CVA-on aspirin, statin. 7. Cognitive impairment, chronic- 8. Anxiety/depression-on escitalopram, hydroxyzine, buspirone. DVT prophylaxis- Lovenox sc This patient was seen by RENZO Medina under the supervision of Dr. Yuen. Documented by User: Dr. Elizabeth Yuen MD 04/26/21 16:02 HPI - General General Date of Admission: 04/26/21 [facility] Medical History Arthritis Diabetes Heart disease HTN (hypertension) Kidney disease Kidney stone Non-smoker Ovarian cancer SOB (shortness of breath) Stroke Home Medications aspirin 81 mg PO DAILY 07/25/19 [History Last Taken 04/05/21] albuterol sulfate 1 - 2 puff INHALATION Q4H PRN PRN 09/26/19 [History Last Taken 04/05/21] carvedilol 12.5 mg PO BID 09/26/19 [History Last Taken Unknown] ergocalciferol (vitamin D2) 50,000 unit PO QWEEK 09/26/19 [History Last Taken Unknown] hydroxyzine HCl 25 mg PO QHS PRN 09/26/19 [History Last Taken Unknown] Flovent HFA 2 puff INHALATION BID 04/05/21 [History Last Taken Unknown] buspirone 10 mg PO BID PRN 04/05/21 [History Last Taken Unknown] escitalopram oxalate 20 mg PO DAILY 04/05/21 [History Last Taken Unknown] famotidine 40 mg PO BID 04/05/21 [History Last Taken Unknown] ferrous sulfate 325 mg PO TID 04/05/21 [History Last Taken Unknown] furosemide 20 mg PO DAILY PRN 04/05/21 [History Last Taken Unknown] ondansetron HCl 4 mg PO Q8H PRN 04/05/21 [History Last Taken Unknown] rosuvastatin 10 mg PO DAILY 04/05/21 [History Last Taken Unknown] sodium chloride 1 spray INTRANASAL DAILY 04/05/21 [History Last Taken Unknown] benazepril 20 mg PO DAILY 04/26/21 [History Last Taken Unknown] insulin aspart U-100 [Novolog Flexpen U-100 Insulin] 18 unit SUBCUT TIDCM 04/26/21 [History Last Taken Unknown] insulin degludec [Tresiba FlexTouch U-100] 52 unit SUBCUT DAILY 04/26/21 [History Last Taken Unknown] metformin 500 mg PO DAILY 04/26/21 [History Last Taken Unknown] oxybutynin chloride 5 mg PO DAILY 04/26/21 [History Last Taken Unknown] Allergy/AdvReac Type Severity Reaction Status Date / Time latex Allergy Rash Verified 04/26/21 13:27 Penicillins Allergy Hives Verified 04/26/21 13:27 Family History Other Cancer Surgical History H/O heart surgery H/O knee surgery History of cholecystectomy History of coronary artery stent placement Social History (Updated 04/26/21 @ 14:[address] Tom Leary MD) household members: none Smoking Status: Never smoker alcohol intake: never Results Lab / Micro Data Result Diagrams: 04/26/21 14:10 04/26/21 13:50
[2021-04-26 16:00] LABS: Bedside Glucose 103 mg/dL (70-110)
[2021-04-26 16:00] LABS: Mucous, Urine 0 SEEN /hpf (<or=2+); Squamous Epithelial Cells - UA 0 SEEN /hpf (5-10)
[2021-04-26 16:05] LABS: Color, Urine Yellow (Yellow); Glucose, Dipstick 250 mg/dl (Normal); Ketone-Dipstick Negative (Negative); Leukocyte Esterase-Dipstick Negative /ul (Negative); Nitrite-Dipstick Negative (Negative); Occult Blood-Urine 25 /ul (Negative); Protein-Dipstick 500 mg/dl (Negative); Urine Bilirubin Dipstick Negative (Negative); Urine Clarity Clear (Clear); Urine Urobilinogen Normal (Normal)
--- NOTE | 2021-04-26 16:06 | EKG12_ITS ---
Test Reason : RHYTHMN CHANGE Blood Pressure : / mmHG Vent. Rate : 092 BPM Atrial Rate : 092 BPM P-R Int : 170 ms QRS Dur : 100 ms QT Int : 456 ms P-R-T Axes : 018 -39 204 degrees QTc Int : 563 ms Normal sinus rhythm Left axis deviation Septal infarct , age undetermined T wave abnormality, consider inferior ischemia T wave abnormality, consider anterolateral ischemia Prolonged QT Abnormal ECG When compared with ECG of 27-APR-2021 04:56, MANUAL COMPARISON REQUIRED, DATA IS UNCONFIRMED Confirmed by MARLEN CASEY, RITO ([id number]), visual effects editor GUIDO GOLD ([id number]) on 05/01/2021 9:50:00 AM Referred By: EARL Confirmed By:RITO GEE MD
[2021-04-26 16:21] LABS: Bacteria 1+ /hpf (None Seen)
[2021-04-26 16:22] LABS: Red Blood Cells-Urine 0-5 SEEN /hpf (0-5); White Blood Cells 0-5 SEEN /hpf (0-5)
[2021-04-26 16:30] LABS: Magnesium 1.5 mg/dL (1.6-2.6)
[2021-04-26 16:38] LABS: Hemoglobin A1c 13.3 % (3.8-5.6)
[2021-04-26] MEDS: 0.9% Normal Saline 1,000 ML 999 ML IV ×2 (16:50→17:52)
[2021-04-26] MEDS: Potassium Chloride 10mEq/100mL 10 MEQ/100 ML IV.SOLN. 100 MEQ IV BOLUS ×4 (16:57→19:58)
[2021-04-26] MEDS: Glucagon 1 MG/ML Syringe IV (17:08)
[2021-04-26 17:11] LABS: Bedside Glucose 154 mg/dL (70-110)
[2021-04-26 17:21] LABS: Allen Test Positive; Base Excess 0 mmol/L (-2 to +2); Blood Gas Specimen Type ART; O2 Delivery Device Room Air; PO2 65 mmHG (75-100); SITE L Radial; SO2 91 % (95-99); Total Carbon Dioxide 28 mmol/L; pH 7.33 (7.35-7.45)
--- NOTE | 2021-04-26 17:50 | RAD_ITS ---
EXAM: XR CHEST, 1 VIEW CLINICAL INDICATION: line placement -- line is in TECHNIQUE: Frontal view of the chest. This report was created using [employer] report generation technology. COMPARISON: 04/26/2021. FINDINGS: LUNGS AND PLEURAL SPACES: Unremarkable. No effusion. No pneumothorax. HEART: Unremarkable. Cardiac silhouette not enlarged. MEDIASTINUM: Central airways and mediastinal contour are unremarkable. BONES/JOINTS: Unremarkable. No displaced fracture. No destructive or sclerotic lesions. Visualized joint spaces are unremarkable. SOFT TISSUES: Unremarkable. TUBES, LINES AND DEVICES: Right internal jugular venous catheter terminates in the superior vena cava. RAD/CXR for Line Placement IMPRESSION: Right internal jugular venous catheter terminates in the superior vena cava. No pneumothorax. Electronically Signed: Lianne Gibbs MD at 18:18 EDT Tel , Service support ,
--- NOTE | 2021-04-26 18:14 | PCM.HOSP.N ---
Hospitalist Note Patient following transition to the floor with significant hypotension, MAP less than 65 and recurrent severe hypoglycemia requiring glucagon and repeat amp administration as well as increase of patient's dextrose drip. Patient still extremely encephalopathic, requested urine drug screen, ammonia as well as blood culture x2. Patient placed in Trendelenburg and to liter normal saline boluses run at the same time. Dr. Matt, precision agriculture specialist consulted. Central line note: Patient with ongoing hypotension despite aggressive IVF although somewhat improved with IV fluids. Given MAP transiently less than 65 per discussion with patient who is arousable enough to agree to a central line placement in case of necessity of pressor therapy, initiated protocol for central line placement. Right IJ region prepped and draped in standard fashion. US guidance used to obtain access, guidewire threaded without issue, central line catheter placed over guidewire and wire removed w/ cap placed. Lines again drawn and flushed without difficulty. Central line sutured in place. CXR ordered and reviewed with central line in appropriate place. Will transition dextrose over to central line. We will continue to closely monitor blood pressures and if remains significantly hypotensive will require initiation of norepinephrine and transition to the ICU. Procedures Hospitalists Procedures: [id number] Insert Non-tunnel CV Cath
[2021-04-26 18:26] LABS: Amphetamine Urine VISTA NEGATIVE (<1000 ng/mL); Barbiturate Urine VISTA NEGATIVE (< 200 ng/mL); Benzodiazepine Urine VISTA NEGATIVE (< 200 ng/mL); Cocaine Urine VISTA NEGATIVE (< 300 ng/mL); Ecstacy Urine VISTA NEGATIVE (< 500 ng/mL); Methadone Urine VISTA NEGATIVE (< 300 ng/mL); PCP Urine VISTA NEGATIVE (< 25 ng/mL); THC Urine VISTA NEGATIVE (< 50 ng/mL); Vista UDS pH Range 6
[2021-04-26] MEDS: 0.9% Saline Lock 10 ML Syringe IV ×2 (18:40→21:40)
[2021-04-26] MEDS: 0.9% Normal Saline 1,000 ML 100 ML IV (18:45)
[2021-04-26 18:52] LABS: Troponin-I HS 1038 pg/mL (3.0-54.0)
--- NOTE | 2021-04-26 18:53 | ECHOD_ITS ---
Reason For Study: NSTEMI Procedure This was a 2D Doppler, Color Flow transthoracic echocardiogram. The study was technically difficult. Exam performed portable in patient room. Left Ventricle The estimated ejection fraction is 15-20 %. There is evidence of diastolic dysfunction. The base of the LV is narayan well. Rest of the LV is severely hypokinetic to akinetic. This could represent Takotsubo cardiomyopathy. Right Ventricle Normal RV size. Normal systolic function. Atria Normal left atrium. Normal right atrium. Mitral Valve There is no mitral valve stenosis. Trivial mitral valve insufficiency. Tricuspid Valve There is no tricuspid stenosis. Trivial tricuspid valve insufficiency. Pulmonary artery systolic pressure is 30-35 mmHg. Aortic Valve Trisinus/trileaflet aortic valve. There is no aortic stenosis. No aortic valve insufficiency. Pulmonic Valve There is no pulmonic valvular stenosis. No pulmonic valve insufficiency. Great Vessels Normal aortic root. Pericardium/Pleural No pericardial effusion. Medication Diluted definity 3ml given slow IV push to enhance endocardial definition. Negative bubble study on previous echo. MMode/2D Measurements & Calculations LVIDd: 3.9 cm IVSd: 1.1 cm Ao root diam: 3.0 cm LVIDs: 2.3 cm LVPWd: 0.98 cm RVDd: 3.1 cm FS: 39.7 % LAV(MOD-bp): 43.3 ml LVAd ap4: 36.0 cm2 LVAd ap2: 31.3 cm2 LAV(MOD-bp) Indexed: 23.8 ml/m2 LVLd ap4: 8.2 cm LVLd ap2: 7.4 cm LAV(MOD-sp2): 49.7 ml EDV(MOD-sp4): 127.0 ml EDV(MOD-sp2): 106.7 ml LAV(MOD-sp4): 35.1 ml EDV(sp4-el): 133.7 ml EDV(sp2-el): 112.4 ml LVAs ap4: 27.7 cm2 LVAs ap2: 24.1 cm2 LVLs ap4: 7.4 cm LVLs ap2: 7.3 cm ESV(MOD-sp4): 84.6 ml ESV(MOD-sp2): 66.2 ml ESV(sp4-el): 87.9 ml ESV(sp2-el): 67.7 ml EF(MOD-sp4): 33.4 % EF(MOD-sp2): 38.0 % EF(sp4-el): 34.3 % SV(MOD-sp4): 42.4 ml SV(MOD-sp2): 40.5 ml SV(sp4-el): 45.8 ml LA A4 area: 14.4 cm2 LA dimension(2D): 3.8 cm RA A4 area: 11.5 cm2 Doppler Measurements & Calculations MV E max klaus: 44.7 cm/sec Lat Peak E' Klaus: 2.9 cm/sec Med Peak E' Klaus: 2.5 cm/sec MV A max klaus: 115.1 cm/sec E/E' lat: 15.4 E/E' med: 18.2 MV E/A: 0.39 Ao V2 max: 101.5 cm/sec LV V1 max: 70.8 cm/sec PA V2 max: 74.0 cm/sec Ao max P.1 mmHg LV V1 max P.0 mmHg TR max klaus: 258.2 cm/sec TR max P.7 mmHg ECHO/Echo Complete W/ Contrast Interpretation Summary The estimated ejection fraction is 15-20 %. There is evidence of diastolic dysfunction. The base of the LV is narayan well. Rest of the LV is severely hypokinetic to akinetic. This could represent Takotsubo cardiomyopathy. Trivial mitral valve insufficiency. Ordering Physician: Elizabeth Yuen Referring Physician: Martín Garcia Performed By: Alise Sutton RDCS
[2021-04-26 18:56] LABS: Bedside Glucose 195 mg/dL (70-110)
[2021-04-26 18:56] LABS: Bedside Glucose 176 mg/dL (70-110)
[2021-04-26 18:56] LABS: Bedside Glucose 186 mg/dL (70-110)
--- NOTE | 2021-04-26 18:56 | PCM.HOSP.N ---
Hospitalist Note Ammonia normal. EKG with SR with nonspecific changes. UDS negative. Bld Cx pending. Trop resulted 1038 consistent with Acute NSTEMI. Acute NSTEMI: Will maintain on a monitored bed, continue serial cardiac enzymes and EKGs. Magnesium level obtained upon admission w/ supplementation already administered. Will start therapeutic lovenox with dose now and change IN asa to dose now and continue. Cardiology consulted. FLP in AM. ECHO requested. Discussed case with Dr. Ching and agreed with these interventions.
[2021-04-26 19:51] LABS: Bedside Glucose 166 mg/dL (70-110)
[2021-04-26 20:41] LABS: Bedside Glucose 139 mg/dL (70-110)
[2021-04-26] MEDS: Sodium Chloride 19.25 MEQ in Dextrose 10%-Water 250 ML 50 MEQ IV (21:18)
[2021-04-26] MEDS: Enoxaparin 80 MG/0.8 ML Syringe SC (21:38)
[2021-04-26] MEDS: Famotidine 200 MG/20 ML MDV 20 MG in 0.9% Normal Saline (Pres. free 8 ML 300 MG IV (21:38)
[2021-04-26] MEDS: Aspirin 300 MG Suppository RC (21:47)
[2021-04-26 21:55] LABS: Bedside Glucose 157 mg/dL (70-110)
--- NOTE | 2021-04-26 21:58 | PCS.PANDOC ---
PANDEMIC DOCUMENTATION INITIATED: Date: 03/05/2021 Time: 190
[2021-04-26 22:00] LABS: Troponin-I HS 1215 pg/mL (3.0-54.0)
[2021-04-26 22:23] LABS: Reflex Lactate? Y
[2021-04-26 22:35] LABS: Bedside Glucose 190 mg/dL (70-110)
[2021-04-26 22:41] LABS: Lactic Acid 1.9 mmol/L (0.4-1.9)
[2021-04-26 23:36] LABS: Bedside Glucose 169 mg/dL (70-110)
[2021-04-27] VITALS (10 sets, daily range): BP systolic 91–120; BP diastolic 63–81; PULSE 70–94; RESP 13–18; TEMP 36.3–37.1; O2SAT 98–100
[2021-04-27 01:13] LABS: Troponin-I HS 1396 pg/mL (3.0-54.0)
[2021-04-27 01:35] LABS: Bedside Glucose 172 mg/dL (70-110)
[2021-04-27] MEDS: Sodium Chloride 19.25 MEQ in Dextrose 10%-Water 250 ML 50 MEQ IV ×2 (02:16→06:44)
[2021-04-27] MEDS: 0.9% Saline Lock 10 ML Syringe IV (02:18)
[2021-04-27] MEDS: 0.9% Normal Saline 1,000 ML 100 ML IV (03:31)
[2021-04-27 03:36] LABS: Bedside Glucose 199 mg/dL (70-110)
[2021-04-27 05:40] LABS: Bedside Glucose 175 mg/dL (70-110)
--- NOTE | 2021-04-27 05:55 | EKG12_ITS ---
Test Reason : LATHARGIC Blood Pressure : / mmHG Vent. Rate : 066 BPM Atrial Rate : 066 BPM P-R Int : 182 ms QRS Dur : 108 ms QT Int : 506 ms P-R-T Axes : 000 222 219 degrees QTc Int : 530 ms Normal sinus rhythm Prolonged QT Abnormal ECG Confirmed by MARLEN CASEY, RITO ([id number]), state editor GUIDO GOLD ([id number]) on 05/01/2021 9:54:36 AM Referred By: EARL Confirmed By:RITO GEE MD
[2021-04-27 06:17] LABS: Absolute Lymphocyte Count 2.12 X10^3/uL (0.83-4.51); Absolute Neutrophil Count 6.5 X10^3/uL (2.0-7.7); Basophil# 0.03 X10^3/uL; Basophil% 0.3 % (0-1); Eosinophil# 0.04 X10^3/uL; Eosinophils% 0.4 % (0-5); Hematocrit 37.3 % (37-47); Hemoglobin 12.1 g/dL (12.0-15.0); Lymphocyte # 2.12 X10^3/ul (0.83-4.51); Lymphocyte % 22.4 % (19-41); Mean Corp Hgb Conc 32.4 g/dL (32-36); Mean Corpuscular Hgb 28.1 pg (27.0-32.0); Mean Corpuscular Volume 86.7 fL (81-99); Mean Platelet Vol. 10.8 fl (6.2-12.0); Monocyte% 8.4 % (0-10); NRBC Flagged by Analyzer 0 % (0-5); Neutrophil # 6.45 X10^3/uL (2.7-7.7); Neutrophil % 68.2 % (47-70); Platelet Count 263 K/mm3 (150-450); RBC Distribution Width SD 40.7 fl (35.1-43.9); White Blood Count 9.5 K/mm3 (4.4-11.0)
[2021-04-27] MEDS: Enoxaparin 80 MG/0.8 ML Syringe SC ×2 (06:41→17:06)
[2021-04-27 06:56] LABS: ALB/GLOB Ratio 0.7 RATIO (0.9-2.4); AST(SGOT) 77 U/L (15-37); Alanine Aminotransfer ALT/SGPT 74 U/L (13-56); Albumin, Serum 2.5 g/dL (3.2-5.0); Alkaline Phosphatase 105 U/L (45-117); Anion Gap 9 (5-15); BUN 15 mg/dL (7-18); Calcium,Total 7.4 mg/dL (8.5-10.1); Chloride 106 mmol/L (98-107); Cholesterol 196 mg/dL (200); Creatinine, Serum 0.75 mg/dL (0.55-1.02); EST Glomerular Filtration Rate 80 mL/min (>60); Est Glom Filt Rate - Afr Amer 97 mL/min (>60); Estimated Creatinine Clearance 42.62 ml/min; Globulin 3.4 g/dL (2.2-4.2); Glucose 193 mg/dL (74-106); High Density Lipoprotein 66 mg/dL; Potassium 4.4 mmol/L (3.5-5.1); Protein, Total 5.9 g/dL (6.4-8.2); Sodium Level 136 mmol/L (136-145); Triglycerides 162 mg/dL; Very Low Density Lipoprotein 32 mg/dL (5-40)
[2021-04-27 07:40] LABS: Bedside Glucose 45 mg/dL (70-110)
[2021-04-27 07:40] LABS: Bedside Glucose 252 mg/dL (70-110)
[2021-04-27 07:40] LABS: Bedside Glucose 254 mg/dL (70-110)
--- NOTE | 2021-04-27 11:16 | CASEMGMT ---
RNCM readmission note: Patient was admitted 04/05-04/08/21 for DKA. H/o DMII and non-compliant with medications. Patient with h/o chronic cognitive impairment. Patient earlier this year and per last admission note- felt patient's was doing most of patient's medical care. Patient could not afford her medication and upon DC- [facility] assisted with medication. Patient was discharged with [facility] with addition SW and CCN referral. Re-Admitted 04/26/21 after family found patient sitting in driveway AMS, encephalopathy. Per EMS- patient blood sugar was 40 and treated per hypoglycemia. MU Galo
[2021-04-27 11:36] LABS: Bedside Glucose 279 mg/dL (70-110)
[2021-04-27] MEDS: Lisinopril 20 MG Tablet PO (11:59)
[2021-04-27] MEDS: Glucerna Shake 120 ML LIQUID PO (12:03)
--- NOTE | 2021-04-27 12:29 | PN.HOSP_ITS ---
Documented by User: Albertina Arroyo CENSUS TAKER, CENSUS TAKER-C 04/27/21 12:44 Subjective Subjective Patient seen and examined. Mental status significantly improved. Patient asking when she can return home. She denies chest pain, shortness of breath. Hypoglycemia resolved. Objective Data Objective Data Vital Signs: Vital Signs Temp Pulse Resp BP Pulse Ox 97.6 F L 85 14 120/72 98 04/27/21 06:21 04/27/21 06:53 04/27/21 06:21 04/27/21 06:21 04/27/21 06:21 Oxygen Flow Rate (L/min) 2 Oxygen Delivery Method Room Air Weight: 176 lb 5.917 oz Body Mass Index (BMI) 27.7 Intake & Output: Intake and Output for Last 24 Hours 04/25/21 04/26/21 04/27/21 23:59 23:59 23:59 Intake Total 3310.83 / 3310.83 931.66 / 931.66 Output Total 150 / 150 150 / 150 Balance 3160.83 / 3160.83 781.66 / 781.66 Lab / Micro Data Result Diagrams: 04/27/21 05:00 04/27/21 05:00 Labs: Laboratory Results - last 24 hr 04/26/21 13:30: Phosphorus 3.0, Magnesium 1.5 L 04/26/21 13:33: POC Glucose 72 04/26/21 13:50: Sodium 138, Potassium 3.3 L, Chloride 105, Carbon Dioxide 24.0, Anion Gap 9, BUN 16, Creatinine 0.84, Estim Creat Clear Calc 50.74, Est GFR (MDRD) Af Amer 85, Est GFR (MDRD) Non-Af 71, BUN/Creatinine Ratio 19.1, Glucose 245 H, Calcium 8.3 L 04/26/21 13:50: Total Bilirubin 0.50, Direct Bilirubin 0.13, AST 34, ALT 31, Alkaline Phosphatase 111, Total Protein 6.8, Albumin 2.9 L, Globulin 3.9, Lipase 131 04/26/21 13:59: POC Glucose 180 H 04/26/21 14:10: WBC 9.0, RBC 4.84, Hgb 13.4, Hct 41.4, MCV 85.5, MCH 27.7, MCHC 32.4, RDW Std Deviation 39.6, RDW Coeff of Scotty 12.7, Plt Count 339, MPV 10.1, Immature Gran % (Auto) 0.400, Neut % (Auto) 75.1 H, Lymph % (Auto) 16.1 L, [place] % (Auto) 6.9, Eos % (Auto) 1.2, Baso % (Auto) 0.3, Absolute Neuts (auto) 6.8, Absolute Lymphs (auto) 1.45, Nucleated RBC % 0 04/26/21 14:10: Hemoglobin A1c 13.3 H 04/26/21 14:49: POC Glucose 65 L 04/26/21 15:39: POC Glucose 103 04/26/21 15:56: Urine Color Yellow, Urine Clarity Clear, Urine pH 7.0, Ur Specific Richardson 1.010, Urine Protein 500 H, Urine Glucose (UA) 250 H, Urine Ketones Negative, Urine Occult Blood 25 H, Urine Nitrite Negative, Urine Bilirubin Negative, Urine Urobilinogen Normal, Ur Leukocyte Esterase Negative, Urine RBC 0-5 SEEN, Urine WBC 0-5 SEEN, Ur Squamous Epith Cells 0 SEEN, Urine Bacteria 1+, Urine Mucus 0 SEEN 04/26/21 15:56: Urine Opiates Screen NEGATIVE, Urine Methadone Screen NEGATIVE, Ur Barbiturates Screen NEGATIVE, Ur Phencyclidine Scrn NEGATIVE, Ur Amphetamines Screen NEGATIVE, U Methamphetamin-MDMA NEGATIVE, U Benzodiazepines Scrn NEGATIVE, Urine Cocaine Screen NEGATIVE, U Cannabinoids Screen NEGATIVE, Ur Drug Screen Comment 04/26/21 16:16: POC Glucose 45 L 04/26/21 16:31: POC Glucose 254 H 04/26/21 16:32: POC Glucose 252 H 04/26/21 17:01: POC Glucose 154 H 04/26/21 17:20: POC Glucose 176 H 04/26/21 17:50: POC Glucose 186 H 04/26/21 18:05: Ammonia 14.0 04/26/21 18:05: Lactic Acid 2.0 04/26/21 18:15: Troponin I High Sens 1038 H* 04/26/21 18:28: POC Glucose 195 H 04/26/21 19:46: POC Glucose 166 H 04/26/21 20:35: Troponin I High Sens 1215 H* 04/26/21 20:35: Lactic Acid 1.9 04/26/21 20:37: POC Glucose 139 H 04/26/21 21:34: POC Glucose 157 H 04/26/21 22:27: POC Glucose 190 H 04/26/21 23:28: POC Glucose 169 H 04/27/21 00:42: Troponin I High Sens 1396 H* 04/27/21 01:30: POC Glucose 172 H 04/27/21 03:30: POC Glucose 199 H 04/27/21 05:00: WBC 9.5, RBC 4.30, Hgb 12.1, Hct 37.3, MCV 86.7, MCH 28.1, MCHC 32.4, RDW Std Deviation 40.7, RDW Coeff of Scotty 13.0, Plt Count 263, MPV 10.8, Im mature Gran % (Auto) 0.300, Neut % (Auto) 68.2, Lymph % (Auto) 22.4, Greenbrier % (Auto) 8.4, Eos % (Auto) 0.4, Baso % (Auto) 0.3, Absolute Neuts (auto) 6.5, Absolute Lymphs (auto) 2.12, Nucleated RBC % 0 04/27/21 05:00: Sodium 136, Potassium 4.4, Chloride 106, Carbon Dioxide 21.0, Anion Gap 9, BUN 15, Creatinine 0.75, Estim Creat Clear Calc 42.62, Est GFR (MDRD) Af Amer 97, Est GFR (MDRD) Non-Af 80, BUN/Creatinine Ratio 20.0, Glucose 193 H, Calcium 7.4 L, Total Bilirubin 0.50, AST 77 H, ALT 74 H, Alkaline Phosphatase 105, Total Protein 5.9 L, Albumin 2.5 L, Globulin 3.4, Albumin/Globulin Ratio 0.7 L, Triglycerides 162, Cholesterol 196, LDL Cholesterol 98, VLDL Cholesterol 32, HDL Cholesterol 66 04/27/21 05:32: POC Glucose 175 H 04/27/21 11:02: POC Glucose 279 H Micro: Microbiology 04/26/21 14:15 Nasal Secretion SARS-CoV-2 Antigen (Rapid) - Final ABG Data ABG results: ABG 04/26/21 17:13 Specimen Type ART Sample Site L Radial pH 7.33 L Bicarbonate Actual 26.0 Total CO2 28 Base Excess 0 O2 Saturation 91 L ABG pCO2 49.0 H ABG pO2 65 L Alexis Test Positive O2 Delivery Device Room Air Radiography Diagnostic Testing: Radiology Impression Brain CT 04/26/21 15:06 IMPRESSION: Negative head/brain CT without intravenous contrast and unchanged since 02/24/2021. Electronically Signed: Humphrey Rodriguez MD at 15:31 EDT , Service support , Chest X-Ray 04/26/21 15:25 IMPRESSION: No radiographic evidence of acute cardiopulmonary disease and unchanged since 04/06/2021. Electronically Signed: Humphrey Rodriguez MD at 15:32 EDT , Service support , Chest X-Ray 04/26/21 17:50 IMPRESSION: Right internal jugular venous catheter terminates in the superior vena cava. No pneumothorax. Electronically Signed: Lianne Gibbs MD at 18:18 EDT Tel , Service support , Echocardiogram 04/26/21 18:53 Interpretation Summary The estimated ejection fraction is 15-20 %. There is evidence of diastolic dysfunction. The base of the LV is narayan well. Rest of the LV is severely hypokinetic to akinetic. This could represent Takotsubo cardiomyopathy. Trivial mitral valve insufficiency. ____ Ordering Physician: Elizabeth Yuen Referring Physician: Martín Garcia Performed By: Alise Sutton, ARIADNA Physical Exam Const alert, oriented x3 and no apparent distress Orientation / Consciousness: awake, oriented to person, oriented to place and oriented to time HEENT normocephalic and moist oral mucous membranes Eyes PERRL, EOMs intact bilaterally and conjunctivae normal Neck no lymphadenopathy Resp normal respiratory effort and clear to auscultation bilaterally Cardio regular rate, regular rhythm and no murmurs Peripheral Pulses: pulses 2+ throughout GI normal to inspection, nondistended, normoactive bowel sounds, non-tender and non-distended Extremity normal to inspection Skin no rashes or lesions noted Lesions: no lesions Rashes: no rashes Trauma: no lacerations or abrasions Neuro CN's II-XII intact bilaterally, no focal motor deficits, no sensory deficits noted and deep tendon reflexes 2+ bilaterally Psych mental status grossly normal and affect normal Assessment & Plan Assessment/Plan (1) Hypoglycemia, coma: (2) NSTEMI, initial episode of care: PLAN: 1. Metabolic encephalopathy secondary to severe hypoglycemia in the setting of type 2 diabetes mellitus-Brain CT unremarkable. Chest x-ray unremarkable. UA unremarkable. Mental status improved with resolve of hypoglycemia. D10 discontinued. Accu-Cheks with sliding scale insulin. Patient recently discharged on NovoLog 3 times daily as well as Tresiba. However, it appears patient was prescribed Relion 70/30 35 units twice daily 04/10/2021. Unclear if patient has been taking both of these regimens. Will request records from PCP office and also involve case management/social work as patient has a history of noncompliance related to medications including cost related concerns. Patient's recently who helped her manage her medications and due to cognitive impairment, suspect patient may be taking them incorrectly. 2. NSTEMI, severe systolic dysfunction-cardiology consulted. Echocardiogram demonstrates an EF of 15 to 20%, possible Takotsubo cardiomyopathy. Prior echo 2018 with EF 65%. On therapeutic Lovenox, aspirin, lisinopril, carvedilol. Further recommendations per cardiology. No evidence of acute failure. 3. COPD-no exacerbation. As needed albuterol aerosol. 4. CAD with history of stents-continue aspirin, statin, carvedilol, benazepril. 5. Hypertension-stable, continue benazepril, carvedilol. 6. Hyperlipidemia-continue statin. 7. CVA-on aspirin, statin. 8. Cognitive impairment, chronic-complicates care and ongoing medical management. Recommend follow-up with geriatric medicine for formal evaluation. 9. Anxiety/depression-on escitalopram, hydroxyzine, buspirone. DVT prophylaxis- Lovenox sc This patient was seen by RENZO Medina under the supervision of Dr. Mae. Documented by User: Dr. Mango Mae, DO 04/27/21 15:32 Subjective Subjective Wants central line out of her neck. Wants to go home. Objective Data Lab / Micro Data Result Diagrams: 04/27/21 05:00 04/27/21 05:00 Physical Exam Const Constitutional Narrative: alert. anxious. afebrile. Resp normal respiratory effort, no retractions, no use of accessory muscles and clear to auscultation bilaterally Cardio regular rate, regular rhythm, S1 normal heart sound and S2 normal heart sound GI normal to inspection, nondistended, normoactive bowel sounds, soft to palpation, non-tender and non-distended Extremity normal to inspection Neuro Sensorium / Orientation: awake and alert Assessment & Plan Assessment/Plan (1) Hypoglycemia, coma: (2) NSTEMI, initial episode of care: (3) Metabolic encephalopathy: PLAN: Patient seen and examined independently. Data and vitals reviewed. I agree with the above note by the nurse practitioner. 1. acute metabolic encephalopathy 2/2 hypoglycemia improved 2. hypoglycemia iatrogenic, likely unintentional Dextrose discontinued 3. 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 DM2 a1c 13.3 has been non-compliant with meds start glargine 35 units QHS tonight hold metformin and prandial given cognitive impairment, simplicity would be best approach at this time. EF 15-20% follow up with cardiology as outpt. Charges/Coding Visit Charges Inpatient E&M: 14485 Subs Hosp L2
--- NOTE | 2021-04-27 14:55 | PCM.CONS.C ---
Assessment & Plan Assessment/Plan (1) NSTEMI, initial episode of care: PLAN: Patient's troponin elevation does not appear to be a primary coronary event. It could be related to her Takotsubo cardiomyopathy and/or underlying other illness that was the reason for her presentation. At this time it is reasonable to treat her medically. She does not have any cardiac symptoms. It will be reasonable to repeat a 2D echo as an outpatient in about 4 to 6 weeks and if she has persistent LV dysfunction then consider coronary angiography. Patient follows with the [facility] for her cardiac issues. She was advised to follow-up with them after discharge. (2) LV dysfunction: PLAN: Continue KIRT, Coreg. Follow-up echo in 4 to 6 weeks as mentioned. Likely secondary to Takotsubo cardiomyopathy. Stress echo in 2018 revealed no significant wall motion abnormalities and was negative for ischemia. Patient is compensated from the LV dysfunction standpoint. HPI Consult Data Date of Consult: 04/27/21 HPI Narrative Reason for Consultation: Elevated troponin HPI Narrative: MARINA DALTON, is a 76 F who presents with altered mental status. Patient was found to have hypoglycemia and this was corrected. Eventually her mental status improved and she is currently oriented x3 with no symptoms. Her troponin went up to the low 1000s. She denies any chest pain, shortness of breath etc. Patient has history of CAD and had 2 stents at an outside hospital. At that time apparently she had chest discomfort. She had a 2D echo this admission which reveals wall motion abnormalities suggestive of Takotsubo cardiomyopathy. Patient has been going through a stressful time. Her of Covid in December and she has been having financial difficulties since then. Review of systems: All systems reviewed. All else is negative except that in HPI. FORMERLY [facility], 1928–1983 Medical History Arthritis Diabetes Heart disease HTN (hypertension) Kidney disease Kidney stone Non-smoker Ovarian cancer SOB (shortness of breath) Stroke Home Medications aspirin 81 mg PO DAILY 07/25/19 [History Last Taken 04/05/21] albuterol sulfate 1 - 2 puff INHALATION Q4H PRN PRN 09/26/19 [History Last Taken 04/05/21] carvedilol 12.5 mg PO BID 09/26/19 [History Last Taken Unknown] ergocalciferol (vitamin D2) 50,000 unit PO QWEEK 09/26/19 [History Last Taken Unknown] hydroxyzine HCl 25 mg PO QHS PRN 09/26/19 [History Last Taken Unknown] Flovent HFA 2 puff INHALATION BID 04/05/21 [History Last Taken Unknown] buspirone 10 mg PO BID PRN 04/05/21 [History Last Taken Unknown] escitalopram oxalate 20 mg PO DAILY 04/05/21 [History Last Taken Unknown] famotidine 40 mg PO BID 04/05/21 [History Last Taken Unknown] ferrous sulfate 325 mg PO TID 04/05/21 [History Last Taken Unknown] furosemide 20 mg PO DAILY PRN 04/05/21 [History Last Taken Unknown] ondansetron HCl 4 mg PO Q8H PRN 04/05/21 [History Last Taken Unknown] rosuvastatin 10 mg PO DAILY 04/05/21 [History Last Taken Unknown] sodium chloride 1 spray INTRANASAL DAILY 04/05/21 [History Last Taken Unknown] benazepril 20 mg PO DAILY 04/26/21 [History Last Taken Unknown] insulin aspart U-100 [Novolog Flexpen U-100 Insulin] 18 unit SUBCUT TIDCM 04/26/21 [History Last Taken Unknown] insulin degludec [Tresiba FlexTouch U-100] 52 unit SUBCUT DAILY 04/26/21 [History Last Taken Unknown] metformin 500 mg PO DAILY 04/26/21 [History Last Taken Unknown] oxybutynin chloride 5 mg PO DAILY 04/26/21 [History Last Taken Unknown] Allergy/AdvReac Type Severity Reaction Status Date / Time latex Allergy Rash Verified 04/26/21 13:27 Penicillins Allergy Hives Verified 04/26/21 13:27 Family History Other Cancer Surgical History H/O heart surgery H/O knee surgery History of cholecystectomy History of coronary artery stent placement Social History (Updated 04/26/21 @ 14:[address] Tom Leary MD) household members: none Smoking Status: Never smoker alcohol intake: never Physical Exam Const alert and oriented x3 Orientation / Consciousness: awake HEENT normocephalic Eyes no scleral icterus Resp normal respiratory effort Cardio regular rate and regular rhythm Extremity no pedal edema Skin no rashes or lesions noted Neuro oriented x3 Psych mental status grossly normal Charges/Coding Visit Charges Inpatient E&M: 50639 Init Hosp L2 Objective Data Vital Signs: Vital Signs Temp Pulse Resp BP Pulse Ox 97.3 F L 70 18 112/68 98 04/27/21 12:15 04/27/21 12:15 04/27/21 12:15 04/27/21 12:15 04/27/21 12:15 Oxygen Flow Rate (L/min) 2 Oxygen Delivery Method Room Air Weight: 176 lb 5.917 oz Body Mass Index (BMI) 27.7 Intake & Output: Intake and Output for Last 24 Hours 04/25/21 04/26/21 04/27/21 23:59 23:59 23:59 Intake Total 3310.83 / 3310.83 2411.66 / 2411.66 Output Total 150 / 150 400 / 400 Balance 3160.83 / 3160.83 / Lab / Micro Data Result Diagrams: 04/27/21 05:00 04/27/21 05:00 Labs: Laboratory Results - last 24 hr 04/26/21 13:30: Phosphorus 3.0, Magnesium 1.5 L 04/26/21 14:10: Hemoglobin A1c 13.3 H 04/26/21 14:49: POC Glucose 65 L 04/26/21 15:39: POC Glucose 103 04/26/21 15:56: Urine Color Yellow, Urine Clarity Clear, Urine pH 7.0, Ur Specific [employer] 1.010, Urine Protein 500 H, Urine Glucose (UA) 250 H, Urine Ketones Negative, Urine Occult Blood 25 H, Urine Nitrite Negative, Urine Bilirubin Negative, Urine Urobilinogen Normal, Ur Leukocyte Esterase Negative, Urine RBC 0-5 SEEN, Urine WBC 0-5 SEEN, Ur Squamous Epith Cells 0 SEEN, Urine Bacteria 1+, Urine Mucus 0 SEEN 04/26/21 15:56: Urine Opiates Screen NEGATIVE, Urine Methadone Screen NEGATIVE, Ur Barbiturates Screen NEGATIVE, Ur Phencyclidine Scrn NEGATIVE, Ur Amphetamines Screen NEGATIVE, U Methamphetamin-MDMA NEGATIVE, U Benzodiazepines Scrn NEGATIVE, Urine Cocaine Screen NEGATIVE, U Cannabinoids Screen NEGATIVE, Ur Drug Screen Comment 04/26/21 16:16: POC Glucose 45 L 04/26/21 16:31: POC Glucose 254 H 04/26/21 16:32: POC Glucose 252 H 04/26/21 17:01: POC Glucose 154 H 04/26/21 17:20: POC Glucose 176 H 04/26/21 17:50: POC Glucose 186 H 04/26/21 18:05: Ammonia 14.0 04/26/21 18:05: Lactic Acid 2.0 04/26/21 18:15: Troponin I High Sens 1038 H* 04/26/21 18:28: POC Glucose 195 H 04/26/21 19:46: POC Glucose 166 H 04/26/21 20:35: Troponin I High Sens 1215 H* 04/26/21 20:35: Lactic Acid 1.9 04/26/21 20:37: POC Glucose 139 H 04/26/21 21:34: POC Glucose 157 H 04/26/21 22:27: POC Glucose 190 H 04/26/21 23:28: POC Glucose 169 H 04/27/21 00:42: Troponin I High Sens 1396 H* 04/27/21 01:30: POC Glucose 172 H 04/27/21 03:30: POC Glucose 199 H 04/27/21 05:00: WBC 9.5, RBC 4.30, Hgb 12.1, Hct 37.3, MCV 86.7, MCH 28.1, MCHC 32.4, RDW Std Deviation 40.7, RDW Coeff of Scot[place] 13.0, Plt Count 263, MPV 10.8, Immature Gran % (Auto) 0.300, Neut % (Auto) 68.2, Lymph % (Auto) 22.4, [place] % (Auto) 8.4, Eos % (Auto) 0.4, Baso % (Auto) 0.3, Absolute Neuts (auto) 6.5, Absolute Lymphs (auto) 2.12, Nucleated RBC % 0 04/27/21 05:00: Sodium 136, Potassium 4.4, Chloride 106, Carbon Dioxide 21.0, Anion Gap 9, BUN 15, Creatinine 0.75, Estim Creat Clear Calc 42.62, Est GFR (MDRD) Af Amer 97, Est GFR (MDRD) Non-Af 80, BUN/Creatinine Ratio 20.0, Glucose 193 H, Calcium 7.4 L, Total Bilirubin 0.50, AST 77 H, ALT 74 H, Alkaline Phosphatase 105, Total Protein 5.9 L, Albumin 2.5 L, Globulin 3.4, Albumin/Globulin Ratio 0.7 L, Triglycerides 162, Cholesterol 196, LDL Cholesterol 98, VLDL Cholesterol 32, HDL Cholesterol 66 04/27/21 05:32: POC Glucose 175 H 04/27/21 11:02: POC Glucose 279 H Micro: Microbiology 04/26/21 14:15 Nasal Secretion SARS-CoV-2 Antigen (Rapid) - Final ABG Data ABG results: ABG 04/26/21 17:13 Specimen Type ART Sample Site L Radial pH 7.33 L Bicarbonate Actual 26.0 Total CO2 28 Base Excess 0 O2 Saturation 91 L ABG pCO2 49.0 H ABG pO2 65 L Alexis Test Positive O2 Delivery Device Room Air Cardiology Labs/Tests 04/26/21 13:30: Phosphorus 3.0, Magnesium 1.5 L 04/26/21 14:10: Hemoglobin A1c 13.3 H 04/26/21 15:56: Urine Color Yellow, Urine Clarity Clear, Urine pH 7.0, Ur Specific [employer] 1.010, Urine Protein 500 H, Urine Glucose (UA) 250 H, Urine Ketones Negative, Urine Occult Blood 25 H, Urine Nitrite Negative, Urine Bilirubin Negative, Urine Urobilinogen Normal, Ur Leukocyte Esterase Negative, Urine RBC 0-5 SEEN, Urine WBC 0-5 SEEN 04/26/21 17:13: pH 7.33 L, Bicarbonate Actual 26.0, Base Excess 0, O2 Saturation 91 L, ABG pCO2 49.0 H, ABG pO2 65 L, Alexis Test Positive 04/26/21 18:05: Lactic Acid 2.0 04/26/21 20:35: Lactic Acid 1.9 04/27/21 05:00: WBC 9.5, RBC 4.30, Hgb 12.1, Hct 37.3, MCV 86.7, MCH 28.1, MCHC 32.4, Plt Count 263, MPV 10.8, Immature Gran % (Auto) 0.300, Neut % (Auto) 68.2, Lymph % (Auto) 22.4, [place] % (Auto) 8.4, Eos % (Auto) 0.4, Baso % (Auto) 0.3, Absolute Neuts (auto) 6.5, Nucleated RBC % 0 04/27/21 05:00: Sodium 136, Potassium 4.4, Chloride 106, Carbon Dioxide 21.0, Anion Gap 9, BUN 15, Creatinine 0.75, Est GFR (MDRD) Af Amer 97, Est GFR (MDRD) Non-Af 80, BUN/Creatinine Ratio 20.0, Glucose 193 H, Calcium 7.4 L, Total Bilirubin 0.50, Triglycerides 162, Cholesterol 196, LDL Cholesterol 98, VLDL Cholesterol 32, HDL Cholesterol 66 Rhythm: EKG: ECHO: Stress Test: Cardiac Cath: PCI: CT Surgery: Holter monitor: EPS: PPM: CXR: Chest CT Scan: Radiography Diagnostic Testing: Radiology Impression Brain CT 04/26/21 15:06 IMPRESSION: Negative head/brain CT without intravenous contrast and unchanged since 02/24/2021. Electronically Signed: Humphrey Rodriguez MD at 15:31 EDT , Service support , Chest X-Ray 04/26/21 15:25 IMPRESSION: No radiographic evidence of acute cardiopulmonary disease and unchanged since 04/06/2021. Electronically Signed: Humphrey Rodriguez MD at 15:32 EDT , Service support , Chest X-Ray 04/26/21 17:50 IMPRESSION: Right internal jugular venous catheter terminates in the superior vena cava. No pneumothorax. Electronically Signed: Lianne Gibbs MD at 18:18 EDT Tel , Service support , Echocardiogram 04/26/21 18:53 Interpretation Summary The estimated ejection fraction is 15-20 %. There is evidence of diastolic dysfunction. The base of the LV is narayan well. Rest of the LV is severely hypokinetic to akinetic. This could represent Takotsubo cardiomyopathy. Trivial mitral valve insufficiency. Ordering Physician: Elizabeth Yuen Referring Physician: Martín Garcia Performed By: Alise Sutton RDCS
--- NOTE | 2021-04-27 16:06 | EKG12_ITS ---
Test Reason : AM EKG Blood Pressure : / mmHG Vent. Rate : 084 BPM Atrial Rate : 084 BPM P-R Int : 168 ms QRS Dur : 096 ms QT Int : 452 ms P-R-T Axes : 013 -47 -75 degrees QTc Int : 534 ms Normal sinus rhythm Left anterior fascicular block T wave abnormality, consider anterolateral ischemia Prolonged QT Abnormal ECG When compared with ECG of 26-APR-2021 16:59, MANUAL COMPARISON REQUIRED, DATA IS UNCONFIRMED Confirmed by MARLEN CASEY, RITO ([id number]), loan expeditor GUIDO GOLD ([id number]) on 05/01/2021 9:54:10 AM Referred By: HEDY Confirmed By:RITO GEE MD
[2021-04-27 16:21] LABS: Bedside Glucose 347 mg/dL (70-110)
[2021-04-27] MEDS: Insulin Lispro 100 UNIT/ML INSULN.PEN SC ×2 (17:07→21:05)
[2021-04-27] MEDS: Carvedilol 12.5 MG Tablet PO (17:08)
[2021-04-27] MEDS: Famotidine 20 MG Tablet PO (21:01)
[2021-04-27] MEDS: Atorvastatin Calcium 20 MG Tablet PO (21:01)
[2021-04-27 21:10] LABS: Bedside Glucose 389 mg/dL (70-110)
[2021-04-27] MEDS: Acetaminophen 325 MG Tablet 650 MG PO (21:20)
[2021-04-28 01:36] LABS: Bedside Glucose 183 mg/dL (70-110)
[2021-04-28 02:00] VITALS: BP 109/63; PULSE 78; RESP 18; TEMP 36.7; O2SAT 97
[2021-04-28 03:24] VITALS: PULSE 72
[2021-04-28] MEDS: Enoxaparin 80 MG/0.8 ML Syringe SC (06:17)
[2021-04-28 06:30] LABS: Bedside Glucose 130 mg/dL (70-110)
[2021-04-28 07:05] VITALS: PULSE 75
[2021-04-28 07:50] VITALS: O2SAT 95
[2021-04-28 08:06] VITALS: BP 122/68; PULSE 79; RESP 17; TEMP 36.4; O2SAT 96
[2021-04-28] MEDS: Aspirin E.C. 81 MG Tablet PO (08:21)
[2021-04-28] MEDS: Carvedilol 12.5 MG Tablet PO (08:21)
[2021-04-28] MEDS: Lisinopril 20 MG Tablet PO (08:22)
[2021-04-28] MEDS: Famotidine 20 MG Tablet PO (08:22)
--- NOTE | 2021-04-28 09:18 | CASEMGMT ---
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 KARINE HARRISON to room. She states her son lives w/her and her son-in-law lives nearby. She states she is still active w/[facility] but states the nurse was planning on coming to see her on and then discharge her from [facility]. KARINE HARRISON informed her, if needed, [facility] may be able continue services longer, if needed, since she has been readmitted and KARINE HARRISON encouraged pt to discuss this and any other concerns w/[facility]. She denies needing PT or OT. She states her son-in-law is planning on assisting w/med mgmt once [facility] has stopped. KARINE HARRISON reminded pt of [facility] referral made last admission and made aware if [facility] does not contact her after she is discharged from [facility] to contact [facility] to discuss their program and to see if they can assist. Pt provided w/[facility]'s contact info. Pt voices understanding. Pt denies having any concerns w/going home. Chino BALL RN, CM
--- NOTE | 2021-04-28 10:38 | PCM.DC ---
Discharge Instructions Diet Discharge Diet: Low fat / Low cholesterol and Carb Control Diet Activity Discharge Activity: Return to Normal Activity Dressing / Incision Call your doctor if you observe: Shortness of breath, Dizziness, Fainting spells and Chest pain Follow Up Care Test Results: Test results from this visit will be discussed in further detail at your follow-up appointment, if applicable. Discharge Plan Admission Admit Date/Time: 04/26/21 15:46 Primary Reason for Your Visit: Low blood glucose, severe systolic dysfunction (weak heart) Attending Provider: Mango Mae Primary Care Provider: Martín Garcia Consulting Providers: Jasmine Ching Discharge Orders/Prescriptions Prescriptions: Continued aspirin 81 MG tablet,chewable 81 mg PO DAILY RF: 0 carvedilol 12.5 MG tablet 12.5 mg PO BID RF: 0 hydroxyzine HCl 25 MG tablet 25 mg PO QHS PRN (Reason: Itching) RF: 0 ergocalciferol (vitamin D2) 50,000 UNIT capsule 50,000 unit PO QWEEK RF: 0 albuterol sulfate 1 INHALER inhaler 1 - 2 puff inhalation Q4H PRN PRN (Reason: Sob &/Or Wheezing) RF: 0 ondansetron HCl 4 mg tablet 4 mg PO Q8H PRN (Reason: Nausea) RF: 0 famotidine 40 mg Tablet 40 mg PO BID RF: 0 ferrous sulfate 325 mg (65 mg iron) Tablet 325 mg PO TID RF: 0 buspirone 10 mg tablet 10 mg PO BID PRN (Reason: Anxiety) RF: 0 Flovent HFA 110 mcg/actuation Hfa Aerosol Inhaler 2 puff INHALATION BID RF: 0 escitalopram oxalate 20 mg tablet 20 mg PO DAILY RF: 0 sodium chloride 0.65 % Aerosol,[place] 1 spray INTRANASAL DAILY RF: 0 rosuvastatin 10 mg tablet 10 mg PO DAILY RF: 0 furosemide 20 MG tablet 20 mg PO DAILY PRN (Reason: WT GAIN) RF: 0 oxybutynin chloride 5 mg tablet extended release 24hr 5 mg PO DAILY RF: 0 benazepril 20 mg tablet 20 mg PO DAILY RF: 0 metformin 500 mg Tablet Extended Release 24hr 500 mg PO DAILY RF: 0 Changed Tresiba FlexTouch U-100 100 unit/mL (3 mL) insulin pen 35 unit SUBCUT DAILY Qty: 0 RF: 0 Discontinued insulin aspart U-100 [Novolog Flexpen U-100 Insulin] 100 unit/mL (3 mL) insulin pen 18 unit SUBCUT TIDCM RF: 0 Referrals / Follow Up: Martín Garcia DO [Primary Care Provider] - See Referral Note (3-5 Days) Arlet Toledo NP, INDUSTRIAL ENGINEERING PROFESSOR-C [NON-STAFF] - In 1 Week Disposition Disposition (needs filled in before D/C Order can be placed): Home Health Service
--- NOTE | 2021-04-28 10:47 | DS.PCM_ITS ---
Documented by User: Albertina Arroyo NP, BUSINESS SUPPORT ADMINISTRATOR-C 04/28/21 10:59 Providers Date of Admission: 04/26/21 Date of Discharge: 04/28/21 Primary Care Physician: Dr. Martín Garcia, DO Consultations 04/26/21 18:55 Consult: Cardiology Routine Consulting Provider: Jasmine Ching Reason for Consult: NSTEMI, admitted with hypoglycemia, encephalopathy EMERGENT Consult: No MD Notified: Yes Date Notified: 04/26/21 Time Notified: 18:55 Method of Notification: called. 04/26/21 20:39 Consult: Cardiology Routine Consulting Provider: Jasmine Ching Reason for Consult: elevated trop EMERGENT Consult: No MD Notified: Yes Date Notified: 04/26/21 Time Notified: 18:58 Method of Notification: Verbal Reason For Visit: DEPRESSED LEVEL CONSCIOUS, INTRACTABLE Diagnosis Discharge Diagnosis (1) Hypoglycemia, coma: Status: Acute Code(s): E15 - Nondiabetic hypoglycemic coma (2) NSTEMI, initial episode of care: Status: Acute Code(s): I21.4 - Non-ST elevation (NSTEMI) myocardial infarction (3) Metabolic encephalopathy: Status: Acute Code(s): G93.41 - Metabolic encephalopathy Medications at Discharge Home Medications aspirin 81 mg PO DAILY 07/25/19 albuterol sulfate 1 - 2 puff INHALATION Q4H PRN PRN 09/26/19 carvedilol 12.5 mg PO BID 09/26/19 ergocalciferol (vitamin D2) 50,000 unit PO QWEEK 09/26/19 hydroxyzine HCl 25 mg PO QHS PRN 09/26/19 Flovent HFA 2 puff INHALATION BID 04/05/21 buspirone 10 mg PO BID PRN 04/05/21 escitalopram oxalate 20 mg PO DAILY 04/05/21 famotidine 40 mg PO BID 04/05/21 ferrous sulfate 325 mg PO TID 04/05/21 furosemide 20 mg PO DAILY PRN 04/05/21 ondansetron HCl 4 mg PO Q8H PRN 04/05/21 rosuvastatin 10 mg PO DAILY 04/05/21 sodium chloride 1 spray INTRANASAL DAILY 04/05/21 benazepril 20 mg PO DAILY 04/26/21 metformin 500 mg PO DAILY 04/26/21 oxybutynin chloride 5 mg PO DAILY 04/26/21 Tresiba FlexTouch U-100 35 unit SUBCUT DAILY #0 ml 04/28/21 Hospital Course Operations None Procedures 2-D Echocardiogram Summary of Care Provided Minutes Spent on Discharge: 35 Hospital Course: Patient is a 76-year-old female admitted 04/26/2021 due to altered mental status. 1. Metabolic encephalopathy secondary to severe hypoglycemia in the setting of type 2 diabetes mellitus-Brain CT unremarkable. Chest x-ray unremarkable. UA unremarkable. Mental status improved with resolve of hypoglycemia. Patient's recently who helped her manage her medications and due to cognitive impairment, suspect patient may be taking them incorrectly. Home health and community care network set up at discharge to help with medication management. Continue Metformin at discharge. Continue Tresiba 35 units daily to simplify regimen. Prandial insulin discontinued. Hemoglobin A1c 13.3%. Will need close follow-up at discharge. Follow-up with PCP within 1 week. Recommend endocrinology referral as well. 2. NSTEMI, severe systolic dysfunction-cardiology consulted during admission. Echocardiogram demonstrates an EF of 15 to 20%, possible Takotsubo cardiomyopathy. Prior echo 2018 with EF 65%. On aspirin, statin, lisinopril, carvedilol. No evidence of acute failure. Plan for continued medical management. Patient will need repeat echo as outpatient in 4 to 6 weeks and if she has persistent LV dysfunction, consider coronary angiography. [facility]. She would like to continue follow-up with them at discharge. 3. COPD-no exacerbation. As needed albuterol inhaler. 4. CAD with history of stents-continue aspirin, statin, carvedilol, benazepril. 5. Hypertension-stable, continue benazepril, carvedilol. 6. Hyperlipidemia-continue statin. 7. CVA-on aspirin, statin. 8. Cognitive impairment, chronic-complicates care and ongoing medical management. Recommend follow-up with geriatric medicine for formal evaluation. 9. Anxiety/depression-on escitalopram, hydroxyzine, buspirone. Physical Exam Const alert, oriented x3 and no apparent distress Orientation / Consciousness: awake, oriented to person, oriented to place and oriented to time HEENT normocephalic and moist oral mucous membranes Eyes PERRL, EOMs intact bilaterally and conjunctivae normal Neck no lymphadenopathy Resp normal respiratory effort and clear to auscultation bilaterally Cardio regular rate, regular rhythm and no murmurs Peripheral Pulses: pulses 2+ throughout GI normal to inspection, nondistended, normoactive bowel sounds, non-tender and non-distended Extremity normal to inspection Skin no rashes or lesions noted Lesions: no lesions Rashes: no rashes Trauma: no lacerations or abrasions Neuro CN's II-XII intact bilaterally, no focal motor deficits, no sensory deficits noted and deep tendon reflexes 2+ bilaterally Psych mental status grossly normal and affect normal Patient seen and examined prior to discharge. Physical assessment as noted above. Patient is stable for discharge with follow up recommendations as noted above. This patient was seen by RENZO Medina under the supervision of Dr. Mae. Weight / BMI Weight Weight: 170 lb 3.15 oz Body Mass Index (BMI) 27.7 ABG / Lab / Microbiology Data Result Diagrams: 04/27/21 05:00 04/27/21 05:00 Laboratory: Laboratory Results - last 24 hr 04/27/21 11:02: POC Glucose 279 H 04/27/21 16:08: POC Glucose 347 H 04/27/21 21:04: POC Glucose 389 H 04/28/21 01:30: POC Glucose 183 H 04/28/21 06:20: POC Glucose 130 H Microbiology: Microbiology 04/26/21 14:15 Nasal Secretion SARS-CoV-2 Antigen (Rapid) - Final Radiography Diagnostic Testing: Radiology Impression Echocardiogram 04/26/21 18:53 Interpretation Summary The estimated ejection fraction is 15-20 %. There is evidence of diastolic dysfunction. The base of the LV is narayan well. Rest of the LV is severely hypokinetic to akinetic. This could represent Takotsubo cardiomyopathy. Trivial mitral valve insufficiency. Ordering Physician: Elizabeth Yuen Referring Physician: Martín Garcia Performed By: Alise Sutton RDCS D/C Instructions Discharge Diet: Low fat / Low cholesterol and Carb Control Diet Call your doctor if you observe: Shortness of breath, Dizziness, Fainting spells and Chest pain Meaningful Use Info Meaningful Use Diagnoses (Choose all that apply): AMI AMI/Post PCI/Angioplasty Aspirin given w/in 24hrs of arrival?: Yes ASA at discharge?: Yes Statins at discharge?: Yes Jason/ARB at discharge?: Yes Beta Ria at discharge?: Yes Done w/ Acute IL measure.: Yes Discharge Plan Admission Admit Date/Time: 04/26/21 15:46 Primary Reason for Your Visit: Low blood glucose, severe systolic dysfunction (weak heart) Attending Provider: Mango Mae Primary Care Provider: Martín Garcia Consulting Providers: Jasmine Ching Discharge Orders/Prescriptions Prescriptions: Continued aspirin 81 MG tablet,chewable 81 mg PO DAILY RF: 0 carvedilol 12.5 MG tablet 12.5 mg PO BID RF: 0 hydroxyzine HCl 25 MG tablet 25 mg PO QHS PRN (Reason: Itching) RF: 0 ergocalciferol (vitamin D2) 50,000 UNIT capsule 50,000 unit PO QWEEK RF: 0 albuterol sulfate 1 INHALER inhaler 1 - 2 puff inhalation Q4H PRN PRN (Reason: Sob &/Or Wheezing) RF: 0 ondansetron HCl 4 mg tablet 4 mg PO Q8H PRN (Reason: Nausea) RF: 0 famotidine 40 mg Tablet 40 mg PO BID RF: 0 ferrous sulfate 325 mg (65 mg iron) Tablet 325 mg PO TID RF: 0 buspirone 10 mg tablet 10 mg PO BID PRN (Reason: Anxiety) RF: 0 Flovent HFA 110 mcg/actuation Hfa Aerosol Inhaler 2 puff INHALATION BID RF: 0 escitalopram oxalate 20 mg tablet 20 mg PO DAILY RF: 0 sodium chloride 0.65 % Aerosol,Boomer 1 spray INTRANASAL DAILY RF: 0 rosuvastatin 10 mg tablet 10 mg PO DAILY RF: 0 furosemide 20 MG tablet 20 mg PO DAILY PRN (Reason: WT GAIN) RF: 0 oxybutynin chloride 5 mg tablet extended release 24hr 5 mg PO DAILY RF: 0 benazepril 20 mg tablet 20 mg PO DAILY RF: 0 metformin 500 mg Tablet Extended Release 24hr 500 mg PO DAILY RF: 0 Changed Tresiba FlexTouch U-100 100 unit/mL (3 mL) insulin pen 35 unit SUBCUT DAILY Qty: 0 RF: 0 Discontinued insulin aspart U-100 [Novolog Flexpen U-100 Insulin] 100 unit/mL (3 mL) insulin pen 18 unit SUBCUT TIDCM RF: 0 Referrals / Follow Up: Martín Garcia DO [Primary Care Provider] - See Referral Note (3-5 Days) Arlet Toledo NP, BUSINESS SUPPORT ADMINISTRATOR-C [NON-STAFF] - In 1 Week Disposition Disposition (needs filled in before D/C Order can be placed): Home Health Service Documented by User: Dr. Mango Mae DO 04/28/21 15:13 Providers Date of Admission: 04/26/21 Reason For Visit: DEPRESSED LEVEL CONSCIOUS, INTRACTABLE Medications at Discharge Home Medications aspirin 81 mg PO DAILY 07/25/19 albuterol sulfate 1 - 2 puff INHALATION Q4H PRN PRN 09/26/19 carvedilol 12.5 mg PO BID 09/26/19 ergocalciferol (vitamin D2) 50,000 unit PO QWEEK 09/26/19 hydroxyzine HCl 25 mg PO QHS PRN 09/26/19 Flovent HFA 2 puff INHALATION BID 04/05/21 buspirone 10 mg PO BID PRN 04/05/21 escitalopram oxalate 20 mg PO DAILY 04/05/21 famotidine 40 mg PO BID 04/05/21 ferrous sulfate 325 mg PO TID 04/05/21 furosemide 20 mg PO DAILY PRN 04/05/21 ondansetron HCl 4 mg PO Q8H PRN 04/05/21 rosuvastatin 10 mg PO DAILY 04/05/21 sodium chloride 1 spray INTRANASAL DAILY 04/05/21 benazepril 20 mg PO DAILY 04/26/21 metformin 500 mg PO DAILY 04/26/21 oxybutynin chloride 5 mg PO DAILY 04/26/21 Tresiba FlexTouch U-100 35 unit SUBCUT DAILY #0 ml 04/28/21 Hospital Course Summary of Care Provided Minutes Spent on Discharge: 35 Hospital Course: Patient seen and examined independently. Data and vitals reviewed. I agree with the above note by the nurse practitioner. 76-year-old female presents with encephalopathy. Patient was found to have severe hypoglycemia. Patient was put on IV dextrose and blood sugars did improve. Patient was eventually placed on insulin glargine 35 units nightly. Patient was on 52 units of Tresiba at home as well as scheduled log with meals. There is concern the patient may not be administering the medications appropriately which may have led to this hypoglycemic episode. Previously, patient presented with DKA but now is on the other spectrum of hypoglycemic. 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 Patient advised to check her blood sugar twice daily and as needed. Patient did have transient hypotension likely related with dehydration that resolved with IV fluids no pressors were necessary. Patient did have a non-ST patient myocardial infarction this was a type II event with hypoglycemia. Patient also had findings on her echocardiogram consistent with Takotsubo cardiomyopathy. Patient will be medically managed. Physical Exam Resp normal respiratory effort, no retractions, no use of accessory muscles and clear to auscultation bilaterally Cardio regular rate, regular rhythm, S1 normal heart sound and S2 normal heart sound GI normal to inspection, nondistended, normoactive bowel sounds ABG / Lab / Microbiology Data Result Diagrams: 04/27/21 05:00 04/27/21 05:00 Discharge Plan Admission Admit Date/Time: 04/26/21 15:46 Primary Reason for Your Visit: Low blood glucose, severe systolic dysfunction (weak heart) Attending Provider: Mango Mae Primary Care Provider: Martín Garcia Consulting Providers: Jasmine Ching Discharge Orders/Prescriptions Prescriptions: Continued aspirin 81 MG tablet,chewable 81 mg PO DAILY RF: 0 carvedilol 12.5 MG tablet 12.5 mg PO BID RF: 0 hydroxyzine HCl 25 MG tablet 25 mg PO QHS PRN (Reason: Itching) RF: 0 ergocalciferol (vitamin D2) 50,000 UNIT capsule 50,000 unit PO QWEEK RF: 0 albuterol sulfate 1 INHALER inhaler 1 - 2 puff inhalation Q4H PRN PRN (Reason: Sob &/Or Wheezing) RF: 0 ondansetron HCl 4 mg tablet 4 mg PO Q8H PRN (Reason: Nausea) RF: 0 famotidine 40 mg Tablet 40 mg PO BID RF: 0 ferrous sulfate 325 mg (65 mg iron) Tablet 325 mg PO TID RF: 0 buspirone 10 mg tablet 10 mg PO BID PRN (Reason: Anxiety) RF: 0 Flovent HFA 110 mcg/actuation Hfa Aerosol Inhaler 2 puff INHALATION BID RF: 0 escitalopram oxalate 20 mg tablet 20 mg PO DAILY RF: 0 sodium chloride 0.65 % Aerosol,Boomer 1 spray INTRANASAL DAILY RF: 0 rosuvastatin 10 mg tablet 10 mg PO DAILY RF: 0 furosemide 20 MG tablet 20 mg PO DAILY PRN (Reason: WT GAIN) RF: 0 oxybutynin chloride 5 mg tablet extended release 24hr 5 mg PO DAILY RF: 0 benazepril 20 mg tablet 20 mg PO DAILY RF: 0 metformin 500 mg Tablet Extended Release 24hr 500 mg PO DAILY RF: 0 Changed Tresiba FlexTouch U-100 100 unit/mL (3 mL) insulin pen 35 unit SUBCUT DAILY Qty: 0 RF: 0 Discontinued insulin aspart U-100 [Novolog Flexpen U-100 Insulin] 100 unit/mL (3 mL) insulin pen 18 unit SUBCUT TIDCM RF: 0 Referrals / Follow Up: Martín Garcia DO [Primary Care Provider] - See Referral Note (3-5 Days) Arlet Toledo NP, BUSINESS SUPPORT ADMINISTRATOR-C [NON-STAFF] - In 1 Week Disposition Disposition (needs filled in before D/C Order can be placed): Home Health Service Charges/Coding Visit Charges Inpatient E&M: 04781 Disch Hosp
--- NOTE | 2021-05-14 10:47 | CCN.REFER ---
CCN Referral Patient is not a candidate of CCN due to declining students into her home.
== END 2021-04-28 11:26 | disposition home health service (06) | DRG 637 ==
LOC: ED 14:54 → PCU 15:43
PROVIDERS: Nurse Practitioner Family; Admitting Provider Family Medicine; Emergency Provider Emergency Medicine; PCP Student in an Organized Health Care Education/Training Program
DX: E11.649 Type 2 diabetes mellitus with hypoglycemia without coma (principal); G93.41 Metabolic encephalopathy; I21.A1 Myocardial infarction type 2; I51.81 Takotsubo syndrome; E86.0 Dehydration; I95.9 Hypotension, unspecified; Z23 Encounter for immunization; Z20.822 Contact with and (suspected) exposure to COVID-19; I25.10 Atherosclerotic heart disease of native coronary artery without angina pectoris; R41.89 Other symptoms and signs involving cognitive functions and awareness; J44.9 Chronic obstructive pulmonary disease, unspecified; I10 Essential (primary) hypertension; E78.5 Hyperlipidemia, unspecified; M19.90 Unspecified osteoarthritis, unspecified site; F32.A Depression, unspecified; F41.9 Anxiety disorder, unspecified; Z91.14 Patient's other noncompliance with medication regimen; Z79.84 Long term (current) use of oral hypoglycemic drugs; Z79.82 Long term (current) use of aspirin; Z79.899 Other long term (current) drug therapy; Z85.43 Personal history of malignant neoplasm of ovary; Z86.73 Personal history of transient ischemic attack (TIA), and cerebral infarction without residual deficits; Z95.5 Presence of coronary angioplasty implant and graft
CPT/HCPCS: 36415; 36600; 70450; 71045; 80048; 80053; 80061; 80076; 80307; 81001; 82140; 82803; 82962; 83036; 83605; 83690; 83735; 84100; 84484; 85025; 87040; 87426; 93005; 93306; 97162; 97166; 97802; 99285; G0008; J7030; Q9957; 90686; A4216; C1751; C8929; J1610; J2354; J3490

== ENCOUNTER 2021-06-08 10:47 | Observation (INO) | payer MEDICARE, OTHER, SELFPAY ==
[2021-06-08] VITALS (11 sets, daily range): BP systolic 116–153; BP diastolic 61–98; PULSE 55–74; RESP 16–25; TEMP 35–36.7; O2SAT 94–100; BMI 28.8; BMI 30.9
[2021-06-08] MEDS: Dextrose 50%-Water 25 GM/50 ML DISP.SYRIN IV ×3 (11:01→14:07)
--- NOTE | 2021-06-08 11:13 | NURSING ---
blood sugar reassessed after 25g of dextrose. blood sugar is now 207. Dr. Jones notified.
--- NOTE | 2021-06-08 11:20 | EKG12_ITS ---
Test Reason : DIZZY Blood Pressure : / mmHG Vent. Rate : 075 BPM Atrial Rate : 075 BPM P-R Int : 188 ms QRS Dur : 110 ms QT Int : 468 ms P-R-T Axes : 028 -41 132 degrees QTc Int : 522 ms Sinus rhythm with marked sinus arrhythmia Left axis deviation Left ventricular hypertrophy with repolarization abnormality Prolonged QT Abnormal ECG Confirmed by MARLEN CASEY, RITO ([id number]), editor farm journal [employer]UID[employer]OLD ([id number]) on 06/11/2021 1:14:06 PM Referred By: LAZARO/ROSAURA Confirmed By:RITO GEE MD
--- NOTE | 2021-06-08 11:21 | EDS_ITS ---
HPI History of Present Illness Chief Complaint: Weakness Informant: patient Narrative Narrative: Patient had a syncopal episode at [facility] today. She has been feeling malaised recently, and has complained of some dysuria. She has also had a nonproductive cough. No fevers or chills. She took her insulin, then left the house and went to [facility] and started eating. She got about [facility] through a meal and then she had a syncopal episode, EMS was called and her blood sugar was 92. Upon arrival here, she is awake more so, and her blood sugar is 55. She was given half amp of D50 IV. Upon recheck, it is just over 200. Patient feels a little groggy but otherwise okay. She denies any chest pain or shortness of breath but notes she does have a history of CAD with prior stent placed. She denies any exposure to COVID-19 that she knows of, and she was vaccinated prior. [facility] Medical History Arthritis Diabetes Heart disease HTN (hypertension) Kidney disease Kidney stone LV dysfunction Non-smoker Ovarian cancer SOB (shortness of breath) Stroke Type II diabetes mellitus Home Medications aspirin 81 mg PO DAILY 07/25/19 [History Last Taken 04/05/21] albuterol sulfate 1 - 2 puff INHALATION Q4H PRN PRN 09/26/19 [History Last Taken 04/05/21] carvedilol 12.5 mg PO BID 09/26/19 [History Last Taken Unknown] ergocalciferol (vitamin D2) 50,000 unit PO QWEEK 09/26/19 [History Last Taken Unknown] hydroxyzine HCl 25 mg PO QHS PRN 09/26/19 [History Last Taken Unknown] Flovent HFA 2 puff INHALATION BID 04/05/21 [History Last Taken Unknown] buspirone 10 mg PO BID PRN 04/05/21 [History Last Taken Unknown] escitalopram oxalate 20 mg PO DAILY 04/05/21 [History Last Taken Unknown] famotidine 40 mg PO BID 04/05/21 [History Last Taken Unknown] ferrous sulfate 325 mg PO TID 04/05/21 [History Last Taken Unknown] furosemide 20 mg PO DAILY PRN 04/05/21 [History Last Taken Unknown] ondansetron HCl 4 mg PO Q8H PRN 04/05/21 [History Last Taken Unknown] rosuvastatin 10 mg PO DAILY 04/05/21 [History Last Taken Unknown] sodium chloride 1 spray INTRANASAL DAILY 04/05/21 [History Last Taken Unknown] benazepril 20 mg PO DAILY 04/26/21 [History Last Taken Unknown] metformin 500 mg PO DAILY 04/26/21 [History Last Taken Unknown] oxybutynin chloride 5 mg PO DAILY 04/26/21 [History Last Taken Unknown] Tresiba FlexTouch U-100 35 unit SUBCUT DAILY #0 ml 04/28/21 [Rx Last Taken Unknown] Allergy/AdvReac Type Severity Reaction Status Date / Time latex Allergy Rash Verified 04/26/21 13:27 Penicillins Allergy Hives Verified 04/26/21 13:27 Family History Other Cancer Surgical History H/O heart surgery H/O knee surgery History of cholecystectomy History of coronary artery stent placement Social History household members: none Smoking Status: Never smoker alcohol intake: never ROS ROS ED Constitutional Constitutional ED: Reports malaise; Denies body ache(s), chills or fever(s) Eyes Eyes: Denies change in vision or diplopia ENT ENT ED: Denies rhinorrhea or sore throat Cardiovascular Cardiovascular: Denies chest pain or palpitations Respiratory/Chest Respiratory/Chest: Reports cough; Denies dyspnea Gastrointestinal Gastrointestinal: Denies abdominal pain, diarrhea, nausea or vomiting Genitourinary Genitourinary ED: Reports dysuria; Denies hematuria Musculoskeletal Musculoskeletal: Denies back pain or neck pain Integumentary Denies abscess or rash Neurologic Neurologic: Denies headache(s), paresthesias or weakness Psychiatric Psychiatric: Denies anxiety or suicidal thoughts EXAM Physical Exam Const Vital Signs: 06/08/21 10:48 06/08/21 11:03 06/08/21 11:06 Temperature 97.6 F L Temperature Source Oral Pulse Rate 70 74 Respiratory Rate 20 H 25 H Respiratory Pattern Normal Blood Pressure 138/98 H 153/85 H Blood Pressure Mean 111 107 Pulse Ox 95 94 Oxygen Delivery Method Room Air 06/08/21 11:20 06/08/21 13:00 06/08/21 13:22 Temperature 97.6 F L 95 F L Temperature Source Oral Temporal Pulse Rate 61 63 58 L Respiratory Rate 18 21 H 17 Respiratory Pattern Blood Pressure 129/62 H 132/63 H 116/65 Blood Pressure Mean 84 86 82 Pulse Ox 97 100 100 Oxygen Delivery Method Room Air Room Air Room Air 06/08/21 14:04 Temperature Temperature Source Pulse Rate 55 L Respiratory Rate 16 Respiratory Pattern Blood Pressure 127/61 H Blood Pressure Mean 83 Pulse Ox 100 Oxygen Delivery Method Room Air Positive well nourished and well developed Constitutional Narrative: Appears malaised but keenly alert in no acute distress General Appearance ED: well developed and NAD HEENT Reports moist mucous membranes normocephalic and atraumatic Eyes PERRL and EOMs intact bilaterally Neck full ROM and supple Resp normal respiratory effort and clear to auscultation bilaterally Cardio regular rate, regular rhythm and no murmurs Rate: Negative for tachycardic GI non-tender and non-distended Auscultation: normoactive bowel sounds Palpation: soft Back/Spine no CVA tenderness General Back: other FROM Extremity normal to inspection General Extremety ED: Negative for edema, pulses abnormal or tenderness General Extremity: Negative for edema or pulses abnormal Neuro oriented x3, CN's II-XII intact bilaterally and no sensory deficits noted Sensorium / Orientation: awake and alert Motor Exam: strength 5/5 throughout Skin no rashes or lesions noted and no wounds MDM MDM MDM Narrative Medical decision making narrative: Patient was given oral orange juice and other drinks/snacks/food, and despite this that she had 2 other hypoglycemic episodes while in the emergency department awaiting test results. They were both treated with D50 because she dropped despite eating. Once she was extremely lethargic and confused, which resolved with the IV D50. At this time she is safely in the 120s. I suspect her hypoglycemia is due to taking her insulin and then not finishing a meal, however her infection may be involved as well. Nurses and I tried to question about the possibility of her taking more than she was supposed to, and she seems too confused to answer the question. She can tell us how many units she took or at least meant to take. Her urine does indicate infection, on further questioning she stated that she had a UTI that was treated and now feels like it is back again, she finished the antibiotic sometime ago she cannot remember exactly, maybe a couple weeks. Her potassium is extremely low at 2.9, I started replacement of this and treated her urinary infection with IV Rocephin, sending blood and urine cultures. Her lactate returned within normal limits and her vital signs remained stable and unremarkable but she is very weak. Plan is for admission for further treatment Lab Data Attestation: I reviewed the patient's lab results. Labs: Laboratory Results - last 24 hr 06/08/21 06/08/21 06/08/21 10:55 10:55 10:55 WBC 6.7 RBC 4.75 Hgb 13.3 Hct 40.0 MCV 84.2 MCH 28.0 MCHC 33.3 RDW Std Deviation 39.0 RDW Coeff of Scotty 12.7 Plt Count 347 MPV 10.3 Immature Gran % (Auto) 0.200 Neut % (Auto) 56.1 Lymph % (Auto) 32.1 [place] % (Auto) 7.5 Eos % (Auto) 3.5 Baso % (Auto) 0.6 Absolute Neuts (auto) 3.7 Absolute Lymphs (auto) 2.14 Nucleated RBC % 0 PT 12.2 INR 1.0 APTT 31.8 Sodium 139 Potassium 2.9 L Chloride 103 Carbon Dioxide 29.0 Anion Gap 7 BUN 22 H Creatinine 0.82 Estim Creat Clear Calc 51.98 Est GFR (MDRD) Af Amer 87 Est GFR (MDRD) Non-Af 72 BUN/Creatinine Ratio 26.8 H Glucose 53 L Lactic Acid Calcium 9.1 Total Bilirubin 0.40 AST 14 L ALT 23 Alkaline Phosphatase 97 Troponin I High Sens 7 Total Protein 7.2 Albumin 3.3 Globulin 3.9 Albumin/Globulin Ratio 0.8 L Urine Color Urine Clarity Urine pH Ur Specific [place] Urine Protein Urine Glucose (UA) Urine Ketones Urine Occult Blood Urine Nitrite Urine Bilirubin Urine Urobilinogen Ur Leukocyte Esterase Urine RBC Urine WBC Ur Squamous Epith Cells Urine Bacteria Urine Mucus POC Glucose 06/08/21 06/08/21 06/08/21 11:47 11:47 12:47 WBC RBC Hgb Hct MCV MCH MCHC RDW Std Deviation RDW Coeff of Scotty Plt Count MPV Immature Gran % (Auto) Neut % (Auto) Lymph % (Auto) [place] % (Auto) Eos % (Auto) Baso % (Auto) Absolute Neuts (auto) Absolute Lymphs (auto) Nucleated RBC % PT INR APTT Sodium Potassium Chloride Carbon Dioxide Anion Gap BUN Creatinine Estim Creat Clear Calc Est GFR (MDRD) Af Amer Est GFR (MDRD) Non-Af BUN/Creatinine Ratio Glucose Lactic Acid 1.7 Calcium Total Bilirubin AST ALT Alkaline Phosphatase Troponin I High Sens Total Protein Albumin Globulin Albumin/Globulin Ratio Urine Color Yellow Urine Clarity Sl. Cloudy Urine pH 5.0 Ur Specific [place] 1.025 Urine Protein 15 H Urine Glucose (UA) 100 H Urine Ketones 5 H Urine Occult Blood 10 H Urine Nitrite Positive H Urine Bilirubin Negative Urine Urobilinogen Normal Ur Leukocyte Esterase 500 H Urine RBC 0-5 SEEN Urine WBC 25-50 SEEN Ur Squamous Epith Cells 0-5 SEEN Urine Bacteria 2+ Urine Mucus 0 SEEN POC Glucose 20 L* 06/08/21 06/08/21 06/08/21 13:12 13:39 13:58 WBC RBC Hgb Hct MCV MCH MCHC RDW Std Deviation RDW Coeff of Scotty Plt Count MPV Immature Gran % (Auto) Neut % (Auto) Lymph % (Auto) [place] % (Auto) Eos % (Auto) Baso % (Auto) Absolute Neuts (auto) Absolute Lymphs (auto) Nucleated RBC % PT INR APTT Sodium Potassium Chloride Carbon Dioxide Anion Gap BUN Creatinine Estim Creat Clear Calc Est GFR (MDRD) Af Amer Est GFR (MDRD) Non-Af BUN/Creatinine Ratio Glucose Lactic Acid Calcium Total Bilirubin AST ALT Alkaline Phosphatase Troponin I High Sens Total Protein Albumin Globulin Albumin/Globulin Ratio Urine Color Urine Clarity Urine pH Ur Specific [place] Urine Protein Urine Glucose (UA) Urine Ketones Urine Occult Blood Urine Nitrite Urine Bilirubin Urine Urobilinogen Ur Leukocyte Esterase Urine RBC Urine WBC Ur Squamous Epith Cells Urine Bacteria Urine Mucus POC Glucose 133 H 60 L 60 L 06/08/21 06/08/21 14:29 14:43 WBC RBC Hgb Hct MCV MCH MCHC RDW Std Deviation RDW Coeff of Scotty Plt Count MPV Immature Gran % (Auto) Neut % (Auto) Lymph % (Auto) [place] % (Auto) Eos % (Auto) Baso % (Auto) Absolute Neuts (auto) Absolute Lymphs (auto) Nucleated RBC % PT INR APTT Sodium Potassium Chloride Carbon Dioxide Anion Gap BUN Creatinine Estim Creat Clear Calc Est GFR (MDRD) Af Amer Est GFR (MDRD) Non-Af BUN/Creatinine Ratio Glucose Lactic Acid Calcium Total Bilirubin AST ALT Alkaline Phosphatase Troponin I High Sens Total Protein Albumin Globulin Albumin/Globulin Ratio Urine Color Urine Clarity Urine pH Ur Specific [place] Urine Protein Urine Glucose (UA) Urine Ketones Urine Occult Blood Urine Nitrite Urine Bilirubin Urine Urobilinogen Ur Leukocyte Esterase Urine RBC Urine WBC Ur Squamous Epith Cells Urine Bacteria Urine Mucus POC Glucose 149 H 117 H Radiography Diagnostic Testing: Clinical Impression(s) from Imaging Studies Chest X-Ray 06/08/21 11:55 IMPRESSION: Mild degree of vascular congestion. Electronically Signed: Varun Philippe MD at 12:18 EST , Service support , EKG Initial EKG: Attestation: I personally reviewed and interpreted this EKG as follows: Interpretation: No Acute Injury Pattern, Sinus Arrythmia and LAFB Comments: prolonged QTc Prior EKG tracings: available for review Prior: Unchanged Discharge Plan Dx/Rx/DC Orders Clinical Impression: Syncope, UTI (urinary tract infection), Hypokalemia, Hypoglycemia associated with type 2 diabetes mellitus Disposition Disposition: Acute Care Hospital [facility]
[2021-06-08 11:46] LABS: Absolute Lymphocyte Count 2.14 X10^3/uL (0.83-4.51); Absolute Neutrophil Count 3.7 X10^3/uL (2.0-7.7); Basophil# 0.04 X10^3/uL; Basophil% 0.6 % (0-1); Eosinophil# 0.23 X10^3/uL; Eosinophils% 3.5 % (0-5); Hemoglobin 13.3 g/dL (12.0-15.0); Lymphocyte # 2.14 X10^3/ul (0.83-4.51); Lymphocyte % 32.1 % (19-41); Mean Corp Hgb Conc 33.3 g/dL (32-36); Mean Corpuscular Volume 84.2 fL (81-99); Mean Platelet Vol. 10.3 fl (6.2-12.0); Monocyte% 7.5 % (0-10); NRBC Flagged by Analyzer 0 % (0-5); Neutrophil # 3.74 X10^3/uL (2.7-7.7); Neutrophil % 56.1 % (47-70); Platelet Count 347 K/mm3 (150-450); RBC Distribution Width CV 12.7 % (11.6-14.6); Red Blood Count 4.75 M/mm3 (4.2-5.4); White Blood Count 6.7 K/mm3 (4.4-11.0)
[2021-06-08 11:53] LABS: Mucous, Urine 0 SEEN /hpf (<or=2+)
[2021-06-08 11:54] LABS: Partial Thromboplast Time 31.8 Seconds (24.1-36.2); Prothrombin Time (Protime)PT. 12.2 SECONDS (11.7-14.9)
[2021-06-08 11:55] LABS: Color, Urine Yellow (Yellow); Glucose, Dipstick 100 mg/dl (Normal); Ketone-Dipstick 5 mg/dl (Negative); Leukocyte Esterase-Dipstick 500 /ul (Negative); Nitrite-Dipstick Positive (Negative); Occult Blood-Urine 10 /ul (Negative); Protein-Dipstick 15 mg/dl (Negative); Specific Gravity, Urine 1.025 (1.002-1.030); Urine Bilirubin Dipstick Negative (Negative); Urine Clarity Sl. Cloudy (Clear); Urine Urobilinogen Normal (Normal)
--- NOTE | 2021-06-08 11:55 | RAD_ITS ---
STUDY: X-RAY CHEST REASON FOR EXAM: Female, 76 years old. Dizziness and weakness. TECHNIQUE: Single AP portable view of the chest. COMPARISON: Comparison is made with prior study of 04/26/2021. FINDINGS: EKG electrodes are seen. Mild degree of vascular congestion. There is no demonstrated pleural abnormality. There is borderline cardiomegaly. Normal mediastinum and isreal. Normal visualized pulmonary arteries. There is atherosclerotic calcification of the aortic arch with tortuosity. There are diffuse degenerative changes of the visualized thoracic spine. Normal visualized ribs, clavicles, and shoulders. There is no demonstrated abnormality of the visualized soft tissue structures of the upper abdomen. RAD/Chest 1 View (Portable) IMPRESSION: Mild degree of vascular congestion. Electronically Signed: Varun Philippe MD at 12:18 EST , Service support ,
[2021-06-08 11:59] LABS: ALB/GLOB Ratio 0.8 RATIO (0.9-2.4); AST(SGOT) 14 U/L (15-37); Alanine Aminotransfer ALT/SGPT 23 U/L (13-56); Albumin, Serum 3.3 g/dL (3.2-5.0); Alkaline Phosphatase 97 U/L (45-117); Anion Gap 7 (5-15); BUN 22 mg/dL (7-18); BUN/Creat Ratio 26.8 RATIO (10-20); Calcium,Total 9.1 mg/dL (8.5-10.1); Chloride 103 mmol/L (98-107); Creatinine, Serum 0.82 mg/dL (0.55-1.02); EST Glomerular Filtration Rate 72 mL/min (>60); Est Glom Filt Rate - Afr Amer 87 mL/min (>60); Estimated Creatinine Clearance 51.98 ml/min; Globulin 3.9 g/dL (2.2-4.2); Glucose 53 mg/dL (74-106); Potassium 2.9 mmol/L (3.5-5.1); Protein, Total 7.2 g/dL (6.4-8.2); Sodium Level 139 mmol/L (136-145); Troponin-I HS 7 pg/mL (3.0-54.0)
[2021-06-08 12:02] LABS: Bacteria 2+ /hpf (None Seen); Red Blood Cells-Urine 0-5 SEEN /hpf (0-5); Squamous Epithelial Cells - UA 0-5 SEEN /hpf (5-10); White Blood Cells 25-50 SEEN /hpf (0-5)
[2021-06-08 12:19] LABS: Lactic Acid 1.7 mmol/L (0.4-1.9)
[2021-06-08 13:16] LABS: Bedside Glucose 133 mg/dL (70-110)
[2021-06-08 13:16] LABS: Bedside Glucose 20 mg/dL (70-110)
[2021-06-08] MEDS: Ceftriaxone 1 GM/50 ML BAG IV (13:49)
[2021-06-08] MEDS: Potassium Chloride 10mEq/100mL 10 MEQ/100 ML IV.SOLN. 100 MEQ IV BOLUS (13:56)
--- NOTE | 2021-06-08 14:05 | ED.RN ---
PT REPEAT BLOOD GLUCOSE 60. DR. KAPLAN INFORMED. PT ABLE TO DRINK ORANGE JUICE WITH 4 TABLE SPOONS OF SUGAR ADDED. PT C/O FEELING WEIRD. EDUCATION PROVIDED EDUCATION ABOUT BLOOD GLUCOSE. PT GIVEN AMP OF D50 THROUGH RTFA IV PER Joaquin TUCKER.
[2021-06-08 14:31] LABS: Bedside Glucose 60 mg/dL (70-110)
[2021-06-08 14:31] LABS: Bedside Glucose 60 mg/dL (70-110)
--- NOTE | 2021-06-08 14:31 | ED.RN ---
pts given a turkey sandwich, 1 cup of apple juice with 2 tablespoons of sugar. pt ate about 1/2 of the turkey sandwich. Blood sugar has been rechecked- 149. Dr. Jones Notified. No new orders at this time
[2021-06-08 14:35] LABS: Bedside Glucose 149 mg/dL (70-110)
[2021-06-08 14:45] LABS: Bedside Glucose 117 mg/dL (70-110)
--- NOTE | 2021-06-08 14:45 | ED.RN ---
pts blood sugar has been rechecked after 15 minutes. Blood sugar [address] Jones notified. No new orders at this time. Will recheck blood sugar in 15 minutes.
--- NOTE | 2021-06-08 14:45 | PCM.HP.STD ---
HPI - General HPI Narrative MARINA DALTON, is a 76 F with a PMh as outlined who presents via the ED on 06/08/2021 with a complaint of syncope. She hasnt been feeling well lately, and has been getting weaker. She took her insulin today and went to [employer] for a meal. She was eating at [employer] and started feeling weak and passed out. Her blood sugar was 92 per EMS, and she was given D5 ampoule. Her blood sugar in the ER was 55. She was again given half an amp of D50. Upon recheck sugar was over 200. Vitals in the ED were blood pressure of 127/61, pulse rate of 55 respiratory rate of 16 and she was saturating 100% on room air. CBC was unremarkable, and chemistry was significant for potassium of 2.9 and creatinine of 0.82. Urinalysis showed positive nitrites and 500 leukocyte esterase as well as 22-50 WBCs and 2+ bacteria. She has been admitted to be managed for hypokalemia as well as syncopal episode and UTI. Of note, EKG showed no acute ST changes. [facility] Medical History Arthritis Diabetes Heart disease HTN (hypertension) Kidney disease Kidney stone LV dysfunction Non-smoker Ovarian cancer SOB (shortness of breath) Stroke Type II diabetes mellitus Home Medications aspirin 81 mg PO DAILY 07/25/19 [History Last Taken 04/05/21] albuterol sulfate 1 - 2 puff INHALATION Q4H PRN PRN 09/26/19 [History Last Taken 04/05/21] carvedilol 12.5 mg PO BID 09/26/19 [History Last Taken Unknown] ergocalciferol (vitamin D2) 50,000 unit PO QWEEK 09/26/19 [History Last Taken Unknown] Flovent HFA 2 puff INHALATION BID 04/05/21 [History Last Taken Unknown] buspirone 10 mg PO BID PRN 04/05/21 [History Last Taken Unknown] escitalopram oxalate 20 mg PO DAILY 04/05/21 [History Last Taken Unknown] famotidine 40 mg PO BID 04/05/21 [History Last Taken Unknown] ferrous sulfate 325 mg PO TID 04/05/21 [History Last Taken Unknown] furosemide 20 mg PO DAILY PRN 04/05/21 [History Last Taken Unknown] rosuvastatin 10 mg PO DAILY 04/05/21 [History Last Taken Unknown] benazepril 20 mg PO DAILY 04/26/21 [History Last Taken Unknown] metformin 500 mg PO DAILY 04/26/21 [History Last Taken Unknown] Tresiba FlexTouch U-100 35 unit SUBCUT DAILY #0 ml 04/28/21 [Rx Last Taken Unknown] paroxetine HCl 10 mg PO DAILY 06/08/21 [History Last Taken Unknown] Allergy/AdvReac Type Severity Reaction Status Date / Time latex Allergy Rash Verified 04/26/21 13:27 Penicillins Allergy Hives Verified 04/26/21 13:27 Family History Other Cancer Surgical History H/O heart surgery H/O knee surgery History of cholecystectomy History of coronary artery stent placement Social History household members: none Smoking Status: Never smoker alcohol intake: never ROS Constitutional Constitutional: Reports fatigue, malaise and weakness; Denies anorexia or chills Eyes Eyes: Denies change in vision ENT HEENT: Denies dysphagia, headache(s) or sore throat Cardiovascular Cardiovascular: Reports syncope; Denies chest pain, dyspnea on exertion, edema, lightheadedness, orthopnea, palpitations, paroxysmal nocturnal dyspnea or rapid heart rate Respiratory/Chest Respiratory/Chest: Denies cough, dyspnea, excessive phlegm production, productive cough, shortness of breath at rest or shortness of breath with exertion Gastrointestinal Gastrointestinal: Denies abdominal pain, diarrhea, nausea or vomiting Genitourinary Genitourinary: Reports burning urination and dysuria; Denies urinary frequency, urinary hesitancy or urinary incontinence Musculoskeletal Musculoskeletal: Denies joint pain or joint stiffness Neurologic Neurologic: Denies abnormal gait, abnormal speech or confusion Psychiatric Psychiatric: Reports anxiety Endocrine Endocrinology: Denies change in body appearance Vital Signs Vital Signs Vital Signs: 06/08/21 10:48 06/08/21 11:03 06/08/21 11:06 Temperature 97.6 F L Temperature Source Oral Pulse Rate 70 74 Respiratory Rate 20 H 25 H Respiratory Pattern Normal Blood Pressure 138/98 H 153/85 H Blood Pressure Mean 111 107 Pulse Ox 95 94 Oxygen Delivery Method Room Air 06/08/21 11:20 06/08/21 13:00 06/08/21 13:22 Temperature 97.6 F L 95 F L Temperature Source Oral Temporal Pulse Rate 61 63 58 L Respiratory Rate 18 21 H 17 Respiratory Pattern Blood Pressure 129/62 H 132/63 H 116/65 Blood Pressure Mean 84 86 82 Pulse Ox 97 100 100 Oxygen Delivery Method Room Air Room Air Room Air 06/08/21 14:04 Temperature Temperature Source Pulse Rate 55 L Respiratory Rate 16 Respiratory Pattern Blood Pressure 127/61 H Blood Pressure Mean 83 Pulse Ox 100 Oxygen Delivery Method Room Air Weight Weight: 167 lb 15.876 oz Body Mass Index (BMI) 28.8 Physical Exam Const alert, oriented x3 and no apparent distress General Appearance: cooperative HEENT normocephalic, head/scalp atraumatic and hearing grossly normal bilaterally HEENT Narrative: dry mucosal membranes Eyes PERRL, EOMs intact bilaterally and conjunctivae normal Neck no lymphadenopathy Resp normal respiratory effort, no use of accessory muscles and clear to auscultation bilaterally Cardio regular rate, regular rhythm, S1 normal heart sound, S2 normal heart sound and no murmurs GI normal to inspection, nondistended, normoactive bowel sounds, soft to palpation, non-tender and non-distended Extremity normal to inspection, full ROM and no clubbing, cyanosis or edema Skin no rashes or lesions noted Neuro oriented x3, CN's II-XII intact bilaterally and moves all extremities Sensorium / Orientation: awake and alert Psych affect normal Results Lab / Micro Data Result Diagrams: 06/08/21 10:55 06/08/21 10:55 Labs: Laboratory Results - last 24 hr 06/08/21 10:55: WBC 6.7, RBC 4.75, Hgb 13.3, Hct 40.0, MCV 84.2, MCH 28.0, MCHC 33.3, RDW Std Deviation 39.0, RDW Coeff of Scotty 12.7, Plt Count 347, MPV 10.3, Immature Gran % (Auto) 0.200, Neut % (Auto) 56.1, Lymph % (Auto) 32.1, [place] % (Auto) 7.5, Eos % (Auto) 3.5, Baso % (Auto) 0.6, Absolute Neuts (auto) 3.7, Absolute Lymphs (auto) 2.14, Nucleated RBC % 0 06/08/21 10:55: PT 12.2, INR 1.0, APTT 31.8 06/08/21 10:55: Sodium 139, Potassium 2.9 L, Chloride 103, Carbon Dioxide 29.0, Anion Gap 7, BUN 22 H, Creatinine 0.82, Estim Creat Clear Calc 51.98, Est GFR (MDRD) Af Amer 87, Est GFR (MDRD) Non-Af 72, BUN/Creatinine Ratio 26.8 H, Glucose 53 L, Calcium 9.1, Total Bilirubin 0.40, AST 14 L, ALT 23, Alkaline Phosphatase 97, Troponin I High Sens 7, Total Protein 7.2, Albumin 3.3, Globulin 3.9, Albumin/Globulin Ratio 0.8 L 06/08/21 11:47: Lactic Acid 1.7 06/08/21 11:47: Urine Color Yellow, Urine Clarity Sl. Cloudy, Urine pH 5.0, Ur Specific [place] 1.025, Urine Protein 15 H, Urine Glucose (UA) 100 H, Urine Ketones 5 H, Urine Occult Blood 10 H, Urine Nitrite Positive H, Urine Bilirubin Negative, Urine Urobilinogen Normal, Ur Leukocyte Esterase 500 H, Urine RBC 0-5 SEEN, Urine WBC 25-50 SEEN, Ur Squamous Epith Cells 0-5 SEEN, Urine Bacteria 2+, Urine Mucus 0 SEEN 06/08/21 12:47: POC Glucose 20 L* 06/08/21 13:12: POC Glucose 133 H 06/08/21 13:39: POC Glucose 60 L 06/08/21 13:58: POC Glucose 60 L 06/08/21 14:29: POC Glucose 149 H Micro: Microbiology 06/08/21 10:55 Nasal Secretion SARS-CoV-2 Antigen (Rapid) - Final Radiology Impression Chest X-Ray 06/08/21 11:55 IMPRESSION: Mild degree of vascular congestion. Electronically Signed: Varun Philippe MD at 12:18 EST , Service support , Assessment & Plan Assessment/Plan (1) Syncope: (2) Hypokalemia: (3) Hypoglycemia associated with type 2 diabetes mellitus: PLAN: #Syncope Was most likely due to hypoglycemia as patient was found to be hypoglycemic on admission. UTI could also have played a factor Hydrate with IV fluid normal saline. Admit to PCU telemetry PT OT consult. Fall precautions. Check orthostatics. Initial troponin was negative. We will cycle. #UTI: Urinalysis positive for UTI. Urine cultures pending. Was started on IV ceftriaxone #Hypokalemia: Potassium is 2.9. Will check magnesium. Replace aggressively and trend. #Recurrent hypoglycemia in a known diabetic Patient's blood sugar was in the 90s when the EMS arrived at [facility] and was done in the 50s when she arrived here. Patient has been given D5 on pills. We will hold her long-acting insulin and oral hypoglycemics. Hydrate with D5 NS and check blood sugars. #Hypertension: On benazepril and carvedilol. #Depression: On buspirone and escitalopram #Hyperlipidemia: On rosuvastatin DVT prophylaxis: Lovenox CODE STATUS: Charges/Coding Visit Charges Inpatient E&M: 46715 Init Hosp L3
--- NOTE | 2021-06-08 14:53 | ED.RN ---
pt continues to pick off the turkey from the sandwich. pt has been given 1 tablespoon of peanut butter.
--- NOTE | 2021-06-08 15:00 | ED.RN ---
Addendum entered by Robert Pelayo 06/08/21 15:09: pts blood sugar has been reassessed at 1500. Blood sugar reads 121 at this time. RN continues to monitor patient. Original Note: pts blood
[2021-06-08 15:05] LABS: Bedside Glucose 121 mg/dL (70-110)
[2021-06-08 16:51] LABS: Bedside Glucose 145 mg/dL (70-110)
--- NOTE | 2021-06-08 16:53 | PCS.PANDOC ---
PANDEMIC DOCUMENTATION INITIATED: Date: 03/05/2021 Time: 190
[2021-06-08] MEDS: Dextrose 5%/0.9% NaCl 1,000 ML 125 ML IV (17:05)
[2021-06-08] MEDS: Ferrous Sulfate 325 MG Tablet PO (17:28)
[2021-06-08 18:07] LABS: Troponin-I HS 8 pg/mL (3.0-54.0)
[2021-06-08] MEDS: Carvedilol 12.5 MG Tablet PO (21:14)
[2021-06-08] MEDS: Famotidine 20 MG Tablet 40 MG PO (21:14)
[2021-06-08] MEDS: Atorvastatin Calcium 20 MG Tablet PO (21:14)
[2021-06-08] MEDS: Budesonide Respules 0.5 MG/2 ML AMPUL.NEB. INHALATION (21:34)
[2021-06-08] MEDS: Insulin Lispro 100 UNIT/ML INSULN.PEN SC (22:03)
[2021-06-08 22:16] LABS: Bedside Glucose 253 mg/dL (70-110)
[2021-06-09] VITALS (10 sets, daily range): BP systolic 142–164; BP diastolic 59–76; PULSE 68–73; RESP 16–20; TEMP 36.4–36.6; O2SAT 97–98
[2021-06-09] MEDS: Insulin Lispro 100 UNIT/ML INSULN.PEN SC ×4 (06:44→22:02)
[2021-06-09] MEDS: Budesonide Respules 0.5 MG/2 ML AMPUL.NEB. INHALATION ×2 (06:52→19:20)
[2021-06-09 07:01] LABS: Bedside Glucose 318 mg/dL (70-110)
[2021-06-09 08:19] LABS: Absolute Lymphocyte Count 1.57 X10^3/uL (0.83-4.51); Absolute Neutrophil Count 4.1 X10^3/uL (2.0-7.7); Basophil# 0.02 X10^3/uL; Basophil% 0.3 % (0-1); Eosinophil# 0.17 X10^3/uL; Eosinophils% 2.6 % (0-5); Hematocrit 36.8 % (37-47); Hemoglobin 12.1 g/dL (12.0-15.0); Lymphocyte # 1.57 X10^3/ul (0.83-4.51); Lymphocyte % 24.3 % (19-41); Mean Corp Hgb Conc 32.9 g/dL (32-36); Mean Corpuscular Hgb 27.9 pg (27.0-32.0); Mean Platelet Vol. 10.5 fl (6.2-12.0); Monocyte# 0.58 X10^3/uL; NRBC Flagged by Analyzer 0 % (0-5); Neutrophil # 4.08 X10^3/uL (2.7-7.7); Neutrophil % 63.3 % (47-70); Platelet Count 289 K/mm3 (150-450); RBC Distribution Width CV 12.7 % (11.6-14.6); RBC Distribution Width SD 39.1 fl (35.1-43.9); Red Blood Count 4.33 M/mm3 (4.2-5.4); White Blood Count 6.5 K/mm3 (4.4-11.0)
[2021-06-09] MEDS: Dextrose 5%/0.9% NaCl 1,000 ML 125 ML IV (08:36)
[2021-06-09 08:59] LABS: Anion Gap 6 (5-15); BUN 17 mg/dL (7-18); BUN/Creat Ratio 23.5 RATIO (10-20); Calcium,Total 8.5 mg/dL (8.5-10.1); Chloride 103 mmol/L (98-107); Creatinine, Serum 0.72 mg/dL (0.55-1.02); EST Glomerular Filtration Rate 84 mL/min (>60); Est Glom Filt Rate - Afr Amer 101 mL/min (>60); Estimated Creatinine Clearance 37.24 ml/min; Glucose 301 mg/dL (74-106); Potassium 3.9 mmol/L (3.5-5.1); Sodium Level 137 mmol/L (136-145); Thyroid Stim Hormone (TSH) 0.73 uIU/mL (0.358-3.74)
[2021-06-09] MEDS: Famotidine 20 MG Tablet 40 MG PO ×2 (09:00→21:54)
[2021-06-09] MEDS: Lisinopril 20 MG Tablet PO (09:00)
[2021-06-09] MEDS: Ferrous Sulfate 325 MG Tablet PO ×2 (09:01→16:30)
[2021-06-09] MEDS: Escitalopram Oxalate 20 MG Tablet PO (09:01)
[2021-06-09] MEDS: Carvedilol 12.5 MG Tablet PO ×2 (09:01→21:54)
[2021-06-09] MEDS: Enoxaparin 40 MG/0.4 ML Syringe SC (09:01)
[2021-06-09] MEDS: Aspirin 81 MG TAB.CHEW PO (09:01)
[2021-06-09] MEDS: Ceftriaxone 1 GM/50 ML BAG IV (09:03)
[2021-06-09 11:30] LABS: Bedside Glucose 396 mg/dL (70-110)
--- NOTE | 2021-06-09 15:51 | CASEMGMT ---
This RN CHRISTY to room with LATIF form, explanation done-pt voices understanding, and signs LATIF form. Original to chart and copy to pt. Pt voices no further questions/concerns/needs. [place] KARINE CM
--- NOTE | 2021-06-09 16:22 | PN.HOSP_ITS ---
Subjective Subjective Patient seen and examined this morning. She was watching cartoons and told me today that her creatinine day from 7 to 10 AM. She had no active complaints. She was able to recall what happened before admission and states she went to [facility] with her son. She had taken her regular dose of insulin but says she had not been feeling very hungry. She subsequently became lightheaded and dizzy and says she passed out. 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 She has no complaints today and feels well. Review of systems otherwise negative. She has made hemodynamically stable. Objective Data Objective Data Vital Signs: Vital Signs Temp Pulse Resp BP Pulse Ox 97.7 F L 71 18 164/76 H 97 06/09/21 08:55 06/09/21 15:00 06/09/21 08:55 06/09/21 08:55 06/09/21 08:55 Oxygen Delivery Method Room Air Weight: 163 lb 5.8 oz Body Mass Index (BMI) 30.9 Intake & Output: Intake and Output for Last 24 Hours 06/07/21 06/08/21 06/09/21 23:59 23:59 23:59 Intake Total 650 / 650 1269.17 / 1269.17 Output Total 800 / 800 Balance 650 / 650 469.17 / 469.17 Lab / Micro Data Result Diagrams: 06/09/21 07:26 06/09/21 07:26 Labs: Laboratory Results - last 24 hr 06/08/21 16:26: POC Glucose 145 H 06/08/21 17:06: Troponin I High Sens 8 06/08/21 21:57: POC Glucose 253 H 06/09/21 06:42: POC Glucose 318 H 06/09/21 07:26: WBC 6.5, RBC 4.33, Hgb 12.1, Hct 36.8 L, MCV 85.0, MCH 27.9, M CHC 32.9, RDW Std Deviation 39.1, RDW Coeff of Scotty 12.7, Plt Count 289, MPV 10.5, Immature Gran % (Auto) 0.500, Neut % (Auto) 63.3, Lymph % (Auto) 24.3, [place] % (Auto) 9.0, Eos % (Auto) 2.6, Baso % (Auto) 0.3, Absolute Neuts (auto) 4.1, Absolute Lymphs (auto) 1.57, Nucleated RBC % 0 06/09/21 07:26: Sodium 137, Potassium 3.9, Chloride 103, Carbon Dioxide 28.0, Anion Gap 6, BUN 17, Creatinine 0.72, Estim Creat Clear Calc 37.24, Est GFR (MDRD) Af Amer 101, Est GFR (MDRD) Non-Af 84, BUN/Creatinine Ratio 23.5 H, Glucose 301 H, Calcium 8.5, TSH 0.73 06/09/21 11:03: POC Glucose 396 H Micro: Microbiology 06/08/21 11:47 Urine, Catheterized Urine Culture - Preliminary Presumptive E. coli 06/08/21 10:55 Nasal Secretion SARS-CoV-2 Antigen (Rapid) - Final Physical Exam Const alert, oriented x3 and no apparent distress General Appearance: cooperative Exam Limitations: no limitations HEENT normocephalic, head/scalp atraumatic and hearing grossly normal bilaterally Head and Scalp: normocephalic Eyes PERRL, EOMs intact bilaterally and conjunctivae normal Neck no lymphadenopathy Resp normal respiratory effort, no retractions, no use of accessory muscles and clear to auscultation bilaterally Cardio regular rate, regular rhythm, S1 normal heart sound, S2 normal heart sound and no murmurs GI normal to inspection, nondistended, normoactive bowel sounds, soft to palpation, non-tender and non-distended Extremity normal to inspection, full ROM and no clubbing, cyanosis or edema Peripheral Pulses: Yes pulses 2+ throughout Skin no rashes or lesions noted Neuro oriented x3, CN's II-XII intact bilaterally and moves all extremities Sensorium / Orientation: awake and alert Psych affect normal Assessment & Plan Assessment/Plan (1) Syncope: (2) Hypokalemia: (3) Hypoglycemia associated with type 2 diabetes mellitus: PLAN: #Syncope * Likely due to hypoglycemia as well as UTI. * Patient feels much better now and is alert and oriented. * Troponins x3 were negative. * PT OT on board. Fall precautions. * #Hypoglycemia: * Blood sugars have improved. Will resume patient's home dose of insulin and watch blood sugars overnight. * Insulin sliding scale. Checks AC at bedtime. * #UTI: On IV ceftriaxone. Urine culture pending. #Hypokalemia: Resolved #Hypertension: On benazepril and carvedilol. #Depression: On buspirone and escitalopram #Hyperlipidemia: On rosuvastatin DVT prophylaxis: Lovenox Disposition: For likely discharge tomorrow. Charges/Coding Visit Charges Inpatient E&M: 25157 Subs Hosp L2
[2021-06-09 16:46] LABS: Bedside Glucose 371 mg/dL (70-110)
[2021-06-09] MEDS: Atorvastatin Calcium 20 MG Tablet PO (21:54)
[2021-06-09 23:06] LABS: Bedside Glucose 309 mg/dL (70-110)
[2021-06-10 00:10] LABS: Bedside Glucose 276 mg/dL (70-110)
[2021-06-10 04:00] VITALS: BP 164/70; PULSE 74; RESP 18; TEMP 36.6; O2SAT 96
[2021-06-10 04:24] VITALS: PULSE 64
[2021-06-10] MEDS: Insulin Lispro 100 UNIT/ML INSULN.PEN SC ×2 (06:28→10:59)
[2021-06-10 06:45] VITALS: PULSE 62
[2021-06-10 06:46] VITALS: PULSE 69; RESP 16
[2021-06-10] MEDS: Budesonide Respules 0.5 MG/2 ML AMPUL.NEB. INHALATION (06:46)
[2021-06-10 06:52] LABS: Absolute Lymphocyte Count 2.17 X10^3/uL (0.83-4.51); Absolute Neutrophil Count 2.5 X10^3/uL (2.0-7.7); Basophil# 0.05 X10^3/uL; Basophil% 0.9 % (0-1); Eosinophil# 0.23 X10^3/uL; Eosinophils% 4.1 % (0-5); Hematocrit 37.2 % (37-47); Hemoglobin 12.3 g/dL (12.0-15.0); Lymphocyte # 2.17 X10^3/ul (0.83-4.51); Mean Corp Hgb Conc 33.1 g/dL (32-36); Mean Corpuscular Hgb 27.8 pg (27.0-32.0); Mean Corpuscular Volume 84.2 fL (81-99); Mean Platelet Vol. 10.4 fl (6.2-12.0); Monocyte% 10.8 % (0-10); NRBC Flagged by Analyzer 0 % (0-5); Platelet Count 264 K/mm3 (150-450); RBC Distribution Width CV 12.2 % (11.6-14.6); RBC Distribution Width SD 37.4 fl (35.1-43.9); Red Blood Count 4.42 M/mm3 (4.2-5.4); White Blood Count 5.6 K/mm3 (4.4-11.0)
[2021-06-10 07:06] LABS: Bedside Glucose 234 mg/dL (70-110)
[2021-06-10 07:15] LABS: Anion Gap 5 (5-15); BUN 16 mg/dL (7-18); BUN/Creat Ratio 21.4 RATIO (10-20); Calcium,Total 8.8 mg/dL (8.5-10.1); Chloride 101 mmol/L (98-107); Creatinine, Serum 0.75 mg/dL (0.55-1.02); EST Glomerular Filtration Rate 81 mL/min (>60); Est Glom Filt Rate - Afr Amer 98 mL/min (>60); Estimated Creatinine Clearance 37.24 ml/min; Glucose 220 mg/dL (74-106); Potassium 3.9 mmol/L (3.5-5.1); Sodium Level 136 mmol/L (136-145)
[2021-06-10] MEDS: metFORMIN (XR) 500 MG Tablet PO (08:23)
[2021-06-10] MEDS: Aspirin 81 MG TAB.CHEW PO (08:23)
[2021-06-10] MEDS: Ferrous Sulfate 325 MG Tablet PO (08:23)
[2021-06-10 08:48] VITALS: BP 135/83; PULSE 73; RESP 16; TEMP 36.9; O2SAT 94
[2021-06-10] MEDS: Carvedilol 12.5 MG Tablet PO (08:54)
[2021-06-10] MEDS: Escitalopram Oxalate 20 MG Tablet PO (08:58)
[2021-06-10] MEDS: Enoxaparin 40 MG/0.4 ML Syringe SC (08:58)
[2021-06-10] MEDS: Famotidine 20 MG Tablet 40 MG PO (09:06)
[2021-06-10] MEDS: Lisinopril 20 MG Tablet PO (09:07)
[2021-06-10] MEDS: Ceftriaxone 1 GM/50 ML BAG IV (09:15)
[2021-06-10 09:16] LABS: Bedside Glucose 255 mg/dL (70-110)
[2021-06-10] MEDS: PARoxetine 10 MG Tablet PO (09:23)
[2021-06-10 11:05] LABS: Bedside Glucose 363 mg/dL (70-110)
--- NOTE | 2021-06-10 12:21 | DS.PCM_ITS ---
Providers Date of Admission: 06/08/21 Primary Care Physician: Dr. Martín Garcia DO Reason For Visit: syncope, uti, hypokalemia, recurrent hypoglycemia Diagnosis Discharge Diagnosis (1) Syncope: Status: Acute Code(s): R55 - Syncope and collapse (2) Hypokalemia: Status: Acute Code(s): E87.6 - Hypokalemia (3) Hypoglycemia associated with type 2 diabetes mellitus: Status: Acute Code(s): E11.649 - Type 2 diabetes mellitus with hypoglycemia without coma Medications at Discharge Home Medications aspirin 81 mg PO DAILY 07/25/19 albuterol sulfate 1 - 2 puff INHALATION Q4H PRN PRN 09/26/19 carvedilol 12.5 mg PO BID 09/26/19 ergocalciferol (vitamin D2) 50,000 unit PO TU 09/26/19 Flovent HFA 2 puff INHALATION BID 04/05/21 buspirone 10 mg PO BID PRN 04/05/21 escitalopram oxalate 20 mg PO DAILY 04/05/21 famotidine 40 mg PO BID 04/05/21 ferrous sulfate 325 mg PO BID 04/05/21 furosemide 20 mg PO BID PRN 04/05/21 rosuvastatin 10 mg PO DAILY 04/05/21 benazepril 20 mg PO DAILY 04/26/21 metformin 500 mg PO DAILY 04/26/21 Tresiba FlexTouch U-100 35 unit SUBCUT DAILY #0 ml 04/28/21 paroxetine HCl 10 mg PO DAILY 06/08/21 cefdinir 300 mg PO BID #10 cap 06/10/21 Hospital Course Operations None Procedures None Summary of Care Provided Minutes Spent on Discharge: 45 Hospital Course: MARINA DALTON, is a 76 F with a PMh as outlined who presents via the ED on 06/08/2021 with a complaint of syncope. She hasnt been feeling well lately, and has been getting weaker. She took her insulin today and went to [employer] for a meal. She was eating at [employer] and started feeling weak and passed out. Her blood sugar was 92 per EMS, and she was given D5 ampoule. Her blood sugar in the ER was 55. She was again given half an amp of D50. Upon recheck sugar was over 200. Vitals in the ED were blood pressure of 127/61, pulse rate of 55 respiratory rate of 16 and she was saturating 100% on room air. CBC was unremarkable, and chemistry was significant for potassium of 2.9 and creatinine of 0.82. Urinalysis showed positive nitrites and 500 leukocyte esterase as well as 22-50 WBCs and 2+ bacteria. She was admitted to be managed for hypokalemia as well as syncopal episode and UTI. Of note, EKG showed no acute ST changes. She was hydrated with IV fluids and started on IV ceftriaxone for UTI. Potassium was replaced aggressively. Her diabetes medications were held initially and she was placed on sliding scale. Patient felt comfortable status subsequently resolved and she felt much better. She said her sugars have been difficult to control and her PCP and supervisor computer operations have been adjusting her dose on outpatient basis. At home insulin dose was resumed and she did not have any further episodes of hypoglycemia in the hospital. Patient said the day she went out with her son, she had not been feeling hungry and did not feel well and so did not really eat much but took her insulin and this could have precipitated the hyperglycemia. Patient remained stable and was discharged on 06/10/2021. Urine cultures grew E. coli. She was discharged home on p.o. cefdinir 300 mg twice daily for 5 days. She was counseled to maintain a diabetic diet and to be compliant with her insulin. She is to follow-up with her primary care doctor and supervisor computer operations in 1 to 2 weeks. Patient seen and examined prior to discharge. She had no complaints and felt well. Review of systems otherwise negative. Labs and vitals reviewed. Home medication reviewed and reconciled. Physical Exam Const alert, oriented x3 and no apparent distress General Appearance: cooperative Exam Limitations: no limitations HEENT normocephalic, head/scalp atraumatic and hearing grossly normal bilaterally Eyes PERRL, EOMs intact bilaterally and conjunctivae normal Neck no lymphadenopathy Resp normal respiratory effort, no retractions, no use of accessory muscles and clear to auscultation bilaterally Cardio regular rate, regular rhythm, S1 normal heart sound, S2 normal heart sound and no murmurs GI normal to inspection, nondistended, normoactive bowel sounds, soft to palpation, non-tender and non-distended Extremity normal to inspection, full ROM and no clubbing, cyanosis or edema Skin no rashes or lesions noted Neuro oriented x3, CN's II-XII intact bilaterally and moves all extremities Sensorium / Orientation: awake and alert Psych affect normal Weight / BMI Weight Weight: 163 lb 5.8 oz Body Mass Index (BMI) 30.9 ABG / Lab / Microbiology Data Result Diagrams: 06/10/21 06:34 06/10/21 06:34 Laboratory: Laboratory Results - last 24 hr 06/09/21 16:27: POC Glucose 371 H 06/09/21 22:00: POC Glucose 309 H 06/10/21 00:02: POC Glucose 276 H 06/10/21 06:25: POC Glucose 234 H 06/10/21 06:34: WBC 5.6, RBC 4.42, Hgb 12.3, Hct 37.2, MCV 84.2, MCH 27.8, MCHC 33.1, RDW Std Deviation 37.4, RDW Coeff of Scotty 12.2, Plt Count 264, MPV 10.4, Immature Gran % (Auto) 0.200, Neut % (Auto) 45.0 L, Lymph % (Auto) 39.0, [place] % (Auto) 10.8 H, Eos % (Auto) 4.1, Baso % (Auto) 0.9, Absolute Neuts (auto) 2.5, Absolute Lymphs (auto) 2.17, Nucleated RBC % 0 06/10/21 06:34: Sodium 136, Potassium 3.9, Chloride 101, Carbon Dioxide 30.0, Anion Gap 5, BUN 16, Creatinine 0.75, Estim Creat Clear Calc 37.24, Est GFR (MDRD) Af Amer 98, Est GFR (MDRD) Non-Af 81, BUN/Creatinine Ratio 21.4 H, Glucose 220 H, Calcium 8.8 06/10/21 09:04: POC Glucose 255 H 06/10/21 10:59: POC Glucose 363 H Microbiology: Microbiology 06/08/21 11:47 Urine, Catheterized Urine Culture - Final Presumptive E. coli 06/08/21 10:55 Nasal Secretion SARS-CoV-2 Antigen (Rapid) - Final D/C Instructions Discharge Diet: Low fat / Low cholesterol Discharge Activity: Return to Normal Activity Weight Bearing Status: Weight bearing as tolerated Call your doctor if you observe: Fever of 101 or Higher, Shortness of breath, Swelling in the ankles and - (low blood sugars) Meaningful Use Info Meaningful Use Diagnoses (Choose all that apply): None applicable Discharge Plan Admission Admit Date/Time: 06/08/21 15:11 Primary Reason for Your Visit: hypoglycemia, UTI, syncope Attending Provider: Daniela Castillo Primary Care Provider: Martín Garcia Instructions Patient Instructions: Hypoglycemia (Low Blood Sugar), Causes of Syncope, Hypoglycemia Steps Discharge Orders/Prescriptions Prescriptions: New cefdinir 300 mg capsule 300 mg PO BID Qty: 10 RF: 0 Continued aspirin 81 MG tablet,chewable 81 mg PO DAILY RF: 0 carvedilol 12.5 MG tablet 12.5 mg PO BID RF: 0 ergocalciferol (vitamin D2) 50,000 UNIT capsule 50,000 unit PO TU RF: 0 albuterol sulfate 1 INHALER inhaler 1 - 2 puff inhalation Q4H PRN PRN (Reason: Sob &/Or Wheezing) RF: 0 famotidine 40 mg Tablet 40 mg PO BID RF: 0 ferrous sulfate 325 mg (65 mg iron) Tablet 325 mg PO BID RF: 0 buspirone 10 mg tablet 10 mg PO BID PRN (Reason: Anxiety) RF: 0 Flovent HFA 110 mcg/actuation Hfa Aerosol Inhaler 2 puff INHALATION BID RF: 0 escitalopram oxalate 20 mg tablet 20 mg PO DAILY RF: 0 rosuvastatin 10 mg tablet 10 mg PO DAILY RF: 0 furosemide 20 MG tablet 20 mg PO BID PRN (Reason: WT GAIN) RF: 0 benazepril 20 mg tablet 20 mg PO DAILY RF: 0 metformin 500 mg Tablet Extended Release 24hr 500 mg PO DAILY RF: 0 Tresiba FlexTouch U-100 100 unit/mL (3 mL) insulin pen 35 unit SUBCUT DAILY Qty: 0 RF: 0 paroxetine HCl 10 mg tablet 10 mg PO DAILY RF: 0 Referrals / Follow Up: Martín Garcia DO [Primary Care Provider] - Within 2 Weeks Disposition Disposition (needs filled in before D/C Order can be placed): Home, Self Care Charges/Coding Visit Charges Inpatient E&M: 55480 Disch Hosp
[2021-06-12 09:05] LABS: Bedside Glucose 55 mg/dL (70-110)
[2021-06-12 09:05] LABS: Bedside Glucose 207 mg/dL (70-110)
== END 2021-06-10 14:01 | disposition home or self-care (01) ==
LOC: ED 14:56 → PCU 15:06
PROVIDERS: Admitting Provider Student in an Organized Health Care Education/Training Program; Emergency Provider Emergency Medicine; PCP Student in an Organized Health Care Education/Training Program; Visit Provider Student in an Organized Health Care Education/Training Program
DX: R55 Syncope and collapse (principal); E11.649 Type 2 diabetes mellitus with hypoglycemia without coma; E87.6 Hypokalemia; I25.10 Atherosclerotic heart disease of native coronary artery without angina pectoris; I10 Essential (primary) hypertension; M19.90 Unspecified osteoarthritis, unspecified site; Z79.899 Other long term (current) drug therapy; Z79.82 Long term (current) use of aspirin; Z79.51 Long term (current) use of inhaled steroids; Z79.4 Long term (current) use of insulin; N39.0 Urinary tract infection, site not specified; F32.A Depression, unspecified; E78.5 Hyperlipidemia, unspecified; B96.20 Unspecified Escherichia coli [E. coli] as the cause of diseases classified elsewhere
CPT/HCPCS: 36415; 71045; 80048; 80053; 81001; 82962; 83605; 84443; 84484; 85025; 85610; 85730; 87040; 87086; 87088; 87186; 87426; 93005; 94640; 96361; 96365; 96366; 96367; 96372; 96375; 96376; 97162; 97166; 99218; 99285; J7030; J7040; A4216; G0378

== ENCOUNTER 2021-07-11 08:32 | Emergency (ER) | payer MEDICARE, OTHER, SELFPAY ==
[2021-07-11 08:35] VITALS: BP 138/86; PULSE 89; RESP 17; TEMP 36.4; O2SAT 96; BMI 29.4
--- NOTE | 2021-07-11 08:48 | RAD_ITS ---
STUDY: X-RAY CHEST REASON FOR EXAM: Female, 76 years old. Trauma with contusion left chest wall TECHNIQUE: PA and lateral views of the chest. COMPARISON: Comparison is made with prior study dated 06/08/2021. FINDINGS: The lungs are clear and expanded. There is no demonstrated pleural abnormality. Normal size heart. Normal mediastinum and isreal. Normal visualized pulmonary arteries. Normal visualized aortic arch and descending thoracic aorta. There are diffuse degenerative changes of the visualized thoracic spine. Normal visualized ribs, clavicles, and shoulders. There is no demonstrated abnormality of the visualized soft tissue structures of the upper abdomen. RAD/Chest PA and Lateral IMPRESSION: No acute abnormality is seen. Electronically Signed: Varun Philippe MD at 9:33 EST , Service support ,
--- NOTE | 2021-07-11 08:48 | EKG12_ITS ---
Test Reason : FALL Blood Pressure : / mmHG Vent. Rate : 087 BPM Atrial Rate : 087 BPM P-R Int : 166 ms QRS Dur : 104 ms QT Int : 386 ms P-R-T Axes : 003 -39 111 degrees QTc Int : 464 ms Normal sinus rhythm Left axis deviation Left ventricular hypertrophy with repolarization abnormality Abnormal ECG When compared with ECG of 08-JUN-2021 10:57, T wave inversion no longer evident in Anterior leads QT has shortened Confirmed by MARLEN CASEY, RITO ([id number]), editorial specialist GUIDO GOLD ([id number]) on 07/17/2021 1:37:18 PM Referred By: JEFF Confirmed By:RITO GEE MD
--- NOTE | 2021-07-11 08:49 | EDS_ITS ---
HPI History of Present Illness Chief Complaint: Fall Detail of Chief Complaint: Chest pain, shortness of breath, noncompliance with medication Informant: patient Onset/Context/Timing Onset: Days Mechanism/Context: Blunt Injury and Fall Location of pain/injuries: - (Left chest wall and breast) Quality of Pain: Dull and Aching Current Severity: Mild Maximum Severity: Severe Worsened by: Movement and palpation Relieved by: Nothing Associated Symptoms Associated Symptoms: Negative for Parasthesias, Weakness, Loss of function, Inability to ambulate, Loss of consciousness and Amnesia Narrative Narrative: Patient is an elderly woman with multiple medical problems who reports that she was evicted from her residence. She apparently staying at a [facility] [address]. She has had several falls this past several days. She has head trauma. Denies loss of conscious. She is not amnestic. She denies neck pain. She denies paresthesia, anesthesia or motor weakness. She denies ocular, visual or auditory symptoms. She does report pain with breathing. She denies shortness of breath. She does report nausea without vomiting or diarrhea. She denies dysuria, frequency, urgency or hematuria. She states she had decreased p.o. intake. She reports thirst and dry mouth. Tetanus Immunization: Unknown Prior similar symptoms: No Recent Illness/Hospitalization: No PFSH PFSH Medical History Arthritis Diabetes Heart disease HTN (hypertension) Kidney disease Kidney stone LV dysfunction Non-smoker Ovarian cancer SOB (shortness of breath) Stroke Type II diabetes mellitus Home Medications aspirin 81 mg PO DAILY 07/25/19 [History Last Taken 06/08/21 09:00] albuterol sulfate 1 - 2 puff INHALATION Q4H PRN PRN 09/26/19 [History Last Taken 04/05/21] carvedilol 12.5 mg PO BID 09/26/19 [History Last Taken 06/08/21 09:00] ergocalciferol (vitamin D2) 50,000 unit PO TU 09/26/19 [History Last Taken Unknown] Flovent HFA 2 puff INHALATION BID 04/05/21 [History Last Taken Unknown] buspirone 10 mg PO BID PRN 04/05/21 [History Last Taken Unknown] escitalopram oxalate 20 mg PO DAILY 04/05/21 [History Last Taken 06/08/21 09:00] famotidine 40 mg PO BID 04/05/21 [History Last Taken Unknown] ferrous sulfate 325 mg PO BID 04/05/21 [History Last Taken Unknown] furosemide 20 mg PO BID PRN 04/05/21 [History Last Taken Unknown] rosuvastatin 10 mg PO DAILY 04/05/21 [History Last Taken 06/07/21] benazepril 20 mg PO DAILY 04/26/21 [History Last Taken 06/08/21 09:00] metformin 500 mg PO DAILY 04/26/21 [History Last Taken 06/08/21 09:00] Tresiba FlexTouch U-100 35 unit SUBCUT DAILY #0 ml 04/28/21 [Rx Last Taken 06/08/21 09:00] paroxetine HCl 10 mg PO DAILY 06/08/21 [History Last Taken 06/08/21 09:00] cefdinir 300 mg PO BID #10 cap 06/10/21 [Rx Last Taken Unknown] insulin aspart U-100 [Novolog Flexpen U-100 Insulin] 20 unit SUBCUT DAILY #15 ml 07/11/21 [Rx Last Taken Unknown] insulin degludec [Tresiba FlexTouch U-100] 40 unit SUBCUT DAILY #15 ml 07/11/21 [Rx Last Taken Unknown] Allergy/AdvReac Type Severity Reaction Status Date / Time latex Allergy Rash Verified 07/11/21 08:34 Penicillins Allergy Hives Verified 07/11/21 08:34 Family History Other Cancer Surgical History H/O heart surgery H/O knee surgery History of cholecystectomy History of coronary artery stent placement Social History (Updated 07/11/21 @ 08:[address] Tom Leary MD) household members: none housing: other details: Residing at the [address] Smoking Status: Never smoker alcohol intake: never substance use type: does not use ROS ROS ED Constitutional Constitutional ED: Denies chills, fever(s), subjective, sweats or weight loss Eyes Eyes: Denies blurry vision, change in vision or other ENT ENT ED: Denies ear pain, rhinorrhea or sore throat Cardiovascular Cardiovascular: Reports chest pain; Denies palpitations, paroxysmal nocturnal dyspnea or racing heartbeat Respiratory/Chest Respiratory/Chest: Denies cough, dyspnea, dyspnea on exertion, paroxysmal nocturnal dyspnea or sputum Gastrointestinal Gastrointestinal: Denies abdominal pain, constipation, diarrhea, nausea or vomiting Genitourinary Genitourinary ED: Denies dysuria, hematuria or urinary frequency Musculoskeletal Musculoskeletal: Denies arthralgias, back pain, myalgias or neck pain Integumentary Reports other Details: Bruising left breast and chest wall ; Denies rash Neurologic Neurologic: Denies headache(s), paresthesias or weakness Psychiatric Psychiatric: Reports depression Endocrine Endocrinology: Denies polydipsia, polyphagia or polyuria Hematologic/Lymphatic Hematologic/Lymphatic: Denies easy bleeding or easy bruising EXAM Physical Exam Const Vital Signs: 07/11/21 08:35 07/11/21 11:08 Temperature 97.5 F L Temperature Source Oral Pulse Rate 89 78 Respiratory Rate 17 14 Respiratory Effort Normal Non-Labored Respiratory Depth Normal Respiratory Pattern Normal Blood Pressure 138/86 H 146/77 H Blood Pressure Mean 103 100 Pulse Ox 96 96 Oxygen Delivery Method Room Air Room Air Positive well nourished and well developed General Appearance ED: well developed, NAD and other Patient's speech is slow. This may be due to prior stroke. HEENT Reports TM's clear HEENT Narrative: There is no palpable depression. There is no clinical findings of basal skull fracture. atraumatic; Negative for tenderness Nose: Negative for septum abnormal Tympanic Membrane ED: Yes TM's clear Eyes PERRL and EOMs intact bilaterally General Eye ED: Yes other Other Details: There is no scleral icterus. There is no subconjunctival hemorrhage. Neck full ROM General: Negative for tenderness Chest Wall Negative for inspection of chest normal or palpation of chest normal Chest Narrative: There is significant pain ovation of the left breast and left anterior chest wall and ribs. There is no crepitus or subcutaneous air noted. Resp normal respiratory effort and clear to auscultation bilaterally Cardio regular rhythm, S1 normal heart sound, S2 normal heart sound and no murmurs Rate: regular rate GI normal to inspection, nondistended, normoactive bowel sounds, non-tender, non- distended and no masses Auscultation: normoactive bowel sounds Palpation: soft Back/Spine normal to inspection and no thoracic nor lumbar tenderness General Back: Negative for CVA tenderness Extremity normal to inspection and full ROM General Extremety ED: Negative for deformity or tenderness General Extremity: Negative for deformity Neuro oriented x3, CN's II-XII intact bilaterally and moves all extremities Sensorium / Orientation: alert Psych Psych Narrative: Affect is flat. Mood is depressed. Mentation is normal. Skin no rashes or lesions noted General Skin Exam: other Contusions noted left side of the torso. MDM MDM MDM Narrative Medical decision making narrative: Blood sugar apparently was high per paramedics. Since she reports noncompliance we will change PGT. Clinically she is dehydrated and will receive 1 L of normal saline. Chest x-ray was obtained to evaluate for pneumothorax/hemothorax. CBC to assess for anemia and leukocytosis. UA to assess for ketones and urinary tract infection. She did receive a [place] tablet for her chest wall contusion and pain. 8 units of insulin was ordered for elevated blood sugar. Lab Data Attestation: I reviewed the patient's lab results. Lab results narrative: Blood sugar is elevated 421. CO2 and anion gap are normal. CBC is unremarkable. Labs: Laboratory Results - last 24 hr 07/11/21 07/11/21 07/11/21 09:08 09:08 11:05 WBC 6.9 RBC 4.83 Hgb 13.7 Hct 39.3 MCV 81.4 MCH 28.4 MCHC 34.9 RDW Std Deviation 34.4 L RDW Coeff of Scotty 11.9 Plt Count 274 MPV 10.3 Immature Gran % (Auto) 0.400 Neut % (Auto) 62.8 Lymph % (Auto) 21.9 [place]pherson % (Auto) 11.8 H Eos % (Auto) 2.5 Baso % (Auto) 0.6 Absolute Neuts (auto) 4.3 Absolute Lymphs (auto) 1.50 Nucleated RBC % 0 Sodium 135 L Potassium 3.8 Chloride 99 Carbon Dioxide 22.0 Anion Gap 14 BUN 14 Creatinine 0.97 Estim Creat Clear Calc 38.40 Est GFR (MDRD) Af Amer 73 Est GFR (MDRD) Non-Af 60 BUN/Creatinine Ratio 14.5 Glucose 421 H Calcium 9.1 Urine Color Yellow Urine Clarity Sl. Cloudy Urine pH 5.0 Ur Specific [place] 1.020 Urine Protein 30 H Urine Glucose (UA) 1000 H Urine Ketones 150 A* Urine Occult Blood Negative Urine Nitrite Negative Urine Bilirubin Negative Urine Urobilinogen Normal Ur Leukocyte Esterase Negative Urine RBC 0 SEEN Urine WBC 0 SEEN Ur Squamous Epith Cells 0-5 SEEN Urine Bacteria 0 SEEN Urine Mucus 0 SEEN POC Glucose 07/11/21 11:37 WBC RBC Hgb Hct MCV MCH MCHC RDW Std Deviation RDW Coeff of Scotty Plt Count MPV Immature Gran % (Auto) Neut % (Auto) Lymph % (Auto) [place]pher[place] % (Auto) Eos % (Auto) Baso % (Auto) Absolute Neuts (auto) Absolute Lymphs (auto) Nucleated RBC % Sodium Potassium Chloride Carbon Dioxide Anion Gap BUN Creatinine Estim Creat Clear Calc Est GFR (MDRD) Af Amer Est GFR (MDRD) Non-Af BUN/Creatinine Ratio Glucose Calcium Urine Color Urine Clarity Urine pH Ur Specific [place] Urine Protein Urine Glucose (UA) Urine Ketones Urine Occult Blood Urine Nitrite Urine Bilirubin Urine Urobilinogen Ur Leukocyte Esterase Urine RBC Urine WBC Ur Squamous Epith Cells Urine Bacteria Urine Mucus POC Glucose 381 H Radiography Diagnostic Testing: Clinical Impression(s) from Imaging Studies Chest X-Ray 07/11/21 08:48 IMPRESSION: No acute abnormality is seen. Electronically Signed: Vraun Philippe MD at 9:33 EST , Service support , 2 view chest x-ray reveals normal cardiac silhouette and size. There is no active pneumothorax or hemothorax. There is no obvious fractured ribs. There is chronic changes noted. There is no acute process noted. X-ray was interpreted at 09:27 EKG Initial EKG: Attestation: I personally reviewed and interpreted this EKG as follows: Interpretation: Sinus Rhythm (Normal sinus rhythm with a ventricular rate of 87. CO interval 206 6 ms. QS duration 104 ms. QT duration 386 ms. [place] to the left. There is evidence of left anterior fascicular block. There is no changes to suggest hyperkalemia.) Discharge Plan Triage Chief Complaint: Fall ED Provider: Tom Leary Dx/Rx/DC Orders Clinical Impression: Hyperglycemia due to type 2 diabetes mellitus, Acute dehydration, Contusion of chest wall with intact skin, Injury due to fall Instructions: Bruises (Contusions), ED Fall with Uncertain Cause, ED Diet: Diabetes Prescriptions: New Tresiba FlexTouch U-100 100 unit/mL (3 mL) insulin pen 40 unit subcut DAILY Qty: 15 RF: 0 insulin aspart U-100 [Novolog Flexpen U-100 Insulin] 100 unit/mL (3 mL) insulin pen 20 unit subcut DAILY Qty: 15 RF: 0 No Action aspirin 81 MG tablet,chewable 81 mg PO DAILY RF: 0 carvedilol 12.5 MG tablet 12.5 mg PO BID RF: 0 ergocalciferol (vitamin D2) 50,000 UNIT capsule 50,000 unit PO TU RF: 0 albuterol sulfate 1 INHALER inhaler 1 - 2 puff inhalation Q4H PRN PRN (Reason: Sob &/Or Wheezing) RF: 0 famotidine 40 mg Tablet 40 mg PO BID RF: 0 ferrous sulfate 325 mg (65 mg iron) Tablet 325 mg PO BID RF: 0 buspirone 10 mg tablet 10 mg PO BID PRN (Reason: Anxiety) RF: 0 Flovent HFA 110 mcg/actuation Hfa Aerosol Inhaler 2 puff INHALATION BID RF: 0 escitalopram oxalate 20 mg tablet 20 mg PO DAILY RF: 0 rosuvastatin 10 mg tablet 10 mg PO DAILY RF: 0 furosemide 20 MG tablet 20 mg PO BID PRN (Reason: WT GAIN) RF: 0 benazepril 20 mg tablet 20 mg PO DAILY RF: 0 metformin 500 mg Tablet Extended Release 24hr 500 mg PO DAILY RF: 0 Tresiba FlexTouch U-100 100 unit/mL (3 mL) insulin pen 35 unit SUBCUT DAILY Qty: 0 RF: 0 paroxetine HCl 10 mg tablet 10 mg PO DAILY RF: 0 cefdinir 300 mg capsule 300 mg PO BID Qty: 10 RF: 0 Primary Care Provider: Martín Garcia Referrals: Martín Garcia DO [Primary Care Provider] - 1-2 Weeks Disposition Disposition: Home, Self Care
[2021-07-11 09:17] LABS: Absolute Neutrophil Count 4.3 X10^3/uL (2.0-7.7); Basophil# 0.04 X10^3/uL; Basophil% 0.6 % (0-1); Eosinophil# 0.17 X10^3/uL; Eosinophils% 2.5 % (0-5); Hematocrit 39.3 % (37-47); Hemoglobin 13.7 g/dL (12.0-15.0); Lymphocyte % 21.9 % (19-41); Mean Corp Hgb Conc 34.9 g/dL (32-36); Mean Corpuscular Hgb 28.4 pg (27.0-32.0); Mean Corpuscular Volume 81.4 fL (81-99); Mean Platelet Vol. 10.3 fl (6.2-12.0); Monocyte# 0.81 X10^3/uL; Monocyte% 11.8 % (0-10); NRBC Flagged by Analyzer 0 % (0-5); Neutrophil # 4.31 X10^3/uL (2.7-7.7); Neutrophil % 62.8 % (47-70); Platelet Count 274 K/mm3 (150-450); RBC Distribution Width CV 11.9 % (11.6-14.6); RBC Distribution Width SD 34.4 fl (35.1-43.9); Red Blood Count 4.83 M/mm3 (4.2-5.4); White Blood Count 6.9 K/mm3 (4.4-11.0)
[2021-07-11 09:34] LABS: Anion Gap 14 (5-15); BUN 14 mg/dL (7-18); BUN/Creat Ratio 14.5 RATIO (10-20); Calcium,Total 9.1 mg/dL (8.5-10.1); Chloride 99 mmol/L (98-107); Creatinine, Serum 0.97 mg/dL (0.55-1.02); EST Glomerular Filtration Rate 60 mL/min (>60); Est Glom Filt Rate - Afr Amer 73 mL/min (>60); Glucose 421 mg/dL (74-106); Potassium 3.8 mmol/L (3.5-5.1); Sodium Level 135 mmol/L (136-145)
[2021-07-11] MEDS: HYDROcodone Bitartrate/Apap 5/325 Tablet PO (09:37)
[2021-07-11] MEDS: 0.9% Normal Saline 1,000 ML 1000 ML IV (09:37)
[2021-07-11] MEDS: Insulin Lispro 100 UNIT/ML INSULN.PEN 8 UNIT SC (10:45)
[2021-07-11 11:08] VITALS: BP 146/77; PULSE 78; RESP 14; O2SAT 96
[2021-07-11 11:13] LABS: Bacteria 0 SEEN /hpf (None Seen); Mucous, Urine 0 SEEN /hpf (<or=2+); Red Blood Cells-Urine 0 SEEN /hpf (0-5); White Blood Cells 0 SEEN /hpf (0-5)
[2021-07-11 11:18] LABS: Color, Urine Yellow (Yellow); Glucose, Dipstick 1000 mg/dl (Normal); Leukocyte Esterase-Dipstick Negative /ul (Negative); Nitrite-Dipstick Negative (Negative); Occult Blood-Urine Negative /ul (Negative); Protein-Dipstick 30 mg/dl (Negative); Urine Bilirubin Dipstick Negative (Negative); Urine Clarity Sl. Cloudy (Clear); Urine Urobilinogen Normal (Normal)
[2021-07-11 11:20] LABS: Ketone-Dipstick 150 mg/dl (Negative)
[2021-07-11 11:23] LABS: Squamous Epithelial Cells - UA 0-5 SEEN /hpf (5-10)
[2021-07-11 11:41] LABS: Bedside Glucose 381 mg/dL (70-110)
--- NOTE | 2021-07-11 12:15 | CM.ED ---
SOCIAL WORK Referral Source: Dr. Leary Reason for Consult: Discharge Planning/Resources Met with patient in room. Introduced role and reason for referral. Patient is living in the [place] [address] with her son. Patient was recently evicted from home in [facility]. Patient states they won't allow me to go and get my medicine. Patient does not have some of her medications including her insulin. Patient gave permission for this worker to follow up with [facility] regarding possibility of her obtaining her medications. Call to [facility], spoke with Natividad. Per Natividad, the nuclear scientist has deemed the home hazardous and NO ONE is allowed in. Patient has been informed. Patient in agreement to have medications filled at [facility]. Patient states after this week we will be living in my van. Patient has spoken with [facility] and there is a 2 year wait list. Discussed assisted living facilities with patient. Patient states, I'm going to call my social sciences lecturer when I get back to the motel today. Education and support provided. Plan: Home with resources provided Michael Morrison MSW, CRM MARKETING EXECUTIVE
[2021-07-11 12:17] VITALS: BP 138/78; PULSE 71; RESP 16; O2SAT 97
--- NOTE | 2021-07-11 14:46 | ED.RN ---
court appointed guardian called to check on pt. pt was supposed to be in court today and came here instead. guardian was advised that pt went back to the [place] [address] with her son
== END 2021-07-11 12:40 | disposition home or self-care (01) ==
PROVIDERS: Emergency Provider Emergency Medicine; PCP Student in an Organized Health Care Education/Training Program
DX: E11.65 Type 2 diabetes mellitus with hyperglycemia (principal); E86.0 Dehydration; S20.212A Contusion of left front wall of thorax, initial encounter; S20.02XA Contusion of left breast, initial encounter; W19.XXXA Unspecified fall, initial encounter; Y93.9 Activity, unspecified; Y92.59 Other trade areas as the place of occurrence of the external cause; Y99.9 Unspecified external cause status; Z91.14 Patient's other noncompliance with medication regimen; R06.02 Shortness of breath; I10 Essential (primary) hypertension; M19.90 Unspecified osteoarthritis, unspecified site; Z79.82 Long term (current) use of aspirin; Z79.4 Long term (current) use of insulin; Z79.51 Long term (current) use of inhaled steroids; Z95.5 Presence of coronary angioplasty implant and graft
CPT/HCPCS: 71046; 80048; 81001; 82962; 85025; 93005; 96360; 96361; 99285; J7030; A4216